=== PATIENT | female | born 1940 | race Caucasian/White ===

== ENCOUNTER → 2017-02-28 | Outpatient (CLI) | payer MEDICARE ==
[2017-02-28 10:04] LABS: ANION GAP 12 (5-19); BLOOD UREA NITROGEN 20 mg/dL (7-20); CALCIUM 10.4 mg/dL (8.4-10.2); CARBON DIOXIDE 25 mmol/L (22-30); CHLORIDE 109 mmol/L (98-107); CREATININE RESULT 1.24 mg/dL (0.52-1.25); GLUCOSE 70 mg/dL (75-110); POTASSIUM 5.2 mmol/L (3.6-5.0); SODIUM 146.3 mmol/L (137-145)
[2017-03-01 11:38] LABS: CREATININE URINE 81.7 mg/dL (Not Estab.); MICROALBUMIN URINE 15.1 ug/mL (Not Estab.)
[2017-03-01 13:07] LABS: VITAMIN D 25-HYDROXY 35.4 ng/mL (30.0-100.0)
== END ==
LOC: OD 08:34
PROVIDERS: ATTEND Internal Medicine Nephrology
DX: N18.3 Chronic kidney disease, stage 3 (moderate) (principal)
CPT/HCPCS: 36415; 80048; 82043; 82306; 82570; 83970; 84100

== ENCOUNTER → 2018-03-31 | Outpatient (CLI) | payer MEDICARE ==
[2018-03-31 11:40] LABS: APPEARANCE,URINE SLIGHTLY-CLOUDY; BILIRUBIN,URINE NEGATIVE (NEGATIVE); COLOR,URINE YELLOW; GLUCOSE, URINE NEGATIVE (NEGATIVE); KETONES,URINE NEGATIVE (NEGATIVE); LEUKOCYTE ESTERASE,URINE NEGATIVE (NEGATIVE); NITRITE,URINE NEGATIVE (NEGATIVE); PROTEIN,URINE NEGATIVE (NEGATIVE); URINE SPECIFIC GRAVITY 1.013; UROBILINOGEN,URINE NEGATIVE mg/dL (<2.0)
[2018-03-31 11:54] LABS: ALBUMIN 4.5 g/dL (3.5-5.0); ANION GAP 14 (5-19); BLOOD UREA NITROGEN 21 mg/dL (7-20); CALCIUM 11.1 mg/dL (8.4-10.2); CARBON DIOXIDE 29 mmol/L (22-30); CHLORIDE 104 mmol/L (98-107); GLUCOSE 86 mg/dL (75-110); PHOSPHORUS 4.1 mg/dL (2.5-4.5); POTASSIUM 4.8 mmol/L (3.6-5.0); SODIUM 147.2 mmol/L (137-145)
[2018-04-01 12:38] LABS: CREATININE URINE 95.2 mg/dL (Not Estab.); MICROALBUMIN URINE 20.8 ug/mL (Not Estab.)
== END ==
LOC: OD 10:41
PROVIDERS: ATTEND Internal Medicine Nephrology
DX: I12.9 Hypertensive chronic kidney disease with stage 1 through stage 4 chronic kidney disease, or unspecified chronic kidney disease (principal); N18.3 Chronic kidney disease, stage 3 (moderate); D64.9 Anemia, unspecified
CPT/HCPCS: 36415; 80048; 81001; 82040; 82043; 82306; 82570; 83970; 84100

== ENCOUNTER → 2018-04-02 | Outpatient (CLI) | payer MEDICARE ==
--- NOTE | 2018-04-02 16:16 | RADIOLOGY REPORT (SQ) ---
EXAM DESCRIPTION: U/S RETROPERITON (RENAL/AORTA) COMPLETED DATE/TIME: 04/02/2018 4:06 pm REASON FOR STUDY: N18.3 CHRONIC KIDNEY DISEASE, STAGE 3 (MODERATE) N18.3 CHRONIC KIDNEY DISEASE, ST AGE 4 (MODERATE) COMPARISON: None. TECHNIQUE: Dynamic and static grayscale images acquired of the kidneys and bladder and recorded on P ACS. Additional selected color Doppler and spectral images recorded. LIMITATIONS: None. FINDINGS: RIGHT KIDNEY: 9.3 cm. Increased cortical echogenicity. 1 cm cyst upper pole. No hyd ronephrosis. No calcifications. LEFT KIDNEY: 8.4 cm. Increased cortical echogenicity. No solid or suspicious masses. No hydron ephrosis. No calcifications. BLADDER: No masses. OTHER: No other significant finding. IMPRESSION: CHRONIC MEDICAL RENAL DISEASE. NO HYDRONEPHROSIS. TECHNICAL DOCUMENTATION: JOB ID: [id number] [email or web address]- All Rights Reserved Reading location - IP/workstation name: [email or web address]
== END ==
LOC: MERGE 15:30 → RAD 15:50
PROVIDERS: ATTEND Internal Medicine Nephrology
DX: N18.3 Chronic kidney disease, stage 3 (moderate) (principal)
CPT/HCPCS: 76770

== ENCOUNTER → 2018-06-29 | Outpatient (CLI) | payer MEDICARE ==
[2018-06-29 11:20] LABS: ANION GAP 12 (5-19); BLOOD UREA NITROGEN 23 mg/dL (7-20); CALCIUM 9.9 mg/dL (8.4-10.2); CARBON DIOXIDE 25 mmol/L (22-30); CHLORIDE 110 mmol/L (98-107); GLUCOSE 80 mg/dL (75-110); POTASSIUM 5.1 mmol/L (3.6-5.0); SODIUM 147.1 mmol/L (137-145)
[2018-06-30 15:37] LABS: A/G RATIO 1.4 (0.7-1.7); ALBUMIN 2 3.7 g/dL (2.9-4.4); ALPHA-2-GLOBULIN 2 0.9 g/dL (0.4-1.0); GAMMA GLOBULIN 0.6 g/dL (0.4-1.8); GLOBULIN TOTAL 2.7 g/dL (2.2-3.9); MONOCLONAL SPIKE Not Observed g/dL (Not Observ); PROTEIN TOTAL SERUM 6.4 g/dL (6.0-8.5)
== END ==
LOC: OD 09:59
PROVIDERS: ATTEND Internal Medicine Nephrology
DX: N18.3 Chronic kidney disease, stage 3 (moderate) (principal); E83.52 Hypercalcemia
CPT/HCPCS: 36415; 80048; 84165

== ENCOUNTER → 2018-10-28 | Outpatient (CLI) | payer MEDICARE ==
[2018-10-28 10:22] LABS: APPEARANCE,URINE SLIGHTLY-CLOUDY; BILIRUBIN,URINE NEGATIVE (NEGATIVE); COLOR,URINE YELLOW; GLUCOSE, URINE NEGATIVE (NEGATIVE); KETONES,URINE NEGATIVE (NEGATIVE); LEUKOCYTE ESTERASE,URINE NEGATIVE (NEGATIVE); NITRITE,URINE NEGATIVE (NEGATIVE); PROTEIN,URINE 30 mg/dL (NEGATIVE); URINE SPECIFIC GRAVITY 1.015; UROBILINOGEN,URINE NEGATIVE mg/dL (<2.0)
[2018-10-28 10:38] LABS: ANION GAP 13 (5-19); BLOOD UREA NITROGEN 14 mg/dL (7-20); CALCIUM 9.6 mg/dL (8.4-10.2); CARBON DIOXIDE 22 mmol/L (22-30); CHLORIDE 109 mmol/L (98-107); GLUCOSE 97 mg/dL (75-110); POTASSIUM 4.3 mmol/L (3.6-5.0); SODIUM 144.1 mmol/L (137-145)
[2018-10-28 10:44] LABS: ABSOLUTE BASOPHILS # (AUTO) 0.1 10^3/uL (0.0-0.2); ABSOLUTE EOSINOPHILS # (AUTO) 0.5 10^3/uL (0.0-0.6); ABSOLUTE LYMPHOCYTES (AUTO) 1.8 10^3/uL (0.5-4.7); ABSOLUTE MONOCYTES (AUTO) 0.7 10^3/uL (0.1-1.4); ABSOLUTE NEUT (AUTO) 5.5 10^3/uL (1.7-8.2); BASOPHILS % (AUTO) 1.4 % (0-2); EOSINOPHILS % (AUTO) 5.3 % (0-6); HEMATOCRIT 32.5 % (36.0-47.0); HEMOGLOBIN 10.9 g/dL (12.0-15.5); LYMPHOCYTES % (AUTO) 21.3 % (13-45); MEAN CORPUSCULAR HEMOGLOBIN 31.2 pg (27.0-33.4); MEAN CORPUSCULAR HGB CONC 33.5 g/dL (32.0-36.0); MEAN CORPUSCULAR VOLUME 93 fl (80-97); MONOCYTES % (AUTO) 8.2 % (3-13); PLATELET COUNT 318 10^3/uL (150-450); SEGMENTED NEUTROPHILS % (AUTO) 63.8 % (42-78); TOTAL CELLS COUNTED % (AUTO) 100 %; WHITE BLOOD COUNT 8.6 10^3/uL (4.0-10.5)
== END ==
LOC: OD 09:22
PROVIDERS: ATTEND Internal Medicine Nephrology
DX: N18.3 Chronic kidney disease, stage 3 (moderate) (principal); D64.9 Anemia, unspecified
CPT/HCPCS: 36415; 80048; 81001; 85025

== ENCOUNTER 2018-12-17 23:52 | Inpatient (IN) | payer MEDICARE ==
--- NOTE | 2018-12-18 00:54 | RADIOLOGY REPORT (SQ) ---
EXAM DESCRIPTION: XR CHEST 1 VIEW COMPLETED DATE/TME: 12/18/2018 00:07 CLINICAL HISTORY: 78 years, Female, fall, pain COMPARISON: 06/20/2016 chest NUMBER OF VIEWS: 1 TECHNIQUE: Portable chest LIMITATIONS: None. FINDINGS: Heart size is normal. Osteopenia. Underlying hyperinflation. Lungs are clear. No pneumothorax IMPRESSION: Underlying hyperinflation. Lungs are clear copyright 2010 [employer]- All Rights Reserved
--- NOTE | 2018-12-18 01:08 | RADIOLOGY REPORT (SQ) ---
EXAM DESCRIPTION: XR HIP 1 VIEW BILATERAL COMPLETED DATE/TME: 12/18/2018 00:07 CLINICAL HISTORY: 78 years, Female, fall, pain COMPARISON: None. NUMBER OF VIEWS: 5 TECHNIQUE: AP pelvis and two-view each hip LIMITATIONS: None. FINDINGS: Osteopenia. Degenerative changes of the hips bilaterally. Slightly impacted, nondisplaced intertrochanteric fracture deformity of the left hip. No dislocation. No other acute fractures. IMPRESSION: Slightly impacted, nondisplaced left intertrochanteric hip fracture. Osteopenia copyright 2010 [employer]- All Rights Reserved
[2018-12-18] MEDS ORDERED: LIDOCAINE 5% (700 MG) TRANSDERMAL ADH..PATCH TP ONE (01:32)
[2018-12-18] MEDS ORDERED: ACETAMINOPHEN 325 MG TABLET PO ONE (01:32)
[2018-12-18 01:42] LABS: ABSOLUTE BASOPHILS # (AUTO) 0.2 10^3/uL (0.0-0.2); ABSOLUTE EOSINOPHILS # (AUTO) 0.1 10^3/uL (0.0-0.6); ABSOLUTE LYMPHOCYTES (AUTO) 0.9 10^3/uL (0.5-4.7); ABSOLUTE MONOCYTES (AUTO) 1.1 10^3/uL (0.1-1.4); ABSOLUTE NEUT (AUTO) 12.9 10^3/uL (1.7-8.2); BASOPHILS % (AUTO) 1.1 % (0-2); EOSINOPHILS % (AUTO) 0.8 % (0-6); HEMATOCRIT 30.2 % (36.0-47.0); LYMPHOCYTES % (AUTO) 5.7 % (13-45); MEAN CORPUSCULAR HEMOGLOBIN 31.2 pg (27.0-33.4); MEAN CORPUSCULAR HGB CONC 33.1 g/dL (32.0-36.0); MEAN CORPUSCULAR VOLUME 94 fl (80-97); MONOCYTES % (AUTO) 6.9 % (3-13); PLATELET COUNT 298 10^3/uL (150-450); RED CELL DISTRIBUTION WIDTH 15.1 % (11.5-14.0); SEGMENTED NEUTROPHILS % (AUTO) 85.5 % (42-78); TOTAL CELLS COUNTED % (AUTO) 100 %; WHITE BLOOD COUNT 15.1 10^3/uL (4.0-10.5)
[2018-12-18] MEDS ORDERED: DIPH/PERTUSS(ACELL)/TETANUS VAC/PF 0.5 ML SYR (>=10YO) IM ONE (01:48)
--- NOTE | 2018-12-18 01:48 | ER Document Report ---
ED General - General Chief Complaint: Fall Stated Complaint: FALL Time Seen by Provider: 12/18/18 00:06 Primary Care Provider: SUMI GILLESPIE MD [ACTIVE STAFF] - Follow up as needed Cannot obtain history due to: Dementia Notes: Patient is a 78-year-old female with past medical history of Alzheimer's dementia, hypertension, chronic kidney disease, presents after a fall of unclear mechanism. The patient is profoundly demented, unable to provide any history. Apparently she told EMS that she crawled across the floor to contact 911. Family and patient are unsure how long she was down the ground. The patient focuses on severe, constant, throbbing pain to her left hip. States any attempt at movement dramatically worsens this pain. Nothing improves the pain. No history of similar injury in the past. Is uncertain of whether or not she hit her head or neck tonight. Does not take any form of anticoagulation. TRAVEL OUTSIDE OF THE [place] IN LAST 30 DAYS: No - Related Data Allergies/Adverse Reactions: Penicillins Allergy (Verified 06/20/16 10:52) Past Medical History - General Information source: Patient, Relative Cannot obtain history due to: Dementia - Social History Smoking Status: Never Smoker Chew tobacco use (# tins/day): No Frequency of alcohol use: None Drug Abuse: None Lives with: Alone Family History: Reviewed & Not Pertinent Patient has suicidal ideation: No Patient has homicidal ideation: No - Past Medical History Cardiac Medical History: Reports: Hx Hypertension Pulmonary Medical History: Reports: Hx Asthma, Hx COPD Renal/ Medical History: Denies: Hx Peritoneal Dialysis Psychiatric Medical History: Reports: Hx Dementia Past Surgical History: Reports: Hx Appendectomy, Hx Cholecystectomy, Hx Hysterectomy - Immunizations Hx Diphtheria, Pertussis, Tetanus Vaccination: Yes Review of Systems - Review of Systems Notes: Constitutional: Negative for fever. Eyes: Negative for visual changes. ENT: Negative for facial injury Cardiovascular: Negative for chest injury. Respiratory: Negative for shortness of breath. Gastrointestinal: Negative for abdominal injury. Genitourinary: Negative for genital injury Musculoskeletal: Positive for left hip injury Skin: Positive for laceration/abrasions. Neurological: Negative for head injury. Physical Exam - Vital signs Interpretation: Normal Notes: PHYSICAL EXAMINATION: GENERAL: Frail, elderly female in no acute distress HEAD: Atraumatic, normocephalic. EYES: Pupils equal round and reactive to light, extraocular movements intact, sclera anicteric, conjunctiva are normal. ENT: nares patent, no oral pharyngeal trauma. No hemotympanum, no Prater's sign, no raccoon eyes. NECK: No midline cervical spine tenderness. Patient able to move their head to 45 bilaterally without any discomfort. LUNGS: Breath sounds clear to auscultation bilaterally and equal. No wheezes rales or rhonchi. HEART: Regular rate and rhythm without murmurs. CHEST WALL: No ecchymosis over the chest wall. ABDOMEN: Soft, nontender, normoactive bowel sounds. No guarding, no rebound. No abdominal bruising EXTREMITIES: Visible shortening and external rotation of the left lower extremity relative to the right BACK: No midline spinal tenderness, step-offs, or deformities. NEUROLOGICAL: Moves all extremities spontaneously on command PSYCH: Moderately anxious, alert, oriented to person SKIN: Warm, Dry, normal turgor, superficial laceration overlying the dorsum of the left wrist Course - Re-evaluation Re-evalutation: 12/18/18 01:44 Presentation of a frail elderly female after a fall. Patient denies a syncopal episode as the cause for today's fall although she is quite demented and not a reliable historian. No focal neurologic deficits on exam, no evidence of basilar skull fracture on exam without evidence of hemotympanum, raccoon eyes, or periauricular hematoma. No papilledema. Patient is not on anticoagulation. GCS is 15. No loss of consciousness. No episodes of vomiting. However, based on patient's age a CT of the head has been obtained which is negative for any acute intracranial bleed. Likewise, patient was unable to be clinically cleared due to age by [place] cervical spine criteria. A CT of the cervical spine was also obtained and likewise is negative for any acute fracture. No indication for further imaging of the cervical spine. Patient has severe pain in her left hip and obvious shortening of the left hip by approximately 1 cm. A hip x-ray does reveal a slightly displaced, impacted intertrochanteric fracture on the left. Patient was also complaining of some right-sided chest discomfort where she believes she hit her chest. An x-ray of the chest does not demonstrate any acute rib fractures. The patient has several areas of bruising over her right hand and skin avulsion over the left wrist. X-rays of these areas noted to be unremarkable. Blood work and urinalysis are pending. Pain control being provided. I have discussed with Dr. Deleon who will consult for surgical management in the morning. The patient will be admitted to the hospitalist. - Laboratory Result Diagrams: 12/18/18 00:07 12/18/18 00:07 Laboratory results interpreted by me: 12/18/18 12/18/18 12/18/18 00:07 00:07 02:50 WBC 15.1 H RBC 3.20 L Hgb 10.0 L Hct 30.2 L RDW 15.1 H Seg Neutrophils % 85.5 H Lymphocytes % 5.7 L Absolute Neutrophils 12.9 H Chloride 108 H Creatinine 1.47 H Est GFR ( Amer) 42 L Est GFR (Non-Af Amer) 34 L Glucose 131 H Urine Ascorbic Acid 40 H - Diagnostic Test Radiology reviewed: Image reviewed, Reports reviewed Radiology results interpreted by me: 12/18/18 04:30 Left hip x-ray: Intertrochanteric fracture Discharge - Discharge Clinical Impression: Hip fracture Qualifiers: Encounter type: initial encounter Fracture type: closed Laterality: left Qualified Code(s): S72.002A - Fracture of unspecified part of neck of left femur, initial encounter for closed fracture Dementia Qualifiers: Dementia type: unspecified type Dementia behavioral disturbance: without behavioral disturbance Qualified Code(s): F03.90 - Unspecified dementia without behavioral disturbance Fall Qualifiers: Encounter type: initial encounter Qualified Code(s): W19.XXXA - Unspecified fall, initial encounter Condition: Fair Disposition: ADMITTED INPATIENT Admitting Provider: Hospitalist Unit Admitted: Medical Floor Referrals: SUMI GILLESPIE MD [ACTIVE STAFF] - Follow up as needed
[2018-12-18 01:51] LABS: ANION GAP 7 (5-19); BLOOD UREA NITROGEN 18 mg/dL (7-20); CALCIUM 9.4 mg/dL (8.4-10.2); CARBON DIOXIDE 25 mmol/L (22-30); CHLORIDE 108 mmol/L (98-107); GLUCOSE 131 mg/dL (75-110); POTASSIUM 4.3 mmol/L (3.6-5.0); SODIUM 140.4 mmol/L (137-145)
[2018-12-18] MEDS: MORPHINE SULFATE 10 MG/ML INJ IV PRN ×5 (01:54→20:37)
[2018-12-18] MEDS ORDERED: EMTRICITABINE/TENOFOVIR 200-300 MG TAB (3 TAB/ER DISP) PO PRN (02:48)
[2018-12-18] MEDS ORDERED: RALTEGRAVIR 400 MG TAB (6 TAB/ER DISP) PO PRN (02:49)
[2018-12-18 03:02] LABS: APPEARANCE,URINE CLEAR; BILIRUBIN,URINE NEGATIVE (NEGATIVE); COLOR,URINE YELLOW; GLUCOSE, URINE NEGATIVE (NEGATIVE); KETONES,URINE NEGATIVE (NEGATIVE); LEUKOCYTE ESTERASE,URINE NEGATIVE (NEGATIVE); NITRITE,URINE NEGATIVE (NEGATIVE); PROTEIN,URINE NEGATIVE (NEGATIVE); URINE SPECIFIC GRAVITY 1.008; UROBILINOGEN,URINE NEGATIVE mg/dL (<2.0)
--- NOTE | 2018-12-18 03:42 | RADIOLOGY REPORT (SQ) ---
EXAM DESCRIPTION: CT HEAD WITHOUT IV CONTRAST COMPLETED DATE/TME: 12/18/2018 01:44 CLINICAL HISTORY: 78 years, Female, fall COMPARISON: None Available. Technique: Contiguous axial images of the brain were obtained without the administration of intravenous contrast. Coronal and sagittal reformats obtained and reviewed. This exam was performed according to our departmental dose-optimization program which includes use of Automated Exposure Control, adjustment of the mA and/or kV according to patient size and/or use of iterative reconstruction technique. Findings: Brain: Mild cerebral atrophy. Periventricular and deep white matter hypodensities, most commonly due to nonspecific white matter chronic microvascular ischemia.No hemorrhage. No territorial infarct. No mass effect. No herniation. Ventricles: Within normal limits for patient's age. Bones: No acute osseous abnormality. Paranasal sinuses: Unremarkable. Mastoid air cells: Unremarkable. Soft tissues: No acute abnormality. IMPRESSION: No acute intracranial abnormalities.
--- NOTE | 2018-12-18 03:53 | RADIOLOGY REPORT (SQ) ---
EXAM DESCRIPTION: XR WRIST 3 OR MORE VIEWS COMPLETED DATE/TME: 12/18/2018 01:48 CLINICAL HISTORY: 78 years, Female, trauma, fall COMPARISON: None. NUMBER OF VIEWS: Three TECHNIQUE: AP, oblique and lateral views of the left wrist LIMITATIONS: None. FINDINGS: Mild osteopenia. Mild degenerative changes in the first carpometacarpal joint. No acute fractures. Soft tissues are unremarkable. IMPRESSION: No acute osseous abnormalities. copyright 2010 [employer]- All Rights Reserved
--- NOTE | 2018-12-18 03:55 | RADIOLOGY REPORT (SQ) ---
EXAM DESCRIPTION: XR HAND 3 OR MORE VIEWS COMPLETED DATE/TME: 12/18/2018 01:48 CLINICAL HISTORY: 78 years, Female, trauma, fall COMPARISON: None. NUMBER OF VIEWS: Three TECHNIQUE: AP, oblique and lateral views of the right hand LIMITATIONS: None. FINDINGS: Mild degenerative changes in the first carpometacarpal joint. No acute fractures. No dislocation. The tip of the index finger is obscured by pulse oximeter. IMPRESSION: No acute osseous abnormalities. copyright 2010 [employer]- All Rights Reserved
--- NOTE | 2018-12-18 03:58 | RADIOLOGY REPORT (SQ) ---
EXAM DESCRIPTION: CT CERVICAL SPINE WITHOUT IV CONTRAST COMPLETED DATE/TME: 12/18/2018 01:44 CLINICAL HISTORY: 78 years, Female, fall COMPARISON: None. TECHNIQUE: 177 Images stored on PACS. All CT scanners at this facility use dose modulation, iterative reconstruction, and/or weight based dosing when appropriate to reduce radiation dose to as low as reasonably achievable (ALARA). [facility]: Dose Right [facility]: CareDose [facility]: Dose Right [facility]: Teradose 4D [facility]: ForeSee LIMITATIONS: None. FINDINGS: Evaluation of spinal canal contents limited due to CT technique. However, vertebral body height and alignment is preserved. The atlantoaxial space is preserved. The lateral masses are not displaced. Minor multilevel facet arthropathy throughout the cervical spine. Limited evaluation of extraspinal anatomic structures shows emphysematous changes in the lung apices. Left sphenoid sinusitis.. IMPRESSION: Negative for acute C-spine abnormality. Multilevel degenerative change. Left sphenoid sinusitis. Emphysematous changes.. TECHNICAL DOCUMENTATION: Quality ID # 436: Final reports with documentation of one or more dose reduction techniques (e.g., Automated exposure control, adjustment of the mA and/or kV according to patient size, use of iterative reconstruction technique) copyright 2010 [employer]- All Rights Reserved
[2018-12-18] MEDS ORDERED: DEXTROSE 40% GEL 15 GM TUBE PO PRN ×2 (07:57)
[2018-12-18] MEDS ORDERED: GLUCAGON,HUMAN RECOMB 1 MG INJ SUBCUT PRN (07:57)
[2018-12-18] MEDS ORDERED: ONDANSETRON HCL INJ/PF 4 MG/2 ML SDV IV PRN (07:57)
[2018-12-18] MEDS ORDERED: DEXTROSE 50%-WATER 25 GM/50 ML DISP.SYRIN IV PRN ×2 (07:57)
[2018-12-18] MEDS ORDERED: ACETAMINOPHEN 325 MG TABLET PO PRN (08:06)
[2018-12-18] MEDS ORDERED: NICOTINE 21 MG/24 HR PATCH.TD24 TD PRN (08:06)
[2018-12-18] MEDS ORDERED: ACETAMINOPHEN 650 MG SUPP.RECT PR PRN (08:06)
[2018-12-18] MEDS ORDERED: MORPHINE SULFATE 10 MG/ML INJ IV PRN (08:06)
--- NOTE | 2018-12-18 08:29 | PDOC H&P ---
History of Present Illness Admission Date/PCP: 12/18/18 04:41 MIGUEL LOWRY MD Patient complains of: Left hip pain History of Present Illness: ARPIT ARITA is a 78 year old female who was presented to the emergency room via EMS with a history that she had fallen at some time at home and had developed sudden pain of her left hip and inability to stand on the hip after the fall. She apparently crawled to the phone in order to get help by contacting 911. Patient unfortunately has rather profound dementia and is unable to contribute any more useful information to her medical care. She is unsure of how long she may have been down and is not sure of the circumstances of the fall she is however certain that her left hip is severely painful whenever it is moved or pressure is applied to the area. In the emergency room she was found to have an intertrochanteric fracture of the left hip and subsequently will be admitted to our service for medical care and Dr. Deleon will be consulted for orthopedic evaluation and treatment. Past Medical History Past Medical History: History for past medical, social, family histories is obtained primarily from available charts, as the patient has severe dementia Cardiac Medical History: Reports: Hypertension Denies: Atrial Fibrillation, Coronary Artery Disease, DVT, Hyperlipidema, Pulmonary Embolism Pulmonary Medical History: Reports: Asthma, Chronic Obstructive Pulmonary Disease (COPD) EENT Medical History: Reports: None Neurological Medical History: Denies: Hemorrhagic CVA, Ischemic CVA, Seizures Endocrine Medical History: Denies: Diabetes Mellitus Type 1, Diabetes Mellitus Type 2, Hyperthyroidism, Hypothyroidism Renal/ Medical History: Denies: Chronic Kidney Disease, Nephrolithiasis Malignancy Medical History: Reports: None GI Medical History: Denies: Cirrhosis, Hepatitis Musculoskeltal Medical History: Reports: Arthritis, Other - Osteopenia Denies: Fibromyalgia Skin Medical History: Denies: Eczema, Psoriasis Psychiatric Medical History: Reports: Dementia Denies: Alcohol Dependency, Substance Abuse, Tobacco Dependency Traumatic Medical History: Reports: None Hematology: Reports: Anemia Denies: Bleeding Tendencies Infectious Medical History: Reports: None Past Surgical History Past Surgical History: Reports: Appendectomy, Cholecystectomy, Hysterectomy Social History Information Source: Patient Lives with: Alone Smoking Status: Never Smoker Frequency of Alcohol Use: None Hx Recreational Drug Use: No Drugs: None Hx Prescription Drug Abuse: No - Advance Directive Resuscitation Status: Full Code Surrogate healthcare decision maker:: Son Family History Family History: Hypertension Parental Family History Reviewed: Yes Children Family History Reviewed: Yes Sibling(s) Family History Reviewed.: Yes Medication/Allergy Home Medications: Albuterol Sulfate [Proair Hfa Inhalation Aerosol 8.5 gm Mdi] 1 puff IH Q4 PRN 01/05/16 Albuterol Sulfate [Ventolin Hfa] 1 - 2 puff IH Q4 PRN 01/05/16 Alendronate Sodium [Binosto] 70 mg PO Q7D 01/05/16 Losartan Potassium [Cozaar 50 mg Tablet] 50 mg PO DAILY 01/05/16 Albuterol Sulfate [Proair HFA] 1 - 2 puff IH Q4 PRN 06/20/16 Alendronate Sodium [Fosamax 70 mg Tablet] 1 tab PO Q1 06/20/16 Budesonide/Formoterol Fumarate [Symbicort HFA 160-4.5 mcg Inhaler 6 gm] 2 puff IH BID 06/20/16 Donepezil HCl [Aricept] 10 mg PO DAILY 06/20/16 Losartan Potassium 25 mg PO DAILY 06/20/16 Aspirin [Ecotrin 81 mg EC Tablet] 81 mg PO DAILY #30 tabec 06/22/16 Loperamide HCl [Imodium 2 mg Capsule] 2 mg PO Q6HP PRN #30 capsule 06/22/16 Allergies/Adverse Reactions: Penicillins Allergy (Verified 06/20/16 10:52) Review of Systems ROS unobtainable: Due to mental status - Dementia Physical Exam Vital Signs: Intake & Output 12/16/18 12/17/18 12/18/18 23:59 23:59 23:59 Weight 45.9 kg General appearance: PRESENT: cooperative, mild distress - Secondary left hip pain, thin Head exam: PRESENT: atraumatic, normocephalic Eye exam: PRESENT: conjunctiva pink, EOMI. ABSENT: scleral icterus Ear exam: PRESENT: normal external ear exam. ABSENT: bleeding, drainage Mouth exam: PRESENT: dry mucosa, neck supple Neck exam: PRESENT: full ROM. ABSENT: JVD, thyromegaly, tracheal deviation Respiratory exam: PRESENT: clear to auscultation raeann, symmetrical, unlabored Cardiovascular exam: PRESENT: RRR, systolic murmur - 2/6 systolic murmur at the aortic root with radiation to the neck. ABSENT: clicks, gallop, rubs Pulses: PRESENT: normal radial pulses, normal dorsalis pedis pul Vascular exam: PRESENT: normal capillary refill. ABSENT: pallor GI/Abdominal exam: PRESENT: normal bowel sounds, soft Rectal exam: PRESENT: deferred Extremities exam: PRESENT: tenderness - Left hip pain on palpation and movement. ABSENT: joint swelling, pedal edema Musculoskeletal exam: PRESENT: deformity - Left lower extremity is shortened and externally rotated, tenderness - Left hip with decreased range of motion secondary to pain. ABSENT: dislocation Neurological exam: PRESENT: alert, awake, oriented to person, CN II-XII grossly intact. ABSENT: oriented to place, oriented to time, oriented to situation, mo tor sensory deficit Psychiatric exam: PRESENT: appropriate affect, normal mood Skin exam: PRESENT: dry, intact, warm. ABSENT: jaundice, rash, urticaria Results Laboratory Results: 12/18/18 00:07 12/18/18 00:07 12/18/18 12/18/18 12/18/18 00:07 00:07 02:50 WBC 15.1 H RBC 3.20 L Hgb 10.0 L Hct 30.2 L MCV 94 MCH 31.2 MCHC 33.1 RDW 15.1 H Plt Count 298 Seg Neutrophils % 85.5 H Lymphocytes % 5.7 L Monocytes % 6.9 Eosinophils % 0.8 Basophils % 1.1 Absolute Neutrophils 12.9 H Absolute Lymphocytes 0.9 Absolute Monocytes 1.1 Absolute Eosinophils 0.1 Absolute Basophils 0.2 Sodium 140.4 Potassium 4.3 Chloride 108 H Carbon Dioxide 25 Anion Gap 7 BUN 18 Creatinine 1.47 H Est GFR ( Amer) 42 L Est GFR (Non-Af Amer) 34 L Glucose 131 H Calcium 9.4 Urine Color YELLOW Urine Appearance CLEAR Urine pH 5.0 Ur Specific [place] 1.008 Urine Protein NEGATIVE Urine Glucose (UA) NEGATIVE Urine Ketones NEGATIVE Urine Blood NEGATIVE Urine Nitrite NEGATIVE Ur Leukocyte Esterase NEGATIVE Urine WBC (Auto) 1 Urine RBC (Auto) 0 12/18/18 00:07 Troponin I < 0.012 Impressions: Chest X-Ray 12/18/18 00:07 IMPRESSION: Underlying hyperinflation. Lungs are clear copyright 2010 [employer]- All Rights Reserved Hip X-Ray 12/18/18 00:07 IMPRESSION: Slightly impacted, nondisplaced left intertrochanteric hip fracture. Osteopenia copyright 2010 [employer]- All Rights Reserved Cervical Spine CT 12/18/18 01:44 IMPRESSION: Negative for acute C-spine abnormality. Multilevel degenerative change. Left sphenoid sinusitis. Emphysematous changes.. TECHNICAL DOCUMENTATION: Quality ID # 436: Final reports with documentation of one or more dose reduction techniques (e.g., Automated exposure control, adjustment of the mA and/or kV according to patient size, use of iterative reconstruction technique) copyright 2010 [email or web address]- All Rights Reserved Head CT 12/18/18 01:44 IMPRESSION: No acute intracranial abnormalities. Hand X-Ray 12/18/18 01:48 IMPRESSION: No acute osseous abnormalities. copyright 2010 [employer]- All Rights Reserved Wrist X-Ray 12/18/18 01:48 IMPRESSION: No acute osseous abnormalities. copyright 2010 [employer]- All Rights Reserved Assessment & Plan - Diagnosis (1) Closed intertrochanteric fracture of left femur Qualifiers: Encounter type: initial encounter Fracture alignment: displaced Qualified Code(s): S72.142A - Displaced intertrochanteric fracture of left femur, initial encounter for closed fracture Is this a current diagnosis for this admission?: Yes Plan: Dr. Rm Deleon will be consulted for surgical evaluation and treatment. Patient's pain will be controlled with morphine sulfate 2-4 mg IV every 2 hours as needed for pain per sliding scale. Additionally she will receive IV fluid resuscitation and maintenance as well as a John catheter will be positioned. (2) Dementia Qualifiers: Dementia type: Alzheimer's disease Dementia behavioral disturbance: without behavioral disturbance Qualified Code(s): F03.90 - Unspecified dementia witho ut behavioral disturbance Is this a current diagnosis for this admission?: Yes Plan: Patient will be treated with behavioral measures during her hospital course. (3) Hypertension Qualifiers: Hypertension type: essential hypertension Qualified Code(s): I10 - Essential (primary) hypertension Is this a current diagnosis for this admission?: Yes Plan: Patient will be continued on her usual antihypertensive therapy when she is again able to take oral medications. (4) Chronic obstructive pulmonary disease Qualifiers: COPD type: unspecified COPD Qualified Code(s): J44.9 - Chronic obstructive pulmonary disease, unspecified Is this a current diagnosis for this admission?: Yes Plan: Patient will be treated with an aggressive nebulizer therapy regimen to promote better pulmonary function and thereby improve her postoperative recovery. - Time Time Spent: 30 to 50 Minutes Critical Time spent with patient: Less than 15 minutes Medications reviewed and adjusted accordingly: Yes Anticipated discharge: SNF - Inpatient Certification Based on my medical assessment, after consideration of the patient's comorbidities, presenting symptoms, or acuity I expect that the services needed warrant INPATIENT care.: Yes I certify that my determination is in accordance with my understanding of Medicare's requirements for reasonable and necessary INPATIENT services [42 CFR 412.3e].: Yes Medical Necessity: Need Close Monitoring Due to Risk of Patient Decompensation, Need for Pain Control, Need for Surgery, Risk of Complication if Not Cared For in Hospital
--- NOTE | 2018-12-18 08:59 | PDOC H&P ---
History of Present Illness Admission Date/PCP: 12/18/18 04:41 MIGUEL LOWRY MD History of Present Illness: ARPIT ARITA is a 78 year old female Patient is a 78-year-old white female with dementia and unknown ambulatory capacity who presents the emergency room status post a fall and unable to bear weight on the left lower extremity. Evaluation emergency room with x-rays demonstrated displaced basicervical left femoral neck fracture Past Medical History Cardiac Medical History: Reports: Hypertension Denies: Atrial Fibrillation, Coronary Artery Disease, DVT, Hyperlipidema, Pulmonary Embolism Pulmonary Medical History: Reports: Asthma, Chronic Obstructive Pulmonary Disease (COPD) EENT Medical History: Reports: None Neurological Medical History: Denies: Hemorrhagic CVA, Ischemic CVA, Seizures Endocrine Medical History: Denies: Diabetes Mellitus Type 1, Diabetes Mellitus Type 2, Hyperthyroidism, Hypothyroidism Renal/ Medical History: Denies: Chronic Kidney Disease, Nephrolithiasis Malignancy Medical History: Reports: None GI Medical History: Denies: Cirrhosis, Hepatitis Musculoskeltal Medical History: Reports: Arthritis, Other - Osteopenia Denies: Fibromyalgia Skin Medical History: Denies: Eczema, Psoriasis Psychiatric Medical History: Reports: Dementia Denies: Alcohol Dependency, Substance Abuse, Tobacco Dependency Traumatic Medical History: Reports: None Hematology: Reports: Anemia Denies: Bleeding Tendencies Infectious Medical History: Reports: None Past Surgical History Past Surgical History: Reports: Appendectomy, Cholecystectomy, Hysterectomy Social History Information Source: [facility] Records Lives with: Alone Smoking Status: Never Smoker Frequency of Alcohol Use: None Hx Recreational Drug Use: No Drugs: None Hx Prescription Drug Abuse: No - Advance Directive Resuscitation Status: Full Code Family History Family History: Hypertension Parental Family History Reviewed: No Children Family History Reviewed: No Sibling(s) Family History Reviewed.: No Medication/Allergy Home Medications: Albuterol Sulfate [Proair Hfa Inhalation Aerosol 8.5 gm Mdi] 1 puff IH Q4 PRN 01/05/16 Albuterol Sulfate [Ventolin Hfa] 1 - 2 puff IH Q4 PRN 01/05/16 Alendronate Sodium [Binosto] 70 mg PO Q7D 01/05/16 Losartan Potassium [Cozaar 50 mg Tablet] 50 mg PO DAILY 01/05/16 Albuterol Sulfate [Proair HFA] 1 - 2 puff IH Q4 PRN 07/28/16 Alendronate Sodium [Fosamax 70 mg Tablet] 1 tab PO Q1 06/20/16 Budesonide/Formoterol Fumarate [Symbicort HFA 160-4.5 mcg Inhaler 6 gm] 2 puff IH BID 06/20/16 Donepezil HCl [Aricept] 10 mg PO DAILY 06/20/16 Losartan Potassium 25 mg PO DAILY 06/20/16 Aspirin [Ecotrin 81 mg EC Tablet] 81 mg PO DAILY #30 tabec 06/22/16 Loperamide HCl [Imodium 2 mg Capsule] 2 mg PO Q6HP PRN #30 capsule 06/22/16 Allergies/Adverse Reactions: Penicillins Allergy (Verified 06/20/16 10:52) Review of Systems ROS unobtainable: Due to mental status Physical Exam Vital Signs: Intake & Output 12/17/18 12/18/18 12/19/18 06:59 06:59 06:59 Weight 45.9 kg Physical Exam: Patient is a frail-appearing relatively small elderly white female lying on an emergency room gurney. Patient is able to complain of pain but is not able to provide any meaningful communication and history. General appearance: PRESENT: mild distress, severe distress Head exam: PRESENT: normocephalic Respiratory exam: PRESENT: unlabored Cardiovascular exam: PRESENT: RRR Pulses: PRESENT: +1 pedal pulses bilateral Vascular exam: PRESENT: normal capillary refill GI/Abdominal exam: PRESENT: soft Rectal exam: PRESENT: deferred Extremities exam: PRESENT: other - Left lower extremity rotated and shortened. There is brisk capillary refill. There is retraction to painful stimuli. Skin exam: PRESENT: dry, intact, warm. ABSENT: cyanosis, rash Results Laboratory Results: 12/18/18 00:07 12/18/18 00:07 12/18/18 12/18/18 12/18/18 00:07 00:07 02:50 WBC 15.1 H RBC 3.20 L Hgb 10.0 L Hct 30.2 L MCV 94 MCH 31.2 MCHC 33.1 RDW 15.1 H Plt Count 298 Seg Neutrophils % 85.5 H Lymphocytes % 5.7 L Monocytes % 6.9 Eosinophils % 0.8 Basophils % 1.1 Absolute Neutrophils 12.9 H Absolute Lymphocytes 0.9 Absolute Monocytes 1.1 Absolute Eosinophils 0.1 Absolute Basophils 0.2 Sodium 140.4 Potassium 4.3 Chloride 108 H Carbon Dioxide 25 Anion Gap 7 BUN 18 Creatinine 1.47 H Est GFR ( Amer) 42 L Est GFR (Non-Af Amer) 34 L Glucose 131 H Calcium 9.4 Urine Color YELLOW Urine Appearance CLEAR Urine pH 5.0 Ur Specific [place] 1.008 Urine Protein NEGATIVE Urine Glucose (UA) NEGATIVE Urine Ketones NEGATIVE Urine Blood NEGATIVE Urine Nitrite NEGATIVE Ur Leukocyte Esterase NEGATIVE Urine WBC (Auto) 1 Urine RBC (Auto) 0 12/18/18 00:07 Troponin I < 0.012 Impressions: Chest X-Ray 12/18/18 00:07 IMPRESSION: Underlying hyperinflation. Lungs are clear copyright 2010 [employer] Hip X-Ray 12/18/18 00:07 IMPRESSION: Slightly impacted, nondisplaced left intertrochanteric hip fracture. Osteopenia copyright 2010 [employer] Reserved Cervical Spine CT 12/18/18 01:44 IMPRESSION: Negative for acute C-spine abnormality. Multilevel degenerative change. Left sphenoid sinusitis. Emphysematous changes.. TECHNICAL DOCUMENTATION: Quality ID # 436: Final reports with documentation of one or more dose reduction techniques (e.g., Automated exposure control, adjustment of the mA and/or kV according to patient size, use of iterative reconstruction technique) copyright [address] [employer] Reserved Head [address] 12/18/18 01:44 IMPRESSION: No acute intracranial abnormalities. Hand X-Ray 12/18/18 01:48 IMPRESSION: No acute osseous abnormalities. copyright 2010 [employer] Reserved Wrist X-Ray 12/18/18 01:48 IMPRESSION: No acute osseous abnormalities. copyright 2011 [employer] All Rights Reserved Status: Imported from PACS Assessment & Plan - Diagnosis (1) Closed intertrochanteric fracture of left femur Qualifiers: Encounter type: initial encounter Fracture alignment: displaced Qualified Code(s): S72.142A - Displaced intertrochanteric fracture of left femur, initial encounter for closed fracture Is this a current diagnosis for this admission?: Yes Plan: 78-year-old white female with a left proximal femur fracture that would be best treated with an open reduction internal fixation. Dr. Adela ventura is aware the patient and will assume her care - Time Time Spent: 50 to 70 Minutes Anticipated discharge: Other Within: Other
--- NOTE | 2018-12-18 09:06 | EKG REPORT ---
SEVERITY:- OTHERWISE NORMAL ECG - SINUS RHYTHM BORDERLINE RIGHT AXIS DEVIATION LOW VOLTAGE IN FRONTAL LEADS : Confirmed by: Julianna Saucedo MD 18-Dec-2018 09:05:35
[2018-12-18] MEDS: ASPIRIN 81 MG TABLET, ENT COATED PO SCH (10:00)
[2018-12-18] MEDS: LOSARTAN POTASSIUM 50 MG TABLET PO SCH (10:00)
[2018-12-18] MEDS: FAMOTIDINE INJ/PF 20 MG/2 ML SDV IV SCH ×2 (10:01→22:11)
[2018-12-18] MEDS: RINGERS SOLUTION,LACTATED 1,000 ML IV PRN (13:52)
[2018-12-18] MEDS: IPRATROPIUM BROMIDE 0.02% NEB 0.5 MG/2.5 ML AMPUL NEB SCH ×2 (15:58→23:28)
[2018-12-18] MEDS: LEVALBUTEROL HCL NEB 1.25 MG/3 ML AMPUL NEB SCH ×2 (15:58→23:28)
[2018-12-18] MEDS: HEPARIN SOD (PORCINE) 5,000 UNIT/ML 1 ML SYRINGE SUBCUT SCH ×2 (16:16→22:10)
--- NOTE | 2018-12-18 19:16 | Progress Note ---
Provider Note Provider Note: Patient is a 78-year-old female with past medical history of Alzheimer's dementia, hypertension, chronic kidney disease, presents after a fall of unclear mechanism. The patient was admitted for a L hip fracture. No other notable injuries. Ortho has been consulted, they plan to operate tomorrow. Upon assessment, the patient is resting in bed. There is no family at the bedside to assist with providing history. The patient states she does not remember how she fell, just states she remembers 'going down.' (+) external rotation and shortening on the LLE. Additionally, the patient complains of R sided chest pain, non-radiating, reproducible with palpation. 1. HIP FRACTURE: XRAY shows impacted, non-displaced intertrocanteric fracture. Ortho consulted. Surgical repair tomorrow. Pain control with morphine and tylenol. 2. CHEST PAIN: EKG shows NSR. cardiac enzymes normal. pain reproducable with palpation. likely musculoskeletal 3. DEMENTIA: home dose namenda and aricept 4. HTN: Home dose losartan
[2018-12-18] MEDS: BUDESONIDE NEB 0.5 MG/2 ML AMPUL NEB SCH (20:24)
[2018-12-18] MEDS ORDERED: CEFAZOLIN 2 GM/D5W RTU 2 GM/50 ML RTUPB IV PRN (21:39)
--- NOTE | 2018-12-18 22:57 | EKG REPORT ---
SEVERITY:- BORDERLINE ECG - SINUS RHYTHM BORDERLINE T ABNORMALITIES, DIFFUSE LEADS : Confirmed by: Julianna Saucedo MD 18-Dec-2018 22:56:01
[2018-12-19] MEDS: RINGERS SOLUTION,LACTATED 1,000 ML IV PRN ×2 (03:23→21:58)
[2018-12-19] MEDS: HEPARIN SOD (PORCINE) 5,000 UNIT/ML 1 ML SYRINGE SUBCUT SCH (05:13)
[2018-12-19 07:35] LABS: BLOOD UREA NITROGEN 24 mg/dL (7-20); CALCIUM 8.2 mg/dL (8.4-10.2); GLUCOSE 114 mg/dL (75-110)
[2018-12-19 07:40] LABS: HEMATOCRIT 22.7 % (36.0-47.0); MEAN CORPUSCULAR HEMOGLOBIN 31.3 pg (27.0-33.4); MEAN CORPUSCULAR HGB CONC 33.6 g/dL (32.0-36.0); MEAN CORPUSCULAR VOLUME 93 fl (80-97); PLATELET COUNT 213 10^3/uL (150-450); RED BLOOD COUNT 2.45 10^6/uL (3.72-5.28); RED CELL DISTRIBUTION WIDTH 15.5 % (11.5-14.0); WHITE BLOOD COUNT 8.2 10^3/uL (4.0-10.5)
[2018-12-19 07:41] LABS: CARBON DIOXIDE 27 mmol/L (22-30); CHLORIDE 111 mmol/L (98-107); SODIUM 140.8 mmol/L (137-145)
[2018-12-19 07:45] LABS: ANION GAP 3 (5-19)
[2018-12-19 07:46] LABS: HEMOGLOBIN 7.6 g/dL (12.0-15.5)
[2018-12-19] MEDS ORDERED: FENTANYL CITRATE INJ/PF 100 MCG/2 ML AMPUL ONE (07:49)
[2018-12-19] MEDS ORDERED: LIDOCAINE 2% INJ-PF (20 MG/ML) 10 ML AMPUL ONE (07:49)
[2018-12-19] MEDS ORDERED: MIDAZOLAM 2 MG/2 ML INJ ONE (07:49)
[2018-12-19] MEDS ORDERED: BUPIVACAINE HCL/DEX-WATER/PF 15 MG/2 ML AMPULE ONE ×2 (07:50→10:23)
[2018-12-19] MEDS ORDERED: PROPOFOL INJ 200 MG/20 ML VIAL IV ONE (07:50)
[2018-12-19 07:52] LABS: FREE T3 3.84 pg/mL (2.77-5.27); FREE T4 (FREE THYROXINE) 1.6 ng/dL (0.78-2.19)
[2018-12-19 08:06] LABS: THYROID STIMULATING HORMONE 5.4 uIU/mL (0.47-4.68)
[2018-12-19] MEDS ORDERED: CEFAZOLIN INJ 1 GM VIAL ONE (08:38)
[2018-12-19] MEDS ORDERED: EPHEDRINE SULFATE INJ 50 MG/1 ML AMPULE ONE (08:40)
[2018-12-19] MEDS: IPRATROPIUM BROMIDE 0.02% NEB 0.5 MG/2.5 ML AMPUL NEB SCH ×2 (09:13→15:42)
[2018-12-19] MEDS: LEVALBUTEROL HCL NEB 1.25 MG/3 ML AMPUL NEB SCH ×2 (09:13→15:42)
[2018-12-19] MEDS: BUDESONIDE NEB 0.5 MG/2 ML AMPUL NEB SCH ×2 (09:13→19:08)
[2018-12-19] MEDS ORDERED: PROMETHAZINE HCL INJ 25 MG/1 ML VIAL IV PRN ×2 (09:44)
[2018-12-19] MEDS ORDERED: OXYCODONE-ACETAMINOPHEN 5-325 MG TABLET PO PRN ×2 (09:44)
[2018-12-19] MEDS ORDERED: DIPHENHYDRAMINE HCL 50 MG/ML VIAL IV PRN (09:44)
[2018-12-19] MEDS ORDERED: FENTANYL CITRATE INJ/PF 100 MCG/2 ML AMPUL IV PRN ×3 (09:44)
[2018-12-19] MEDS ORDERED: ONDANSETRON HCL INJ/PF 4 MG/2 ML SDV IV PRN (09:44)
[2018-12-19] MEDS ORDERED: (PENDING PHARMACY ID) (Folic Acid [Folic Acid] 0.8 MG) PO SCH (10:00)
[2018-12-19] MEDS ORDERED: (PENDING PHARMACY ID) (Donepezil Hcl [Aricept] 10 MG) PO SCH (10:00)
[2018-12-19] MEDS ORDERED: (PENDING PHARMACY ID) (Memantine Hcl [Namenda Xr] 28 MG) PO SCH (10:00)
[2018-12-19] MEDS ORDERED: (PENDING PHARMACY ID) (Calcium Carbonate/Vitamin D3 [Calcium 600 + Vit D Tablet] 1 TAB) PO SCH (10:00)
--- NOTE | 2018-12-19 10:21 | Operative Report ---
Operative Report DATE OF SURGERY: 12/19/18 PREOPERATIVE DIAGNOSIS: Displaced left intertrochanteric hip fracture POSTOPERATIVE DIAGNOSIS: Same OPERATION: Cephalo-medullary nailing of left intertrochanteric hip fracture SURGEON: CINDY MCMAHON ANESTHESIA: GA TISSUE REMOVED OR ALTERED: None COMPLICATIONS: None ESTIMATED BLOOD LOSS: 50 mL INTRAOPERATIVE FINDINGS: As above PROCEDURE: Patient was seen and evaluated in the preoperative holding area. The left lower extremity was initialized and marked. Patient received 2 g Ancef IV for bacterial prophylaxis. Patient was taken back to the operative room where transferred operative table. Patient was placed under spinal anesthesia. Once adequate anesthetized he was carefully placed onto the hip positioner the nonoperative lower extremity and bilateral upper extremities were carefully padded and the peroneal nerve was padded and on the nonoperative extremity. The operative extremity was placed in a traction along with adduction and internal rotation. A surgical team debriefing was performed ensuring all instrumentation was available, the surgical procedure was discussed with possible concerns reviewed. A timeout was done identifying correct patient, procedure and extremity everyone in attendance agree with this and verbalized no concerns. Reduction maneuver with the use of the hip traction table were done and C-arm fluoroscopy was used to confirm optimal reduction of the intertrochanteric fracture. Once this was confirmed the lower extremity was prepped with chlor prep and draped in a sterile fashion. At this point a small skin incision was made proximal to the greater trochanter. The guidewire was placed onto the tip of the trochanter advanced down to the level of the lesser trochanter. AP and lateral fluoroscopy was used to confirm appropriate placement of the guidewire. The skin incision was then extended and the underlying fascia opened up carefully to the tip of the greater trochanter. The entry reamer was then used and advanced to the level of the lesser trochanter. At this point Barnes short gamma nail was opened up and placed onto the aiming arm and advanced down the shaft of the femur. AP and lateral fluoroscopy was then used to confirm appropriate placement of the nail. Then turned my attention to the compression screw fixation in the femoral head. The trochars were advanced to the skin, a skin incision was made, careful dissection down to the fascia to the lateral femoral cortex was then partaken. The guidewire was then used and placed in the center center position with the tip apex distance less than 25 mm. Once this position was obtained the size of the compression screw was measured. AP and lateral fluoroscopy used to confirm appropriate placement of our guide wire. The step reamer was used to drill up through the femoral neck and head. I then carefully advanced the compression screw into position. AP and lateral fluoroscopy was done to confirm appropriate placement of the compression screw this was then locked into position proximally. The compression screw was then disengaged from its mounting device and the guidewire was removed. Lastly proceeded with locking of the nail distally. Using the aiming arm the trochars were advanced to the skin, a skin incision was made. Careful dissection done with a hemostat to the lateral cortex of the femur. I then drilled the near and far cortices. Measured the appropriate sized distal locking screw and secured it into position. At this point AP/lateral and oblique views of the proximal and distal aspect of the nail were taken confirming appropriate placement of the compression screw, distal locking screw and intramedullary nail. Once this was confirmed I proceeded with copious irrigation of the proximal and distal wounds. The deep tissues were closed with 0 Vicryl suture, subcutaneous tissues were closed with 2-0 Vicryl suture. The skin was closed with brennan. A dressing was placed. Sponge counts, instrument counts and needle counts were correct. Patient was then transferred from the operating room table to the operating room stretcher. The was no intraoperative complications patient tolerated procedure well was stable to PACU. Implants used: Barnes 11 x 180 mm 125 Short Gamma Nail with a 85 mm compression screw Postoperative plan: Patient will begin physical therapy on postop day #1 with Xarelto daily.
[2018-12-19] MEDS ORDERED: MAG HYDROX/AL HYDROX/SIMETH SUSP 30 ML UDCUP PO PRN (10:28)
[2018-12-19] MEDS: DONEPEZIL HCL 5 MG TABLET PO SCH (11:37)
[2018-12-19] MEDS: FAMOTIDINE INJ/PF 20 MG/2 ML SDV IV SCH ×2 (11:38→21:53)
[2018-12-19] MEDS: FERROUS SULFATE 325 MG TABLET PO SCH (11:38)
[2018-12-19] MEDS: CALCIUM CARBONATE 250 MG/VITAMIN D3 125 UNIT TABLET PO SCH (11:38)
[2018-12-19] MEDS: LOSARTAN POTASSIUM 50 MG TABLET PO SCH (11:38)
[2018-12-19] MEDS: FOLIC ACID 1 MG TABLET PO SCH (11:38)
[2018-12-19] MEDS: ASPIRIN 81 MG TABLET, ENT COATED PO SCH (11:38)
[2018-12-19] MEDS: FLUOXETINE HCL 20 MG CAPSULE PO SCH (11:39)
[2018-12-19] MEDS: MULTIVITAMIN TABLET PO SCH (11:39)
[2018-12-19] MEDS: CYANOCOBALAMIN (VITAMIN B-12) 1,000 MCG TABLET PO SCH (11:39)
[2018-12-19] MEDS: ENOXAPARIN SODIUM INJ 30 MG/0.3 ML DISP.SYRIN SUBCUT SCH (12:03)
[2018-12-19] MEDS ORDERED: CEFAZOLIN 2 GM/D5W RTU 2 GM/50 ML RTUPB IV SCH (13:00)
[2018-12-19] MEDS: CEFAZOLIN SODIUM 2 GM in DEXTROSE 5%-WATER 100 ML IV SCH ×2 (13:08→18:27)
[2018-12-19] MEDS ORDERED: FUROSEMIDE INJ/PF 20 MG/2 ML SDV IV ONE (13:11)
[2018-12-19] MEDS: MORPHINE SULFATE 10 MG/ML INJ IV PRN ×2 (13:44→21:57)
[2018-12-19] MEDS: SALMETEROL XINAFOATE DISKUS 50 MCG/1 DOSE 28 DOSE IH SCH (16:21)
[2018-12-19] MEDS: TIOTROPIUM BROMIDE DPI 5 CAP/KIT (18 MCG/CAP) IH SCH (16:21)
--- NOTE | 2018-12-19 17:42 | RADIOLOGY REPORT (SQ) ---
EXAM DESCRIPTION: NO CHG FLUORO; HIP IN OPERATING RM COMPLETED DATE/TIME: 12/19/2018 3:28 pm; 12/19/2018 3:29 pm REASON FOR STUDY: LEFT HIP FRACTURE / GAMMA NAIL COMPARISON: None. FLUOROSCOPY TIME: 0.6 minutes 4 images saved to PACS. TECHNIQUE: Intra-operative images acquired during surgical procedure to evaluate progress. NUMBER OF IMAGES: 4 LIMITATIONS: None. FINDINGS: IM wendi and traversing PiN with reduction of the intertrochanteric fracture. IMPRESSION: IMAGE(S) OBTAINED DURING PROCEDURE. COMMENT: Quality ID 145: Final reports for procedures using fluoroscopy that document radiation exp osure indices, or exposure time and number of fluorographic images (if radiation exposure indices are not available) Please consult full operative report of the attending physician for description of the procedure. TECHNICAL DOCUMENTATION: JOB ID: [id number] [employer]- All Rights Reserved Reading location - IP/workstation name: [email or web address]
--- NOTE | 2018-12-19 17:42 | RADIOLOGY REPORT (SQ) ---
EXAM DESCRIPTION: NO CHG FLUORO; HIP IN OPERATING RM COMPLETED DATE/TIME: 12/19/2018 3:28 pm; 12/19/2018 3:29 pm REASON FOR STUDY: LEFT HIP FRACTURE / GAMMA NAIL COMPARISON: None. FLUOROSCOPY TIME: 0.6 minutes 4 images saved to PACS. TECHNIQUE: Intra-operative images acquired during surgical procedure to evaluate progress. NUMBER OF IMAGES: 4 LIMITATIONS: None. FINDINGS: IM wendi and traversing PiN with reduction of the intertrochanteric fracture. IMPRESSION: IMAGE(S) OBTAINED DURING PROCEDURE. COMMENT: Quality ID 145: Final reports for procedures using fluoroscopy that document radiation exp osure indices, or exposure time and number of fluorographic images (if radiation exposure indices are not available) Please consult full operative report of the attending physician for description of the procedure. TECHNICAL DOCUMENTATION: JOB ID: [id number] [employer]- All Rights Reserved Reading location - IP/workstation name: [email or web address]
[2018-12-19] MEDS: SENNOSIDES/DOCUSATE 8.6-50 MG 1 EACH TABLET PO SCH (18:27)
--- NOTE | 2018-12-19 18:32 | RADIOLOGY REPORT (SQ) ---
EXAM DESCRIPTION: CHEST SINGLE VIEW COMPLETED DATE/TIME: 12/19/2018 6:21 pm REASON FOR STUDY: hypoxia. eval for PNA COMPARISON: 12/18/2018 EXAM PARAMETERS: NUMBER OF VIEWS: One view. TECHNIQUE: Single frontal radiographic view of the chest acquired. RADIATION DOSE: NA LIMITATIONS: None. FINDINGS: LUNGS AND PLEURA: Interval development of dense opacity at the left base with small effusi on. Likely left lower lobe atelectasis. Right lung is clear. MEDIASTINUM AND HILAR STRUCTURES: No masses. Contour normal. HEART AND VASCULAR STRUCTURES: Heart normal in size. Normal vasculature. BONES: No acute findings. HARDWARE: None in the chest. OTHER: No other significant finding. IMPRESSION: Interval development of dense opacity at the left base with small left effusion and elev ated left hemidiaphragm. Likely left lower lobe atelectasis from possible mucous plug. TECHNICAL DOCUMENTATION: JOB ID: [id number] [employer]- All Rights Reserved Reading location - IP/workstation name: [email or web address]
[2018-12-19] MEDS: ALBUTEROL SULFATE 0.083% NEB 2.5 MG/3 ML AMPUL NEB PRN (19:08)
--- NOTE | 2018-12-19 19:19 | PDOC PROGRESS REPORT ---
Subjective Progress Note for:: 12/19/18 Subjective:: Patient is a 78-year-old female with past medical history of Alzheimer's dementia, hypertension, chronic kidney disease, presents after a fall of unclear mechanism. The patient was admitted for a L hip fracture. No other notable injuries. POD#0 Cephalo-medullary nailing of left intertrochanteric hip fracture. The patient's Hgb dropped to 7.6 this morning (preoperatively), no obvious source of bleeding. Patient has a history of iron deficiency anemia. She received 2 U PRBC intraoperatively. Post-transfusion CBC pending. During the post-op assessment, the patient is resting in bed with family at the bedside. The patient is requiring 4-6LNC to maintain SPO2>88%. Today, she has been coughing up thick, yellow mucous. CXR pending. Her lung sounds are clear but she is having trouble clearing upper airway secretions. Plan to initiate empiric antibiotics given her history of COPD. The patient complains of intermittent R sided chest pain. She has experienced this pain multiple times since her hospitalization. The pain is reproducible with palpation. Repeat EKG obtained and shows NSR. Reason For Visit: STATUS POST NAILING OF LEFT HIP FRACTURE Physical Exam Vital Signs: Temp Pulse Resp BP Pulse Ox 98.1 F 81 16 122/41 L 97 12/19/18 16:45 12/19/18 18:00 12/19/18 18:00 12/19/18 18:00 12/19/18 18:00 Intake & Output 12/18/18 12/19/18 12/20/18 06:59 06:59 06:59 Intake Total 1000 2250 Output Total 150 780 Balance 850 1470 Weight 45.9 kg 45.9 kg General appearance: PRESENT: no acute distress, thin Head exam: PRESENT: atraumatic Eye exam: PRESENT: conjunctiva pink, PERRLA Mouth exam: PRESENT: dry mucosa Teeth exam: PRESENT: poor dentation Respiratory exam: PRESENT: clear to auscultation raeann, symmetrical, unlabored, other - upper airway secretions Cardiovascular exam: PRESENT: +S1, +S2 Pulses: PRESENT: normal radial pulses, normal dorsalis pedis pul Vascular exam: PRESENT: normal capillary refill GI/Abdominal exam: PRESENT: soft. ABSENT: distended, tenderness Rectal exam: PRESENT: deferred Extremities exam: ABSENT: full ROM - partial RO of LLE, pedal edema Musculoskeletal exam: ABSENT: ambulatory, full ROM Neurological exam: PRESENT: alert, awake, oriented to person Skin exam: PRESENT: dry, intact Results Laboratory Results: 12/19/18 06:59 12/19/18 06:59 12/18/18 12/19/18 12/19/18 00:07 06:59 06:59 WBC 8.2 RBC 2.45 L Hgb 7.6 L D Hct 22.7 L MCV 93 MCH 31.3 MCHC 33.6 RDW 15.5 H Plt Count 213 Sodium 140.8 Potassium 5.0 Chloride 111 H Carbon Dioxide 27 Anion Gap 3 L BUN 24 H Creatinine 1.58 H Est GFR ( Amer) 38 L Est GFR (Non-Af Amer) 32 L Glucose 114 H Calcium 8.2 L Magnesium 2.1 TSH Free T4 Free T3 pg/mL Blood Type B POSITIVE Antibody Screen NEGATIVE 12/19/18 06:59 WBC RBC Hgb Hct MCV MCH MCHC RDW Plt Count Sodium Potassium Chloride Carbon Dioxide Anion Gap BUN Creatinine Est GFR ( Amer) Est GFR (Non-Af Amer) Glucose Calcium Magnesium TSH 5.40 H Free T4 1.60 Free T3 pg/mL 3.84 Blood Type Antibody Screen 12/18/18 00:07 Troponin I < 0.012 Impressions: Cervical Spine CT 12/18/18 01:44 IMPRESSION: Negative for acute C-spine abnormality. Multilevel degenerative change. Left sphenoid sinusitis. Emphysematous changes.. TECHNICAL DOCUMENTATION: Quality ID # 436: Final reports with documentation of one or more dose reduction techniques (e.g., Automated exposure control, adjustment of the mA and/or kV according to patient size, use of iterative reconstruction technique) copyright 2011 [employer]- All Rights Reserved Head CT 12/18/18 01:44 IMPRESSION: No acute intracranial abnormalities. Hand X-Ray 12/18/18 01:48 IMPRESSION: No acute osseous abnormalities. copyright 2010 [employer] All Rights Reserved Wrist X-Ray 12/18/18 01:48 IMPRESSION: No acute osseous abnormalities. copyright 2010 [employer] All Rights Reserved Fluoroscopy 12/19/18 00:00 IMPRESSION: IMAGE(S) OBTAINED DURING PROCEDURE. Hip X-Ray 12/19/18 00:00 IMPRESSION: IMAGE(S) OBTAINED DURING PROCEDURE. Chest X-Ray 12/19/18 17:06 IMPRESSION: Interval development of dense opacity at the left base with small left effusion and elevated left hemidiaphragm. Likely left lower lobe atelectasis from possible mucous plug. Status: Imported from PACS Assessment & Plan - Diagnosis (1) Closed intertrochanteric fracture of left femur Qualifiers: Encounter type: initial encounter Fracture alignment: displaced Qualified Code(s): S72.142A - Displaced intertrochanteric fracture of left femur, initial encounter for closed fracture Is this a current diagnosis for this admission?: Yes Plan: Management per Ortho OR today for Cephalo-medullary nailing of left intertrochanteric hip fracture Plan for acute rehab following [facility] (2) Chronic obstructive pulmonary disease Qualifiers: COPD type: unspecified COPD Qualified Code(s): J44.9 - Chronic obstructive pulmonary disease, unspecified Is this a current diagnosis for this admission?: Yes Plan: CXR shows chronic emphasematous changes Patient coughing up yellow mucous this morning and increasing O2 requirements Initiate empiric antibiotic coverage for COPD patient in light of her new symptoms Supplemental O2 to maintain SPO2>88% PRN Nebulizers Scheduled Pulicort, Spiriva, serevent (3) Dementia Qualifiers: Dementia type: Alzheimer's disease Dementia behavioral disturbance: without behavioral disturbance Is this a current diagnosis for this admission?: Yes Plan: Home dose aricept and Namenda Currently, the patient lives at home alone. Family expressed concern about her ability to take care of herself. State that she frequently forgets to take her medications. Will consult discharge planning - Patient is going to Acute Rehab or SNF following discharge from [facility]. Discuss need for intermediate school teacher care. (4) Hypertension Qualifiers: Hypertension type: essential hypertension Qualified Code(s): I10 - Essential (primary) hypertension Is this a current diagnosis for this admission?: Yes Plan: Home dose losartan (5) Chest pain Qualifiers: Chest pain type: unspecified Qualified Code(s): R07.9 - Chest pain, unspecified Is this a current diagnosis for this admission?: Yes Plan: Patient persistently complains of R sided chest pain EKG shows NSR. Cardiac enzymes normal. Pain reproducible with palpation - likely musculoskeletal Continue cardiac telemetry PRN tylenol, morphine, percocet for pain control (6) Anemia Qualifiers: Anemia type: iron deficiency Is this a current diagnosis for this admission?: Yes Plan: Hgb 7.6 this morning No clear source of bleeding Patient has a history of iron deficiency anemia Plan for 2U PRBC today - follow up CBC - Time Time Spent with patient: 15-24 minutes Medications reviewed and adjusted accordingly: Yes Anticipated discharge: SNF, Acute Rehab - Inpatient Certification Based on my medical assessment, after consideration of the patient's comorbidities, presenting symptoms, or acuity I expect that the services needed warrant INPATIENT care.: Yes I certify that my determination is in accordance with my understanding of Medicare's requirements for reasonable and necessary INPATIENT services [42 CFR 412.3e].: Yes Medical Necessity: Risk of Complication if Not Cared For in Hospital - Plan Summary Plan Summary: TRANSFUSE 2 U PRBC. EMPIRIC ABX.
[2018-12-19 20:25] LABS: ABSOLUTE LYMPHOCYTES (AUTO) 0.7 10^3/uL (0.5-4.7); ABSOLUTE MONOCYTES (AUTO) 1.1 10^3/uL (0.1-1.4); BASOPHILS % (AUTO) 0.4 % (0-2); EOSINOPHILS % (AUTO) 0.4 % (0-6); HEMATOCRIT 33.3 % (36.0-47.0); LYMPHOCYTES % (AUTO) 6.7 % (13-45); MEAN CORPUSCULAR HGB CONC 35.1 g/dL (32.0-36.0); MONOCYTES % (AUTO) 11.1 % (3-13); PLATELET COUNT 200 10^3/uL (150-450); RED BLOOD COUNT 3.77 10^6/uL (3.72-5.28); RED CELL DISTRIBUTION WIDTH 16.3 % (11.5-14.0); SEGMENTED NEUTROPHILS % (AUTO) 81.4 % (42-78); TOTAL CELLS COUNTED % (AUTO) 100 %; WHITE BLOOD COUNT 9.8 10^3/uL (4.0-10.5)
[2018-12-19 20:27] LABS: HEMOGLOBIN 11.7 g/dL (12.0-15.5)
[2018-12-19 20:28] LABS: MEAN CORPUSCULAR VOLUME 88 fl (80-97)
--- NOTE | 2018-12-19 21:38 | EKG REPORT ---
SEVERITY:- ABNORMAL ECG - SINUS RHYTHM PROBABLE ANTEROSEPTAL INFARCT, AGE INDETERM BORDERLINE T ABNORMALITIES, INFERIOR LEADS : Confirmed by: Julianna Saucedo MD 19-Dec-2018 21:37:41
[2018-12-20] MEDS: LEVALBUTEROL HCL NEB 1.25 MG/3 ML AMPUL NEB SCH ×4 (00:51→23:05)
[2018-12-20] MEDS: IPRATROPIUM BROMIDE 0.02% NEB 0.5 MG/2.5 ML AMPUL NEB SCH ×4 (00:51→23:05)
[2018-12-20] MEDS: CEFAZOLIN SODIUM 2 GM in DEXTROSE 5%-WATER 100 ML IV SCH ×4 (03:00→17:20)
[2018-12-20 04:49] LABS: HEMATOCRIT 30.2 % (36.0-47.0); HEMOGLOBIN 10.7 g/dL (12.0-15.5); MEAN CORPUSCULAR HGB CONC 35.3 g/dL (32.0-36.0); MEAN CORPUSCULAR VOLUME 88 fl (80-97); PLATELET COUNT 180 10^3/uL (150-450); RED BLOOD COUNT 3.44 10^6/uL (3.72-5.28); RED CELL DISTRIBUTION WIDTH 16.7 % (11.5-14.0); WHITE BLOOD COUNT 8.8 10^3/uL (4.0-10.5)
[2018-12-20 05:18] LABS: BLOOD UREA NITROGEN 25 mg/dL (7-20); CARBON DIOXIDE 26 mmol/L (22-30); CHLORIDE 108 mmol/L (98-107); GLUCOSE 137 mg/dL (75-110); POTASSIUM 4.2 mmol/L (3.6-5.0); SODIUM 138.4 mmol/L (137-145)
[2018-12-20 05:28] LABS: CREATINE KINASE MB 2.59 ng/mL (<4.55)
[2018-12-20 05:29] LABS: TROPONIN I < 0.012 ng/mL
[2018-12-20 05:44] LABS: ANION GAP 4 (5-19)
[2018-12-20] MEDS: MORPHINE SULFATE 10 MG/ML INJ IV PRN ×3 (06:30→16:52)
[2018-12-20] MEDS: RINGERS SOLUTION,LACTATED 1,000 ML IV PRN ×2 (06:46→19:55)
[2018-12-20] MEDS: BUDESONIDE NEB 0.5 MG/2 ML AMPUL NEB SCH ×2 (07:34→19:03)
[2018-12-20] MEDS ORDERED: POTASSIUM CHLORIDE 10 MEQ CAPSULE.ER PO ONE (08:05)
[2018-12-20] MEDS ORDERED: POTASSI CL 20 MEQ/50 ML RIDER 20 MEQ/50 ML RTUPB IV SCH (08:15)
[2018-12-20] MEDS ORDERED: ENOXAPARIN SODIUM INJ 40 MG/0.4 ML DISP.SYRIN SUBCUT SCH (10:00)
[2018-12-20] MEDS: FAMOTIDINE INJ/PF 20 MG/2 ML SDV IV SCH ×2 (10:16→22:28)
[2018-12-20] MEDS: DONEPEZIL HCL 5 MG TABLET PO SCH (10:16)
[2018-12-20] MEDS: FOLIC ACID 1 MG TABLET PO SCH (10:17)
[2018-12-20] MEDS: CYANOCOBALAMIN (VITAMIN B-12) 1,000 MCG TABLET PO SCH (10:17)
[2018-12-20] MEDS: SENNOSIDES/DOCUSATE 8.6-50 MG 1 EACH TABLET PO SCH ×2 (10:17→17:20)
[2018-12-20] MEDS: ASPIRIN 81 MG TABLET, ENT COATED PO SCH (10:17)
[2018-12-20] MEDS: LOSARTAN POTASSIUM 50 MG TABLET PO SCH (10:17)
[2018-12-20] MEDS: MULTIVITAMIN TABLET PO SCH (10:17)
[2018-12-20] MEDS: FERROUS SULFATE 325 MG TABLET PO SCH (10:17)
[2018-12-20] MEDS: CALCIUM CARBONATE 250 MG/VITAMIN D3 125 UNIT TABLET PO SCH (10:17)
[2018-12-20] MEDS: FLUOXETINE HCL 20 MG CAPSULE PO SCH (10:17)
[2018-12-20] MEDS: PRENATAL VITAMIN W DHA CAPSULE PO SCH (10:17)
[2018-12-20] MEDS: SALMETEROL XINAFOATE DISKUS 50 MCG/1 DOSE 28 DOSE IH SCH ×2 (10:18→22:28)
[2018-12-20] MEDS: ENOXAPARIN SODIUM INJ 30 MG/0.3 ML DISP.SYRIN SUBCUT SCH (10:18)
[2018-12-20] MEDS: TIOTROPIUM BROMIDE DPI 5 CAP/KIT (18 MCG/CAP) IH SCH (10:18)
[2018-12-20 10:41] LABS: ABSOLUTE RETICS # 0.074 10^6/uL (0.028-0.122); RETICULOCYTE COUNT (AUTO) 2.02 % (0.66-2.85)
[2018-12-20 12:22] LABS: FOLATE > 20.00 ng/mL (>2.76); IRON(TIBC) < 10.1 ug/dL (37-170)
[2018-12-20 15:07] LABS: HEMATOCRIT 31.5 % (36.0-47.0); MEAN CORPUSCULAR HEMOGLOBIN 30.7 pg (27.0-33.4); MEAN CORPUSCULAR VOLUME 88 fl (80-97); PLATELET COUNT 192 10^3/uL (150-450); RED BLOOD COUNT 3.59 10^6/uL (3.72-5.28); RED CELL DISTRIBUTION WIDTH 16.4 % (11.5-14.0); WHITE BLOOD COUNT 9.2 10^3/uL (4.0-10.5)
--- NOTE | 2018-12-20 15:18 | PDOC PROGRESS REPORT ---
Subjective Progress Note for:: 12/20/18 Subjective:: Patient resting comfortably in bed. No issues overnight. Therapy will start to get out of bed today. Reason For Visit: STATUS POST NAILING OF LEFT HIP FRACTURE Physical Exam Vital Signs: Temp Pulse Resp BP Pulse Ox 36.9 C 82 17 120/43 L 89 L 12/20/18 12:32 12/20/18 12:32 12/20/18 12:32 12/20/18 12:32 12/20/18 12:32 Intake & Output 12/19/18 12/20/18 12/21/18 06:59 06:59 06:59 Intake Total 1000 3680 200 Output Total 150 1280 100 Balance 850 2400 100 Weight 45.9 kg 45.9 kg Adult Front & Back Image: 1 - Dressing is dry clean and intact. Soft calves and negative Homans sign with neurovascular status status intact distally Results Laboratory Results: 12/20/18 14:58 12/20/18 04:36 12/18/18 12/19/18 12/20/18 00:07 20:00 04:36 WBC 9.8 8.8 RBC 3.77 3.44 L Hgb 11.7 L D 10.7 L Hct 33.3 L 30.2 L MCV 88 D 88 MCH 31.0 31.0 MCHC 35.1 35.3 RDW 16.3 H 16.7 H Plt Count 200 180 Seg Neutrophils % 81.4 H Lymphocytes % 6.7 L Monocytes % 11.1 Eosinophils % 0.4 Basophils % 0.4 Absolute Neutrophils 8.0 Absolute Lymphocytes 0.7 Absolute Monocytes 1.1 Absolute Eosinophils 0.0 Absolute Basophils 0.0 Retic Count (auto) Absolute Retic Sodium Potassium Chloride Carbon Dioxide Anion Gap BUN Creatinine Est GFR ( Amer) Est GFR (Non-Af Amer) Glucose Calcium Magnesium Iron TIBC % Saturation Ferritin Vitamin B12 Folate Blood Type B POSITIVE Antibody Screen NEGATIVE 12/20/18 12/20/18 12/20/18 04:36 09:58 09:58 WBC RBC Hgb Hct MCV MCH MCHC RDW Plt Count Seg Neutrophils % Lymphocytes % Monocytes % Eosinophils % Basophils % Absolute Neutrophils Absolute Lymphocytes Absolute Monocytes Absolute Eosinophils Absolute Basophils Retic Count (auto) 2.02 Absolute Retic 0.074 Sodium 138.4 Potassium 4.2 Chloride 108 H Carbon Dioxide 26 Anion Gap 4 L BUN 25 H Creatinine 1.39 H Est GFR ( Amer) 44 L Est GFR (Non-Af Amer) 37 L Glucose 137 H Calcium 8.0 L Magnesium 1.9 Iron < 10.1 L TIBC 249 L % Saturation UNABLE TO CALCULATE Ferritin 99.10 Vitamin B12 > 1000.0 H Folate > 20.00 Blood Type Antibody Screen 12/20/18 14:58 WBC 9.2 RBC 3.59 L Hgb 11.0 L Hct 31.5 L MCV 88 MCH 30.7 MCHC 35.0 RDW 16.4 H Plt Count 192 Seg Neutrophils % Lymphocytes % Monocytes % Eosinophils % Basophils % Absolute Neutrophils Absolute Lymphocytes Absolute Monocytes Absolute Eosinophils Absolute Basophils Retic Count (auto) Absolute Retic Sodium Potassium Chloride Carbon Dioxide Anion Gap BUN Creatinine Est GFR ( Amer) Est GFR (Non-Af Amer) Glucose Calcium Magnesium Iron TIBC % Saturation Ferritin Vitamin B12 Folate Blood Type Antibody Screen 12/18/18 12/20/18 00:07 04:36 CK-MB (CK-2) 2.59 Troponin I < 0.012 < 0.012 Impressions: Cervical Spine CT 12/18/18 01:44 IMPRESSION: Negative for acute C-spine abnormality. Multilevel degenerative change. Left sphenoid sinusitis. Emphysematous changes.. TECHNICAL DOCUMENTATION: Quality ID # 436: Final reports with documentation of one or more dose reduction techniques (e.g., Automated exposure control, adjustment of the mA and/or kV according to patient size, use of iterative reconstruction technique) copyright 2011 [employer]- All Rights Reserved Head CT 12/18/18 01:44 IMPRESSION: No acute intracranial abnormalities. Hand X-Ray 12/18/18 01:48 IMPRESSION: No acute osseous abnormalities. copyright 2011 [employer]- All Rights Reserved Wrist X-Ray 12/18/18 01:48 IMPRESSION: No acute osseous abnormalities. copyright 2011 [employer]- All Rights Reserved Fluoroscopy 12/19/18 00:00 IMPRESSION: IMAGE(S) OBTAINED DURING PROCEDURE. Hip X-Ray 12/19/18 00:00 IMPRESSION: IMAGE(S) OBTAINED DURING PROCEDURE. Chest X-Ray 12/19/18 17:06 IMPRESSION: Interval development of dense opacity at the left base with small left effusion and elevated left hemidiaphragm. Likely left lower lobe atelectasis from possible mucous plug. Assessment & Plan - Plan Summary Plan Summary: Patient is 78 POD #1 from nailing of left intertrochanteric hip fracture Continue physical therapy Continue pain control Continue DVT prophylaxis Awaiting shelter facility placement
--- NOTE | 2018-12-20 16:26 | PDOC PROGRESS REPORT ---
Subjective Progress Note for:: 12/20/18 Subjective:: Patient is a 78-year-old female with past medical history of Alzheimer's dementia, hypertension, chronic kidney disease, presents after a fall of unclear mechanism. The patient was admitted for a L hip fracture. No other notable injuries. POD#1 Cephalo-medullary nailing of left intertrochanteric hip fracture. The patient is resting in bed. She is requiring 4-6LNC to maintain SPO2>88%. The patient appears to be managing her upper airway secretions. Her lung sounds are clear. CXR yesterday only shows chronic emphysematous changes. Following her transfusion yesterday, the patient's hemoglobin has stabilized 10- 11. Plan for PT/OT. Patient will require acute rehab placement. Reason For Visit: STATUS POST NAILING OF LEFT HIP FRACTURE Physical Exam Vital Signs: Temp Pulse Resp BP Pulse Ox 98.4 F 83 19 120/43 L 95 12/20/18 12:32 12/20/18 15:30 12/20/18 15:30 12/20/18 12:32 12/20/18 15:30 Intake & Output 12/19/18 12/20/18 12/21/18 06:59 06:59 06:59 Intake Total 1000 3680 200 Output Total 150 1280 100 Balance 850 2400 100 Weight 45.9 kg 45.9 kg General appearance: PRESENT: thin Head exam: PRESENT: atraumatic Eye exam: PRESENT: conjunctiva pink, PERRLA Mouth exam: PRESENT: moist, tongue midline Teeth exam: PRESENT: poor dentation Neck exam: PRESENT: full ROM Respiratory exam: PRESENT: clear to auscultation raeann, symmetrical, unlabored Cardiovascular exam: PRESENT: +S1, +S2 Pulses: PRESENT: normal radial pulses, normal dorsalis pedis pul GI/Abdominal exam: PRESENT: normal bowel sounds, soft. ABSENT: tenderness Rectal exam: PRESENT: deferred Extremities exam: ABSENT: full ROM - LIMITED ROM OF LLE, pedal edema Musculoskeletal exam: PRESENT: full ROM. ABSENT: ambulatory Neurological exam: PRESENT: awake, oriented to person, oriented to situation. ABSENT: oriented to place, oriented to time Skin exam: PRESENT: dry, intact, pallor Results Laboratory Results: 12/20/18 14:58 12/20/18 04:36 12/18/18 12/19/18 12/20/18 00:07 20:00 04:36 WBC 9.8 8.8 RBC 3.77 3.44 L Hgb 11.7 L D 10.7 L Hct 33.3 L 30.2 L MCV 88 D 88 MCH 31.0 31.0 MCHC 35.1 35.3 RDW 16.3 H 16.7 H Plt Count 200 180 Seg Neutrophils % 81.4 H Lymphocytes % 6.7 L Monocytes % 11.1 Eosinophils % 0.4 Basophils % 0.4 Absolute Neutrophils 8.0 Absolute Lymphocytes 0.7 Absolute Monocytes 1.1 Absolute Eosinophils 0.0 Absolute Basophils 0.0 Retic Count (auto) Absolute Retic Sodium Potassium Chloride Carbon Dioxide Anion Gap BUN Creatinine Est GFR ( Amer) Est GFR (Non-Af Amer) Glucose Calcium Magnesium Iron TIBC % Saturation Ferritin Vitamin B12 Folate Blood Type B POSITIVE Antibody Screen NEGATIVE 12/20/18 12/20/18 12/20/18 04:36 09:58 09:58 WBC RBC Hgb Hct MCV MCH MCHC RDW Plt Count Seg Neutrophils % Lymphocytes % Monocytes % Eosinophils % Basophils % Absolute Neutrophils Absolute Lymphocytes Absolute Monocytes Absolute Eosinophils Absolute Basophils Retic Count (auto) 2.02 Absolute Retic 0.074 Sodium 138.4 Potassium 4.2 Chloride 108 H Carbon Dioxide 26 Anion Gap 4 L BUN 25 H Creatinine 1.39 H Est GFR ( Amer) 44 L Est GFR (Non-Af Amer) 37 L Glucose 137 H Calcium 8.0 L Magnesium 1.9 Iron < 10.1 L TIBC 249 L % Saturation UNABLE TO CALCULATE Ferritin 99.10 Vitamin B12 > 1000.0 H Folate > 20.00 Blood Type Antibody Screen 12/20/18 14:58 WBC 9.2 RBC 3.59 L Hgb 11.0 L Hct 31.5 L MCV 88 MCH 30.7 MCHC 35.0 RDW 16.4 H Plt Count 192 Seg Neutrophils % Lymphocytes % Monocytes % Eosinophils % Basophils % Absolute Neutrophils Absolute Lymphocytes Absolute Monocytes Absolute Eosinophils Absolute Basophils Retic Count (auto) Absolute Retic Sodium Potassium Chloride Carbon Dioxide Anion Gap BUN Creatinine Est GFR ( Amer) Est GFR (Non-Af Amer) Glucose Calcium Magnesium Iron TIBC % Saturation Ferritin Vitamin B12 Folate Blood Type Antibody Screen 12/18/18 12/20/18 00:07 04:36 CK-MB (CK-2) 2.59 Troponin I < 0.012 < 0.012 Impressions: Cervical Spine CT 12/18/18 01:44 IMPRESSION: Negative for acute C-spine abnormality. Multilevel degenerative change. Left sphenoid sinusitis. Emphysematous changes.. TECHNICAL DOCUMENTATION: Quality ID # 436: Final reports with documentation of one or more dose reduction techniques (e.g., Automated exposure control, adjustment of the mA and/or kV according to patient size, use of iterative reconstruction technique) copyright 2010 [employer]- All Rights Reserved Head CT 12/18/18 01:44 IMPRESSION: No acute intracranial abnormalities. Hand X-Ray 12/18/18 01:48 IMPRESSION: No acute osseous abnormalities. copyright 2010 [employer]- All Rights Reserved Wrist X-Ray 12/18/18 01:48 IMPRESSION: No acute osseous abnormalities. copyright 2010 [employer]- All Rights Reserved Fluoroscopy 12/19/18 00:00 IMPRESSION: IMAGE(S) OBTAINED DURING PROCEDURE. Hip X-Ray 12/19/18 00:00 IMPRESSION: IMAGE(S) OBTAINED DURING PROCEDURE. Chest X-Ray 12/19/18 17:06 IMPRESSION: Interval development of dense opacity at the left base with small left effusion and elevated left hemidiaphragm. Likely left lower lobe atelectasis from possible mucous plug. Status: Imported from PACS Assessment & Plan - Diagnosis (1) Closed intertrochanteric fracture of left femur Qualifiers: Encounter type: initial encounter Fracture alignment: displaced Qualified Code(s): S72.142A - Displaced intertrochanteric fracture of left femur, initial encounter for closed fracture Is this a current diagnosis for this admission?: Yes Plan: Management per Ortho POD#1 Cephalo-medullary nailing of left intertrochanteric hip fracture Plan for acute rehab following H PT/OT (2) Chronic obstructive pulmonary disease Qualifiers: COPD type: unspecified COPD Qualified Code(s): J44.9 - Chronic obstructive pulmonary disease, unspecified Is this a current diagnosis for this admission?: Yes Plan: CXR shows chronic emphasematous changes Patient was coughing up yellow mucous, this has since resolved [employer] antibiotic coverage for COPD patient in light of her new symptoms Supplemental O2 to maintain SPO2>88% PRN Nebulizers Scheduled Pulicort, Spiriva, serevent (3) Dementia Qualifiers: Dementia type: Alzheimer's disease Dementia behavioral disturbance: without behavioral disturbance Is this a current diagnosis for this admission?: Yes Plan: Home dose aricept and Namenda Currently, the patient lives at home alone. Family expressed concern about her ability to take care of herself. State that she frequently forgets to take her medications. Will consult discharge planning - Patient is going to Acute Rehab or SNF following discharge from [facility]. Discuss need for terminal gauger care. Case management aware. (4) Hypertension Qualifiers: Hypertension type: essential hypertension Qualified Code(s): I10 - Essential (primary) hypertension Is this a current diagnosis for this admission?: Yes Plan: Home dose losartan (5) Chest pain Qualifiers: Chest pain type: unspecified Qualified Code(s): R07.9 - Chest pain, unspecified Is this a current diagnosis for this admission?: Yes Plan: Patient persistently complains of R sided chest pain EKG shows NSR. Cardiac enzymes normal. Pain reproducible with palpation - likely musculoskeletal Continue cardiac telemetry PRN tylenol, morphine, percocet for pain control (6) Anemia Qualifiers: Anemia type: iron deficiency Is this a current diagnosis for this admission?: Yes Plan: Stabilized Hgb 11 today Hgb 7.6 yesterday. No clear source of bleeding. Transfuse 2 units PRBCs. Patient has a history of iron deficiency anemia Transfuse for Hgb < 8.0 Daily CBC - Time Time Spent with patient: 15-24 minutes Medications reviewed and adjusted accordingly: Yes Anticipated discharge: Acute Rehab - Inpatient Certification Based on my medical assessment, after consideration of the patient's comorbidities, presenting symptoms, or acuity I expect that the services needed warrant INPATIENT care.: Yes I certify that my determination is in accordance with my understanding of Medicare's requirements for reasonable and necessary INPATIENT services [42 CFR 412.3e].: Yes Medical Necessity: Risk of Complication if Not Cared For in Hospital
[2018-12-20] MEDS: ALBUTEROL SULFATE 0.083% NEB 2.5 MG/3 ML AMPUL NEB PRN (19:03)
[2018-12-21] MEDS: MORPHINE SULFATE 10 MG/ML INJ IV PRN ×3 (00:20→23:12)
[2018-12-21] MEDS: CEFAZOLIN SODIUM 2 GM in DEXTROSE 5%-WATER 100 ML IV SCH ×5 (00:20→23:35)
[2018-12-21] MEDS: OXYCODONE-ACETAMINOPHEN 5-325 MG TABLET PO PRN ×2 (01:16→11:10)
[2018-12-21 04:50] LABS: HEMATOCRIT 29.6 % (36.0-47.0); HEMOGLOBIN 10.2 g/dL (12.0-15.5); MEAN CORPUSCULAR HEMOGLOBIN 30.8 pg (27.0-33.4); MEAN CORPUSCULAR HGB CONC 34.4 g/dL (32.0-36.0); MEAN CORPUSCULAR VOLUME 89 fl (80-97); PLATELET COUNT 186 10^3/uL (150-450); RED BLOOD COUNT 3.31 10^6/uL (3.72-5.28); RED CELL DISTRIBUTION WIDTH 16.7 % (11.5-14.0); WHITE BLOOD COUNT 8.8 10^3/uL (4.0-10.5)
[2018-12-21 05:19] LABS: ANION GAP 7 (5-19); BLOOD UREA NITROGEN 25 mg/dL (7-20); CARBON DIOXIDE 26 mmol/L (22-30); CHLORIDE 108 mmol/L (98-107); GLUCOSE 113 mg/dL (75-110)
[2018-12-21] MEDS: IPRATROPIUM BROMIDE 0.02% NEB 0.5 MG/2.5 ML AMPUL NEB SCH ×2 (08:56→17:10)
[2018-12-21] MEDS: BUDESONIDE NEB 0.5 MG/2 ML AMPUL NEB SCH ×2 (08:56→19:54)
[2018-12-21] MEDS: LEVALBUTEROL HCL NEB 1.25 MG/3 ML AMPUL NEB SCH ×2 (08:56→17:10)
[2018-12-21] MEDS: RINGERS SOLUTION,LACTATED 1,000 ML IV PRN ×2 (10:48→23:12)
[2018-12-21] MEDS: FAMOTIDINE INJ/PF 20 MG/2 ML SDV IV SCH ×2 (10:48→21:31)
[2018-12-21] MEDS: ENOXAPARIN SODIUM INJ 30 MG/0.3 ML DISP.SYRIN SUBCUT SCH (10:49)
[2018-12-21] MEDS: TIOTROPIUM BROMIDE DPI 5 CAP/KIT (18 MCG/CAP) IH SCH (10:49)
[2018-12-21] MEDS: SALMETEROL XINAFOATE DISKUS 50 MCG/1 DOSE 28 DOSE IH SCH ×2 (10:49→21:32)
[2018-12-21] MEDS: ASPIRIN 81 MG TABLET, ENT COATED PO SCH (10:58)
[2018-12-21] MEDS: FOLIC ACID 1 MG TABLET PO SCH (10:58)
[2018-12-21] MEDS: FERROUS SULFATE 325 MG TABLET PO SCH (10:58)
[2018-12-21] MEDS: CYANOCOBALAMIN (VITAMIN B-12) 1,000 MCG TABLET PO SCH (10:58)
[2018-12-21] MEDS: DONEPEZIL HCL 5 MG TABLET PO SCH (10:58)
[2018-12-21] MEDS: LOSARTAN POTASSIUM 50 MG TABLET PO SCH (10:59)
[2018-12-21] MEDS: FLUOXETINE HCL 20 MG CAPSULE PO SCH (11:02)
[2018-12-21] MEDS: CALCIUM CARBONATE 250 MG/VITAMIN D3 125 UNIT TABLET PO SCH (11:02)
[2018-12-21] MEDS: SENNOSIDES/DOCUSATE 8.6-50 MG 1 EACH TABLET PO SCH ×2 (11:03→18:45)
[2018-12-21] MEDS: PRENATAL VITAMIN W DHA CAPSULE PO SCH (11:03)
[2018-12-21] MEDS: MULTIVITAMIN TABLET PO SCH (11:03)
--- NOTE | 2018-12-21 17:19 | PDOC PROGRESS REPORT ---
Subjective Progress Note for:: 12/21/18 Subjective:: Patient is a 78-year-old female with past medical history of Alzheimer's dementia, hypertension, chronic kidney disease, presents after a fall of unclear mechanism. The patient was admitted for a L hip fracture. No other notable injuries. POD#2 Cephalo-medullary nailing of left intertrochanteric hip fracture. The patient is resting comfortably in bed. She is requiring 4LNC to maintain SPO2>88%. Her lung sounds are clear. Anemia studies reveal significantly depleted Iron levels. Plan for Iron infusion today. Continue for PT/OT. Patient will require acute rehab placement. Reason For Visit: STATUS POST NAILING OF LEFT HIP FRACTURE Physical Exam Vital Signs: Temp Pulse Resp BP Pulse Ox 98.3 F 91 20 135/45 H 91 L 12/21/18 11:47 12/21/18 11:47 12/21/18 11:47 12/21/18 11:47 12/21/18 13:07 Intake & Output 12/20/18 12/21/18 12/22/18 06:59 06:59 06:59 Intake Total 3680 2340 737 Output Total 1280 350 0 Balance 2400 1990 737 Weight 45.9 kg 32.6 kg General appearance: PRESENT: thin Head exam: PRESENT: atraumatic Eye exam: PRESENT: conjunctiva pink, PERRLA Mouth exam: PRESENT: moist Teeth exam: PRESENT: poor dentation Neck exam: PRESENT: full ROM Respiratory exam: PRESENT: clear to auscultation raeann, symmetrical, unlabored Cardiovascular exam: PRESENT: +S1, +S2 Pulses: PRESENT: normal radial pulses, normal dorsalis pedis pul Vascular exam: PRESENT: pallor GI/Abdominal exam: PRESENT: normal bowel sounds, soft, tenderness - patient is diffusely tender Rectal exam: PRESENT: deferred Gentrourinary exam: PRESENT: other - URINARY RETENTION Extremities exam: ABSENT: full ROM - Limited R OM of the LLE Musculoskeletal exam: ABSENT: ambulatory, full ROM Neurological exam: PRESENT: alert, awake, oriented to person. ABSENT: oriented to place, oriented to time, oriented to situation Psychiatric exam: PRESENT: appropriate affect, other - DEMENTIA Skin exam: PRESENT: dry, intact, pallor, warm Results Laboratory Results: 12/21/18 03:55 12/21/18 03:55 12/18/18 12/21/18 12/21/18 00:07 03:55 03:55 WBC 8.8 RBC 3.31 L Hgb 10.2 L Hct 29.6 L MCV 89 MCH 30.8 MCHC 34.4 RDW 16.7 H Plt Count 186 Sodium 141.0 Potassium 4.0 Chloride 108 H Carbon Dioxide 26 Anion Gap 7 BUN 25 H Creatinine 1.20 Est GFR ( Amer) 53 L Est GFR (Non-Af Amer) 44 L Glucose 113 H Calcium 8.0 L Magnesium 2.1 Blood Type B POSITIVE Antibody Screen NEGATIVE 12/18/18 12/20/18 00:07 04:36 CK-MB (CK-2) 2.59 Troponin I < 0.012 < 0.012 Impressions: Cervical Spine CT 12/18/18 01:44 IMPRESSION: Negative for acute C-spine abnormality. Multilevel degenerative change. Left sphenoid sinusitis. Emphysematous changes.. TECHNICAL DOCUMENTATION: Quality ID # 436: Final reports with documentation of one or more dose reduction techniques (e.g., Automated exposure control, adjustment of the mA and/or kV according to patient size, use of iterative reconstruction technique) copyright 2011 [employer]- All Rights Reserved Head CT 12/18/18 01:44 IMPRESSION: No acute intracranial abnormalities. Hand X-Ray 12/18/18 01:48 IMPRESSION: No acute osseous abnormalities. copyright 2010 [employer]- All Rights Reserved Wrist X-Ray 12/18/18 01:48 IMPRESSION: No acute osseous abnormalities. copyright 2011 [employer]- All Rights Reserved Fluoroscopy 12/19/18 00:00 IMPRESSION: IMAGE(S) OBTAINED DURING PROCEDURE. Hip X-Ray 12/19/18 00:00 IMPRESSION: IMAGE(S) OBTAINED DURING PROCEDURE. Chest X-Ray 12/19/18 17:06 IMPRESSION: Interval development of dense opacity at the left base with small left effusion and elevated left hemidiaphragm. Likely left lower lobe atelectasis from possible mucous plug. Status: Imported from PACS Assessment & Plan - Diagnosis (1) Closed intertrochanteric fracture of left femur Qualifiers: Encounter type: initial encounter Fracture alignment: displaced Qualified Code(s): S72.142A - Displaced intertrochanteric fracture of left femur, initial encounter for closed fracture Is this a current diagnosis for this admission?: Yes (2) Chronic obstructive pulmonary disease Qualifiers: COPD type: unspecified COPD Qualified Code(s): J44.9 - Chronic obstructive pulmonary disease, unspecified Is this a current diagnosis for this admission?: Yes Plan: CXR shows chronic emphasematous changes Postoperatively, the patient was coughing up yellow mucous and O2 requirements i ncreased [employer] antibiotic coverage for COPD patient in light of her new symptoms Supplemental O2 to maintain SPO2>88% PRN Nebulizers Scheduled Pulicort, Spiriva, serevent (3) Dementia Qualifiers: Dementia type: Alzheimer's disease Dementia behavioral disturbance: without behavioral disturbance Is this a current diagnosis for this admission?: Yes Plan: Home dose aricept and Namenda Currently, the patient lives at home alone. Family expressed concern about her ability to take care of herself. State that she frequently forgets to take her medications. Will consult discharge planning - Patient is going to Acute Rehab or SNF following discharge from [facility]. Discuss need for fdc care. Case management aware. (4) Hypertension Qualifiers: Hypertension type: essential hypertension Qualified Code(s): I10 - Essential (primary) hypertension Is this a current diagnosis for this admission?: Yes Plan: Home dose losartan (5) Chest pain Qualifiers: Chest pain type: unspecified Qualified Code(s): R07.9 - Chest pain, unspecified Is this a current diagnosis for this admission?: Yes Plan: Patient persistently complains of R sided chest pain EKG shows NSR. Cardiac enzymes normal. Pain reproducible with palpation - likely musculoskeletal Continue cardiac telemetry PRN tylenol, morphine, percocet for pain control (6) Anemia Qualifiers: Anemia type: iron deficiency Is this a current diagnosis for this admission?: Yes Plan: Stabilized Hgb 7.6->11->10.2. No obvious bleeding, could be secondary to significant iron deficiency anemia Patient has a history of iron deficiency anemia Transfuse for Hgb < 8.0 Daily CBC Severely depleted iron stores. Plan for iron infusion today (7) Urinary retention Is this a current diagnosis for this admission?: Yes Plan: John catheter discontinued yesterday Patient has not voided since Bladder scan reveals >300ml retained urine Instructed nursing staff to reinsert John catheter - Time Time Spent with patient: 15-24 minutes Medications reviewed and adjusted accordingly: Yes Anticipated discharge: SNF - Inpatient Certification Based on my medical assessment, after consideration of the patient's comorbidities, presenting symptoms, or acuity I expect that the services needed warrant INPATIENT care.: Yes I certify that my determination is in accordance with my understanding of Medicare's requirements for reasonable and necessary INPATIENT services [42 CFR 412.3e].: Yes Medical Necessity: Significant Comorbidiites Make Outpatient Treatment Too Risky, Risk of Complication if Not Cared For in Hospital - Plan Summary Plan Summary: IRON INFUSION. CONSIDER HEMATOLOGY C/S IF ANEMIA DOES NOT IMPROVE. CONTINUE PT/OT. EMPIRIC ABX. PAIN CONTROL.
--- NOTE | 2018-12-21 18:22 | PDOC PROGRESS REPORT ---
Subjective Progress Note for:: 12/21/18 Subjective:: Patient on nasal cannula. Resting comfortably in bed with no acute issues Reason For Visit: STATUS POST NAILING OF LEFT HIP FRACTURE Physical Exam Vital Signs: Temp Pulse Resp BP Pulse Ox 36.8 C 72 16 135/45 H 94 12/21/18 11:47 12/21/18 17:14 12/21/18 17:14 12/21/18 11:47 12/21/18 17:14 Intake & Output 12/20/18 12/21/18 12/22/18 06:59 06:59 06:59 Intake Total 3680 2340 737 Output Total 1280 350 0 Balance 2400 1990 737 Weight 45.9 kg 32.6 kg Adult Front & Back Image: 1 - Dressing is dry clean and intact with mild drainage. Neurovascular intact distally. Soft calf with no Homans sign Results Laboratory Results: 12/21/18 03:55 12/21/18 03:55 12/18/18 12/21/18 12/21/18 00:07 03:55 03:55 WBC 8.8 RBC 3.31 L Hgb 10.2 L Hct 29.6 L MCV 89 MCH 30.8 MCHC 34.4 RDW 16.7 H Plt Count 186 Sodium 141.0 Potassium 4.0 Chloride 108 H Carbon Dioxide 26 Anion Gap 7 BUN 25 H Creatinine 1.20 Est GFR ( Amer) 53 L Est GFR (Non-Af Amer) 44 L Glucose 113 H Calcium 8.0 L Magnesium 2.1 Blood Type B POSITIVE Antibody Screen NEGATIVE 12/18/18 12/20/18 00:07 04:36 CK-MB (CK-2) 2.59 Troponin I < 0.012 < 0.012 Impressions: Cervical Spine CT 12/18/18 01:44 IMPRESSION: Negative for acute C-spine abnormality. Multilevel degenerative change. Left sphenoid sinusitis. Emphysematous changes.. TECHNICAL DOCUMENTATION: Quality ID # 436: Final reports with documentation of one or more dose reduction techniques (e.g., Automated exposure control, adjustment of the mA and/or kV according to patient size, use of iterative reconstruction technique) copyright 2010 [email or web address]- All Rights Reserved Head CT 12/18/18 01:44 IMPRESSION: No acute intracranial abnormalities. Hand X-Ray 12/18/18 01:48 IMPRESSION: No acute osseous abnormalities. copyright 2010 [email or web address]- All Rights Reserved Wrist X-Ray 12/18/18 01:48 IMPRESSION: No acute osseous abnormalities. copyright 2010 [email or web address]- All Rights Reserved Fluoroscopy 12/19/18 00:00 IMPRESSION: IMAGE(S) OBTAINED DURING PROCEDURE. Hip X-Ray 12/19/18 00:00 IMPRESSION: IMAGE(S) OBTAINED DURING PROCEDURE. Chest X-Ray 12/19/18 17:06 IMPRESSION: Interval development of dense opacity at the left base with small left effusion and elevated left hemidiaphragm. Likely left lower lobe atelect asis from possible mucous plug. Assessment & Plan - Plan Summary Plan Summary: Patient is 78 POD #2 from left intramedullary nailing of hip fracture Care per primary team. Continue physical therapy Continue pain control Continue DVT prophylaxis
[2018-12-21] MEDS ORDERED: FERUMOXYTOL 510 MG in NORMAL SALINE 100 ML IV ONE (18:30)
[2018-12-22] MEDS: IPRATROPIUM BROMIDE 0.02% NEB 0.5 MG/2.5 ML AMPUL NEB SCH ×3 (01:18→17:56)
[2018-12-22] MEDS: LEVALBUTEROL HCL NEB 1.25 MG/3 ML AMPUL NEB SCH ×3 (01:18→17:56)
[2018-12-22 05:30] LABS: HEMATOCRIT 28.3 % (36.0-47.0); HEMOGLOBIN 9.6 g/dL (12.0-15.5); MEAN CORPUSCULAR HEMOGLOBIN 30.4 pg (27.0-33.4); MEAN CORPUSCULAR VOLUME 90 fl (80-97); PLATELET COUNT 227 10^3/uL (150-450); RED BLOOD COUNT 3.16 10^6/uL (3.72-5.28); RED CELL DISTRIBUTION WIDTH 15.9 % (11.5-14.0); WHITE BLOOD COUNT 7.6 10^3/uL (4.0-10.5)
[2018-12-22] MEDS: CEFAZOLIN SODIUM 2 GM in DEXTROSE 5%-WATER 100 ML IV SCH ×4 (05:35→23:53)
[2018-12-22] MEDS: MORPHINE SULFATE 10 MG/ML INJ IV PRN (05:41)
[2018-12-22] MEDS: OXYCODONE-ACETAMINOPHEN 5-325 MG TABLET PO PRN ×2 (07:30→21:51)
[2018-12-22] MEDS: RINGERS SOLUTION,LACTATED 1,000 ML IV PRN (09:03)
[2018-12-22] MEDS: BUDESONIDE NEB 0.5 MG/2 ML AMPUL NEB SCH ×2 (09:29→19:52)
--- NOTE | 2018-12-22 10:43 | PDOC PROGRESS REPORT ---
Subjective Progress Note for:: 12/22/18 Subjective:: Patient continues to complain of pain according to nursing staff but once receiving pain medication this does improve. No other issues overnight. Reason For Visit: STATUS POST NAILING OF LEFT HIP FRACTURE Physical Exam Vital Signs: Temp Pulse Resp BP Pulse Ox 97.9 F 79 20 150/53 H 90 L 12/22/18 07:35 12/22/18 07:35 12/22/18 07:35 12/22/18 07:35 12/22/18 07:35 Intake & Output 12/21/18 12/22/18 12/23/18 06:59 06:59 06:59 Intake Total 2340 2337 985 Output Total 350 600 Balance 1990 1737 985 Weight 32.6 kg 32.6 kg Musculoskeletal exam: PRESENT: other - Left hip: Dressing clean/dry/intact no erythema or drainage. Moderate thigh swelling without change, intact plantarflexion/dorsiflexion. No sensory deficits. No calf tenderness. Results Laboratory Results: 12/22/18 05:17 12/21/18 03:55 12/18/18 12/22/18 00:07 05:17 WBC 7.6 RBC 3.16 L Hgb 9.6 L Hct 28.3 L MCV 90 MCH 30.4 MCHC 34.0 RDW 15.9 H Plt Count 227 Blood Type B POSITIVE Antibody Screen NEGATIVE 12/18/18 12/20/18 00:07 04:36 CK-MB (CK-2) 2.59 Troponin I < 0.012 < 0.012 Impressions: Cervical Spine CT 12/18/18 01:44 IMPRESSION: Negative for acute C-spine abnormality. Multilevel degenerative change. Left sphenoid sinusitis. Emphysematous changes.. TECHNICAL DOCUMENTATION: Quality ID # 436: Final reports with documentation of one or more dose reduction techniques (e.g., Automated exposure control, adjustment of the mA and/or kV according to patient size, use of iterative reconstruction technique) copyright 2011 [employer]- All Rights Reserved Head CT 12/18/18 01:44 IMPRESSION: No acute intracranial abnormalities. Hand X-Ray 12/18/18 01:48 IMPRESSION: No acute osseous abnormalities. copyright 2010 [employer]- All Rights Reserved Wrist X-Ray 12/18/18 01:48 IMPRESSION: No acute osseous abnormalities. copyright 2010 [employer]- All Rights Reserved Fluoroscopy 12/19/18 00:00 IMPRESSION: IMAGE(S) OBTAINED DURING PROCEDURE. Hip X-Ray 12/19/18 00:00 IMPRESSION: IMAGE(S) OBTAINED DURING PROCEDURE. Chest X-Ray 12/19/18 17:06 IMPRESSION: Interval development of dense opacity at the left base with small left effusion and elevated left hemidiaphragm. Likely left lower lobe atelectasis from possible mucous plug. Assessment & Plan - Diagnosis (1) Closed intertrochanteric fracture of left femur Qualifiers: Encounter type: initial encounter Fracture alignment: displaced Qualified Code(s): S72.142A - Displaced intertrochanteric fracture of left femur, initial encounter for closed fracture Is this a current diagnosis for this admission?: Yes Plan: Status post left cephalo-medullary nail intertrochanteric fracture 1. Physical therapy weightbearing as tolerated 2. Lovenox for DVT prophylaxis 3. Pain control 4. Patient will require alf facility for discharge. Orthopedically stable once bed available
[2018-12-22] MEDS: DONEPEZIL HCL 5 MG TABLET PO SCH (11:51)
[2018-12-22] MEDS: FLUOXETINE HCL 20 MG CAPSULE PO SCH (11:51)
[2018-12-22] MEDS: ASPIRIN 81 MG TABLET, ENT COATED PO SCH (11:51)
[2018-12-22] MEDS: FERROUS SULFATE 325 MG TABLET PO SCH (11:51)
[2018-12-22] MEDS: LOSARTAN POTASSIUM 50 MG TABLET PO SCH (11:52)
[2018-12-22] MEDS: FAMOTIDINE INJ/PF 20 MG/2 ML SDV IV SCH ×2 (11:52→21:52)
[2018-12-22] MEDS: MULTIVITAMIN TABLET PO SCH (11:52)
[2018-12-22] MEDS: CALCIUM CARBONATE 250 MG/VITAMIN D3 125 UNIT TABLET PO SCH (11:52)
[2018-12-22] MEDS: SENNOSIDES/DOCUSATE 8.6-50 MG 1 EACH TABLET PO SCH ×2 (11:52→17:26)
[2018-12-22] MEDS: CYANOCOBALAMIN (VITAMIN B-12) 1,000 MCG TABLET PO SCH (11:52)
[2018-12-22] MEDS: FOLIC ACID 1 MG TABLET PO SCH (11:52)
[2018-12-22] MEDS: ENOXAPARIN SODIUM INJ 30 MG/0.3 ML DISP.SYRIN SUBCUT SCH (11:53)
[2018-12-22] MEDS: PRENATAL VITAMIN W DHA CAPSULE PO SCH (11:53)
[2018-12-22] MEDS: SALMETEROL XINAFOATE DISKUS 50 MCG/1 DOSE 28 DOSE IH SCH ×2 (11:53→21:52)
[2018-12-22] MEDS: TIOTROPIUM BROMIDE DPI 5 CAP/KIT (18 MCG/CAP) IH SCH (11:53)
--- NOTE | 2018-12-22 17:47 | PDOC PROGRESS REPORT ---
Subjective Progress Note for:: 12/22/18 Subjective:: Patient is a 78-year-old female with past medical history of Alzheimer's dementia, hypertension, chronic kidney disease, presents after a fall of unclear mechanism. The patient was admitted for a L hip fracture. No other notable injuries. Now POD#3 Cephalo-medullary nailing of left intertrochanteric hip fracture. The patient was seen on morning rounds. She is found resting in bed comfortably on supplemental oxygen 4 L/min. This was decreased to 3 L/min while I was in the room; no increase in tachypnea or report of dyspnea. Nursing was asked to continue attempts at weaning oxygen as the patient is not home O2 dependent. The patient was sleeping but woke easily when I said her name. She states that she is feeling well today and has no new questions or concerns. She denies fever, chills, chest pain, palpitations, dyspnea, abdominal pain, nausea and vomiting. She has no questions or concerns at this time. No concerns per nursing. Reason For Visit: STATUS POST NAILING OF LEFT HIP FRACTURE Physical Exam Vital Signs: Temp Pulse Resp BP Pulse Ox 97.9 F 68 20 150/53 H 94 12/22/18 07:35 12/22/18 09:29 12/22/18 09:29 12/22/18 07:35 12/22/18 09:29 Intake & Output 12/21/18 12/22/18 12/23/18 06:59 06:59 06:59 Intake Total 2340 2337 1322 Output Total 350 600 300 Balance 1989 1737 1022 Weight 32.6 kg 32.6 kg General appearance: PRESENT: no acute distress, thin, well-developed Head exam: PRESENT: atraumatic, normocephalic Eye exam: PRESENT: conjunctiva pink, EOMI, PERRLA. ABSENT: scleral icterus Mouth exam: PRESENT: moist, tongue midline Teeth exam: PRESENT: poor dentation Neck exam: ABSENT: carotid bruit, JVD, lymphadenopathy, thyromegaly Respiratory exam: PRESENT: clear to auscultation raeann, symmetrical, unlabored. ABSENT: rales, rhonchi, wheezes Cardiovascular exam: PRESENT: RRR, +S1, +S2. ABSENT: diastolic murmur, rubs, systolic murmur Pulses: PRESENT: normal dorsalis pedis pul Vascular exam: PRESENT: normal capillary refill GI/Abdominal exam: PRESENT: normal bowel sounds, soft. ABSENT: distended, guarding, mass, organolmegaly, rebound, tenderness Rectal exam: PRESENT: deferred Gentrourinary exam: PRESENT: indwelling catheter Extremities exam: PRESENT: full ROM. ABSENT: calf tenderness, clubbing, pedal edema Musculoskeletal exam: PRESENT: tenderness - LLE Neurological exam: PRESENT: alert, awake, oriented to person, CN II-XII grossly intact, other - Pleasantly confused. ABSENT: oriented to place, oriented to time, oriented to situation, motor sensory deficit Psychiatric exam: PRESENT: appropriate affect, normal mood. ABSENT: homicidal ideation, suicidal ideation Skin exam: PRESENT: dry, intact, pallor, warm. ABSENT: cyanosis, rash Results Laboratory Results: 12/22/18 05:17 12/21/18 03:55 12/22/18 05:17 WBC 7.6 RBC 3.16 L Hgb 9.6 L Hct 28.3 L MCV 90 MCH 30.4 MCHC 34.0 RDW 15.9 H Plt Count 227 12/18/18 12/20/18 00:07 04:36 CK-MB (CK-2) 2.59 Troponin I < 0.012 < 0.012 Impressions: Cervical Spine CT 12/18/18 01:44 IMPRESSION: Negative for acute C-spine abnormality. Multilevel degenerative change. Left sphenoid sinusitis. Emphysematous changes.. TECHNICAL DOCUMENTATION: Quality ID # 436: Final reports with documentation of one or more dose reduction techniques (e.g., Automated exposure control, adjustment of the mA and/or kV according to patient size, use of iterative reconstruction technique) copyright 2011 [employer]- All Rights Reserved Head CT 12/18/18 01:44 IMPRESSION: No acute intracranial abnormalities. Hand X-Ray 12/18/18 01:48 IMPRESSION: No acute osseous abnormalities. copyright 2011 [employer]- All Rights Reserved Wrist X-Ray 12/18/18 01:48 IMPRESSION: No acute osseous abnormalities. copyright 2011 [employer]- All Rights Reserved Fluoroscopy 12/19/18 00:00 IMPRESSION: IMAGE(S) OBTAINED DURING PROCEDURE. Hip X-Ray 12/19/18 00:00 IMPRESSION: IMAGE(S) OBTAINED DURING PROCEDURE. Chest X-Ray 12/19/18 17:06 IMPRESSION: Interval development of dense opacity at the left base with small left effusion and elevated left hemidiaphragm. Likely left lower lobe atelectasis from possible mucous plug. Assessment & Plan - Diagnosis (1) Closed intertrochanteric fracture of left femur Qualifiers: Encounter type: initial encounter Fracture alignment: displaced Qualified Code(s): S72.142A - Displaced intertrochanteric fracture of left femur, initial encounter for closed fracture Is this a current diagnosis for this admission?: Yes Plan: Now POD # 3 left cephalo-medullary nail intertrochanteric fracture Management per orthopedics recommendations. Physical therapy per their recommendations. DVT prophylaxis per orthopedics; currently on Lovenox. Oxycodone every 4 hours as needed; have reduced breakthrough IV morphine dose today. Discharge planning is consulted; anticipate SNF at discharge. (2) Anemia Qualifiers: Anemia type: iron deficiency Is this a current diagnosis for this admission?: Yes Plan: Improved; Hgb 7.6->11->10.2--> 9.6 No obvious bleeding, could be secondary to significant iron deficiency anemia Anemia panel revealed severely depleted iron stores. The patient is now status post 2 units PRBC and iron infusion. Have discontinued maintenance IV fluids. We will repeat CBC tomorrow; if hemoglobin has stabilized, may proceed with discharged to SNF. (3) Chronic obstructive pulmonary disease Qualifiers: COPD type: unspecified COPD Qualified Code(s): J44.9 - Chronic obstructive pulmonary disease, unspecified Is this a current diagnosis for this admission?: Yes Plan: Stable; does not appear to be in acute exacerbation at this time. However, she is now requiring supplemental oxygen to maintain oxygen saturations. Postoperatively, the patient was coughing up yellow mucous and O2 requirements increased [employer] antibiotic coverage for COPD patient in light of her new symptoms Supplemental O2 to maintain SPO2>88% PRN Nebulizers Scheduled Pulicort, Spiriva, serevent Consider p.o. steroids. (4) Dementia Qualifiers: Dementia type: Alzheimer's disease Dementia behavioral disturbance: without behavioral disturbance Is this a current diagnosis for this admission?: Yes Plan: Home dose aricept and Namenda Currently, the patient lives at home alone. Family expressed concern about her ability to take care of herself. State that she frequently forgets to take her medications. Will consult discharge planning - Patient is going to Acute Rehab or SNF [facility] 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 Case management aware. (5) Hypertension Qualifiers: Hypertension type: essential hypertension Qualified Code(s): I10 - Essential (primary) hypertension Is this a current diagnosis for this admission?: Yes Plan: Blood pressures are acceptable for age. Continue home dose losartan. (6) Urinary retention Is this a current diagnosis for this admission?: Yes Plan: Postoperative urinary retention. Mcdonnell catheter has been placed. Started on Flomax. Recommend mcdonnell removal and void trial in 24-48 hours. (7) Chest pain Qualifiers: Chest pain type: unspecified Qualified Code(s): R07.9 - Chest pain, unspecified Is this a current diagnosis for this admission?: Yes Plan: Patient persistently complains of R sided chest pain EKG shows NSR. Cardiac enzymes normal. Pain reproducible with palpation - likely musculoskeletal Continue cardiac telemetry PRN tylenol, morphine, percocet for pain control
[2018-12-22] MEDS: TAMSULOSIN HCL 0.4 MG CAP.SR.24H PO SCH (18:42)
[2018-12-23] MEDS: LEVALBUTEROL HCL NEB 1.25 MG/3 ML AMPUL NEB SCH ×3 (00:51→16:36)
[2018-12-23] MEDS: IPRATROPIUM BROMIDE 0.02% NEB 0.5 MG/2.5 ML AMPUL NEB SCH ×3 (00:52→16:36)
[2018-12-23] MEDS: OXYCODONE-ACETAMINOPHEN 5-325 MG TABLET PO PRN ×4 (05:29→23:43)
[2018-12-23] MEDS: CEFAZOLIN SODIUM 2 GM in DEXTROSE 5%-WATER 100 ML IV SCH ×2 (05:30→11:43)
[2018-12-23 05:38] LABS: HEMATOCRIT 27.5 % (36.0-47.0); HEMOGLOBIN 9.4 g/dL (12.0-15.5); MEAN CORPUSCULAR HEMOGLOBIN 30.8 pg (27.0-33.4); MEAN CORPUSCULAR HGB CONC 34.1 g/dL (32.0-36.0); MEAN CORPUSCULAR VOLUME 90 fl (80-97); PLATELET COUNT 248 10^3/uL (150-450); RED BLOOD COUNT 3.05 10^6/uL (3.72-5.28); RED CELL DISTRIBUTION WIDTH 16.3 % (11.5-14.0); WHITE BLOOD COUNT 8.5 10^3/uL (4.0-10.5)
[2018-12-23] MEDS: BUDESONIDE NEB 0.5 MG/2 ML AMPUL NEB SCH ×2 (07:45→20:31)
[2018-12-23] MEDS: CALCIUM CARBONATE 250 MG/VITAMIN D3 125 UNIT TABLET PO SCH (09:21)
[2018-12-23] MEDS: ASPIRIN 81 MG TABLET, ENT COATED PO SCH (09:22)
[2018-12-23] MEDS: FLUOXETINE HCL 20 MG CAPSULE PO SCH (09:22)
[2018-12-23] MEDS: DONEPEZIL HCL 5 MG TABLET PO SCH (09:22)
[2018-12-23] MEDS: FERROUS SULFATE 325 MG TABLET PO SCH (09:22)
[2018-12-23] MEDS: LOSARTAN POTASSIUM 50 MG TABLET PO SCH (09:22)
[2018-12-23] MEDS: SENNOSIDES/DOCUSATE 8.6-50 MG 1 EACH TABLET PO SCH ×2 (09:22→17:18)
[2018-12-23] MEDS: MULTIVITAMIN TABLET PO SCH (09:22)
[2018-12-23] MEDS: FAMOTIDINE INJ/PF 20 MG/2 ML SDV IV SCH ×2 (09:22→23:42)
[2018-12-23] MEDS: CYANOCOBALAMIN (VITAMIN B-12) 1,000 MCG TABLET PO SCH (09:22)
[2018-12-23] MEDS: FOLIC ACID 1 MG TABLET PO SCH (09:22)
[2018-12-23] MEDS: ENOXAPARIN SODIUM INJ 30 MG/0.3 ML DISP.SYRIN SUBCUT SCH (09:23)
[2018-12-23] MEDS: SALMETEROL XINAFOATE DISKUS 50 MCG/1 DOSE 28 DOSE IH SCH ×2 (09:44→23:43)
[2018-12-23] MEDS: TIOTROPIUM BROMIDE DPI 5 CAP/KIT (18 MCG/CAP) IH SCH (09:44)
[2018-12-23] MEDS: PRENATAL VITAMIN W DHA CAPSULE PO SCH (10:30)
--- NOTE | 2018-12-23 12:44 | PDOC PROGRESS REPORT ---
Subjective Progress Note for:: 12/23/18 Subjective:: Patient resting comfortably in bed. No issues overnight. Reason For Visit: STATUS POST NAILING OF LEFT HIP FRACTURE Physical Exam Vital Signs: Temp Pulse Resp BP Pulse Ox 36.3 C 69 22 H 131/46 H 92 12/23/18 08:13 12/23/18 08:13 12/23/18 08:13 12/23/18 08:13 12/23/18 08:13 Intake & Output 12/22/18 12/23/18 12/24/18 06:59 06:59 06:59 Intake Total 2337 2672 200 Output Total 600 800 Balance 1737 1872 200 Weight 32.6 kg 32.6 kg General appearance: PRESENT: no acute distress Adult Front & Back Image: 1 - Dressings are dry clean and intact. Neurovascular intact distally. Results Laboratory Results: 12/23/18 04:36 12/21/18 03:55 12/23/18 04:36 WBC 8.5 RBC 3.05 L Hgb 9.4 L Hct 27.5 L MCV 90 MCH 30.8 MCHC 34.1 RDW 16.3 H Plt Count 248 12/18/18 12/20/18 00:07 04:36 CK-MB (CK-2) 2.59 Troponin I < 0.012 < 0.012 Impressions: Cervical Spine CT 12/18/18 01:44 IMPRESSION: Negative for acute C-spine abnormality. Multilevel degenerative change. Left sphenoid sinusitis. Emphysematous changes.. TECHNICAL DOCUMENTATION: Quality ID # 436: Final reports with documentation of one or more dose reduction techniques (e.g., Automated exposure control, adjustment of the mA and/or kV according to patient size, use of iterative reconstruction technique) copyright 2011 [employer]- All Rights Reserved Head CT 12/18/18 01:44 IMPRESSION: No acute intracranial abnormalities. Hand X-Ray 12/18/18 01:48 IMPRESSION: No acute osseous abnormalities. copyright 2011 [employer]- All Rights Reserved Wrist X-Ray 12/18/18 01:48 IMPRESSION: No acute osseous abnormalities. copyright 2010 [employer]- All Rights Reserved Fluoroscopy 12/19/18 00:00 IMPRESSION: IMAGE(S) OBTAINED DURING PROCEDURE. Hip X-Ray 12/19/18 00:00 IMPRESSION: IMAGE(S) OBTAINED DURING PROCEDURE. Chest X-Ray 12/19/18 17:06 IMPRESSION: Interval development of dense opacity at the left base with small left effusion and elevated left hemidiaphragm. Likely left lower lobe atelectasis from possible mucous plug. Assessment & Plan - Plan Summary Plan Summary: 78-year-old female postop day 3 from cephalo-medullary nailing of the left hip fracture. H&H has stabilized. Continue pain control DVT prophylaxis Continue therapy until discharge at [facility] facility
--- NOTE | 2018-12-23 16:53 | PDOC PROGRESS REPORT ---
Subjective Progress Note for:: 12/23/18 Subjective:: Patient is a 78-year-old female with past medical history of Alzheimer's dementia, hypertension, chronic kidney disease, presents after a fall of unclear mechanism. The patient was admitted for a L hip fracture. No other notable injuries. Now POD#3 Cephalo-medullary nailing of left intertrochanteric hip fracture. The patient was seen on afternoon rounds. She is found resting in bed comfortably on supplemental oxygen 2 L/min. The patient was sleeping but woke easily when I said her name. She states that she is feeling well today and has no new questions or concerns. She denies fever, chills, chest pain, palpitations, dyspnea, abdominal pain, nausea and vomiting. She has no questions or concerns at this time. John catheter was removed in anticipation of d/c to SNF; received call that patient had not spontaneously voided. Will monitor with bladder scans over night, straight cath as needed. 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 Reason For Visit: STATUS POST NAILING OF LEFT HIP FRACTURE Physical Exam Vital Signs: Temp Pulse Resp BP Pulse Ox 97.4 F 79 22 H 145/51 H 100 12/23/18 15:40 12/23/18 15:40 12/23/18 15:40 12/23/18 15:40 12/23/18 15:40 Intake & Output 12/22/18 12/23/18 12/24/18 06:59 06:59 06:59 Intake Total 2337 2672 200 Output Total 600 800 Balance 1737 1872 200 Weight 32.6 kg 32.6 kg General appearance: PRESENT: no acute distress, cooperative, thin, well- developed Head exam: PRESENT: atraumatic, normocephalic Eye exam: PRESENT: conjunctiva pink, EOMI, PERRLA. ABSENT: scleral icterus Mouth exam: PRESENT: moist, tongue midline Teeth exam: PRESENT: poor dentation Neck exam: ABSENT: carotid bruit, JVD, lymphadenopathy, thyromegaly Respiratory exam: PRESENT: clear to auscultation raeann, symmetrical, unlabored. ABSENT: rales, rhonchi, wheezes Cardiovascular exam: PRESENT: RRR, +S1, +S2, systolic murmur. ABSENT: diastolic murmur, rubs Pulses: PRESENT: normal dorsalis pedis pul Vascular exam: PRESENT: normal capillary refill GI/Abdominal exam: PRESENT: normal bowel sounds, soft. ABSENT: distended, guarding, mass, organolmegaly, rebound, tenderness Rectal exam: PRESENT: deferred Extremities exam: PRESENT: full ROM, tenderness - LLE. ABSENT: calf tenderness, clubbing, pedal edema Neurological exam: PRESENT: alert, awake, oriented to person, CN II-XII grossly intact, other - Pleasantly confused. ABSENT: motor sensory deficit Psychiatric exam: PRESENT: appropriate affect, normal mood. ABSENT: homicidal ideation, suicidal ideation Skin exam: PRESENT: dry, intact, warm. ABSENT: cyanosis, rash Results Laboratory Results: 12/23/18 04:36 12/21/18 03:55 12/23/18 04:36 WBC 8.5 RBC 3.05 L Hgb 9.4 L Hct 27.5 L MCV 90 MCH 30.8 MCHC 34.1 RDW 16.3 H Plt Count 248 12/18/18 12/20/18 00:07 04:36 CK-MB (CK-2) 2.59 Troponin I < 0.012 < 0.012 Impressions: Cervical Spine CT 12/18/18 01:44 IMPRESSION: Negative for acute C-spine abnormality. Multilevel degenerative change. Left sphenoid sinusitis. Emphysematous changes.. TECHNICAL DOCUMENTATION: Quality ID # 436: Final reports with documentation of one or more dose reduction techniques (e.g., Automated exposure control, adjustment of the mA and/or kV according to patient size, use of iterative reconstruction technique) copyright 2011 [employer]- All Rights Reserved Head CT 12/18/18 01:44 IMPRESSION: No acute intracranial abnormalities. Hand X-Ray 12/18/18 01:48 IMPRESSION: No acute osseous abnormalities. copyright 2010 [employer]- All Rights Reserved Wrist X-Ray 12/18/18 01:48 IMPRESSION: No acute osseous abnormalities. copyright 2010 [employer]- All Rights Reserved Fluoroscopy 12/19/18 00:00 IMPRESSION: IMAGE(S) OBTAINED DURING PROCEDURE. Hip X-Ray 12/19/18 00:00 IMPRESSION: IMAGE(S) OBTAINED DURING PROCEDURE. Chest X-Ray 12/19/18 17:06 IMPRESSION: Interval development of dense opacity at the left base with small left effusion and elevated left hemidiaphragm. Likely left lower lobe atelectasis from possible mucous plug. Assessment & Plan - Diagnosis (1) Closed intertrochanteric fracture of left femur Qualifiers: Encounter type: initial encounter Fracture alignment: displaced Qualified Code(s): S72.142A - Displaced intertrochanteric fracture of left femur, initial encounter for closed fracture Is this a current diagnosis for this admission?: Yes Plan: Now POD # 4 left cephalo-medullary nail intertrochanteric fracture Management per orthopedics recommendations. Physical therapy per their recommendations. DVT prophylaxis per orthopedics; currently on Lovenox. Oxycodone every 4 hours as needed; breakthrough IV morphine Discharge planning is consulted; anticipate SNF at discharge. (2) Anemia Qualifiers: Anemia type: iron deficiency Is this a current diagnosis for this admission?: Yes Plan: Stable; Hgb 7.6->11->10.2--> 9.6--> 9.4 No obvious bleeding, could be secondary to significant iron deficiency anemia Anemia panel revealed severely depleted iron stores. The patient is now status post 2 units PRBC and iron infusion. Have discontinued maintenance IV fluids. Continue oral multivitamin and iron supplements Recommend f/u CBC in 5-7 days. (3) Chronic obstructive pulmonary disease Qualifiers: COPD type: unspecified COPD Qualified Code(s): J44.9 - Chronic obstructive pulmonary disease, unspecified Is this a current diagnosis for this admission?: Yes Plan: Stable; does not appear to be in acute exacerbation at this time. Have weaned supplemental oxygen to 2lpm [employer] antibiotic coverage for COPD patient in light of her new symptoms Supplemental O2 to maintain SPO2>88% PRN Nebulizers Scheduled Pulicort, Spiriva, serevent Consider p.o. steroids; will hold as lung sounds are clear and cough is decreased (4) Dementia Qualifiers: Dementia type: Alzheimer's disease Dementia behavioral disturbance: without behavioral disturbance Is this a current diagnosis for this admission?: Yes Plan: Home dose aricept and Namenda Currently, the patient lives at home alone. Family expressed concern about her ability to take care of herself. State that she frequently forgets to take her medications. Will consult discharge planning - Patient is going to Acute Rehab or SNF following discharge from [facility]. Discuss need for retirement care. Case management aware. (5) Hypertension Qualifiers: Hypertension type: essential hypertension Qualified Code(s): I10 - Essential (primary) hypertension Is this a current diagnosis for this admission?: Yes Plan: Blood pressures are acceptable for age. Continue home dose losartan. (6) Urinary retention Is this a current diagnosis for this admission?: Yes Plan: Postoperative urinary retention. Started on Flomax. Bladder scan every 8 hours and straight cath for greater than 300 mL's. (7) Chest pain Qualifiers: Chest pain type: unspecified Qualified Code(s): R07.9 - Chest pain, unspecified Is this a current diagnosis for this admission?: Yes Plan: Resolved. Patient persistently complains of R sided chest pain EKG shows NSR. Cardiac enzymes normal. Pain reproducible with palpation - likely musculoskeletal PRN tylenol, morphine, percocet for pain control - Time Time Spent with patient: Less than 15 minutes Anticipated discharge: SNF Within: within 24 hours
[2018-12-23] MEDS: TAMSULOSIN HCL 0.4 MG CAP.SR.24H PO SCH (17:18)
[2018-12-24] MEDS: LEVALBUTEROL HCL NEB 1.25 MG/3 ML AMPUL NEB SCH ×4 (00:04→23:42)
[2018-12-24] MEDS: IPRATROPIUM BROMIDE 0.02% NEB 0.5 MG/2.5 ML AMPUL NEB SCH ×4 (00:04→23:42)
[2018-12-24] MEDS: MORPHINE SULFATE 10 MG/ML INJ IV PRN ×3 (03:39→16:18)
[2018-12-24] MEDS: BUDESONIDE NEB 0.5 MG/2 ML AMPUL NEB SCH ×2 (07:28→19:37)
[2018-12-24] MEDS: MULTIVITAMIN TABLET PO SCH (09:06)
[2018-12-24] MEDS: CALCIUM CARBONATE 250 MG/VITAMIN D3 125 UNIT TABLET PO SCH (09:06)
[2018-12-24] MEDS: DONEPEZIL HCL 5 MG TABLET PO SCH (09:06)
[2018-12-24] MEDS: FOLIC ACID 1 MG TABLET PO SCH (09:06)
[2018-12-24] MEDS: ASPIRIN 81 MG TABLET, ENT COATED PO SCH (09:06)
[2018-12-24] MEDS: SENNOSIDES/DOCUSATE 8.6-50 MG 1 EACH TABLET PO SCH ×2 (09:06→18:05)
[2018-12-24] MEDS: ENOXAPARIN SODIUM INJ 30 MG/0.3 ML DISP.SYRIN SUBCUT SCH (09:06)
[2018-12-24] MEDS: FERROUS SULFATE 325 MG TABLET PO SCH (09:06)
[2018-12-24] MEDS: FLUOXETINE HCL 20 MG CAPSULE PO SCH (09:07)
[2018-12-24] MEDS: LOSARTAN POTASSIUM 50 MG TABLET PO SCH (09:07)
[2018-12-24] MEDS: PRENATAL VITAMIN W DHA CAPSULE PO SCH (09:07)
[2018-12-24] MEDS: FAMOTIDINE INJ/PF 20 MG/2 ML SDV IV SCH ×2 (09:07→21:41)
[2018-12-24] MEDS: SALMETEROL XINAFOATE DISKUS 50 MCG/1 DOSE 28 DOSE IH SCH ×2 (09:08→21:42)
[2018-12-24] MEDS: CYANOCOBALAMIN (VITAMIN B-12) 1,000 MCG TABLET PO SCH (09:08)
[2018-12-24] MEDS: TIOTROPIUM BROMIDE DPI 5 CAP/KIT (18 MCG/CAP) IH SCH (09:08)
--- NOTE | 2018-12-24 12:25 | RADIOLOGY REPORT (SQ) ---
EXAM DESCRIPTION: CHEST SINGLE VIEW COMPLETED DATE/TIME: 12/24/2018 12:06 pm REASON FOR STUDY: right sided chest pain, decrease oxygenation COMPARISON: 12/19/2018 EXAM PARAMETERS: NUMBER OF VIEWS: One view. TECHNIQUE: Single frontal radiographic view of the chest acquired. RADIATION DOSE: NA LIMITATIONS: None. FINDINGS: LUNGS AND PLEURA: There is considerable retrocardiac opacification on the left. The left hemidiaphragm is not seen. A small left pleural effusion cannot be excluded. Chronic interstitial c hanges are present. MEDIASTINUM AND HILAR STRUCTURES: No masses. Contour normal. HEART AND VASCULAR STRUCTURES: Heart normal in size. Normal vasculature. BONES: No acute findings. HARDWARE: None in the chest. OTHER: No other significant finding. IMPRESSION: Chronic lung changes. Airspace disease in the left lower lobe. Pneumonia versus atelec tasis. Small left pleural effusion. TECHNICAL DOCUMENTATION: JOB ID: [id number] [employer]- All Rights Reserved Reading location - IP/workstation name: [email or web address]
[2018-12-24 13:41] LABS: ARTERIAL BLOOD BASE EXCESS 3.3 mmol/L; ARTERIAL BLOOD H2CO3 0.98 mmol/L (1.05-1.35); ARTERIAL BLOOD HCO3 25.8 mmol/L (20-24); ARTERIAL BLOOD O2 SATURATION 89.5 % (94-98); ARTERIAL BLOOD PCO2 32.5 mmHg (35-45); ARTERIAL BLOOD PH 7.52 (7.35-7.45); ARTERIAL BLOOD PO2 50.2 mmHg (80-100); ARTERIAL BLOOD TOTAL CO2 26.8 mmol/L (21-25)
[2018-12-24 13:46] LABS: ARTERIAL BLOOD FIO2 4L
[2018-12-24] MEDS: TAMSULOSIN HCL 0.4 MG CAP.SR.24H PO SCH (18:05)
--- NOTE | 2018-12-24 18:06 | RADIOLOGY REPORT (SQ) ---
EXAM DESCRIPTION: CTA CHEST COMPLETED DATE/TIME: 12/24/2018 5:48 pm REASON FOR STUDY: hypoxia, recent orthopedic surgery, ?PE COMPARISON: None. TECHNIQUE: CT scan of the chest performed using helical scanning technique with dynamic intravenous contrast injection. Images reviewed with lung, soft tissue and bone windows. Reconstructed coronal and sagittal MPR images reviewed. Additional 3 dimensional post-processing performed to develop Maximal Intensity Projection images (TN P). All images stored on PACS. All CT scanners at this facility use dose modulation, iterative reconstruction, and/or weight based d osing when appropriate to reduce radiation dose to as low as reasonably achievable (ALARA). [facility]: Dose Right [facility]: CareDose [facility]: Dose Right [facility]: Teradose 4D [facility]: Candi Controls CONTRAST TYPE AND DOSE: contrast/concentration: Isovue 350.00 mg/ml; Total Contrast Delivered: 73.0 ml; Total Saline Delivered: 75.0 ml Contrast bolus optimized for the pulmonary arteries. Not diagnostic for the aorta. RENAL FUNCTION: GFR > 60. RADIATION DOSE: CT Rad equipment meets quality standard of care and radiation dose reduction techniq ues were employed. CTDIvol: 18.8 - 20.3 mGy. DLP: 840 mGy-cm. . LIMITATIONS: None. FINDINGS: LUNGS AND PLEURA: Severe emphysema and hyperinflation. Moderate bilateral pleural effusio ns with associated atelectasis. There is a fat attenuation benign nodule of the right lower lobe (se trung 3, image 55). AORTA AND GREAT VESSELS: No aneurysm. Contrast bolus not optimized for the aorta. HEART: No pericardial effusion. Coronary artery calcifications. PULMONARY ARTERIES: No emboli visualized in the main pulmonary arteries or the segmental branches. HILAR AND MEDIASTINAL STRUCTURES: No identified masses or abnormal nodes. HARDWARE: None in the chest. UPPER ABDOMEN: No significant findings. Limited exam. THYROID AND OTHER SOFT TISSUES: No masses. No adenopathy. BONES: No acute or significant finding. 3D MIPS: Confirm above findings. OTHER: No other significant finding. IMPRESSION: 1. Negative examination pulmonary embolism. 2. Moderate bilateral pleural effusions. 3. Severe emphysema. 4. Coronary artery disease. COMMENT: Quality ID # 436: Final reports with documentation of one or more dose reduction techniques (e.g., Automated exposure control, adjustment of the mA and/or kV according to patient size, use of iterative reconstruction technique) TECHNICAL DOCUMENTATION: JOB ID: [id number] [employer]- All Rights Reserved Reading location - IP/workstation name: [email or web address]
--- NOTE | 2018-12-24 18:24 | PDOC PROGRESS REPORT ---
Subjective Progress Note for:: 12/24/18 Subjective:: Patient has been taken to CT for imaging. Requiring continuous oxygen for low sats. Reason For Visit: STATUS POST NAILING OF LEFT HIP FRACTURE Physical Exam Vital Signs: Temp Pulse Resp BP Pulse Ox 37.3 C 86 19 145/56 H 95 12/24/18 08:00 12/24/18 16:22 12/24/18 16:20 12/24/18 08:00 12/24/18 16:22 Intake & Output 12/23/18 12/24/18 12/25/18 06:59 06:59 06:59 Intake Total 2672 637 200 Output Total 800 420 Balance 1872 217 200 Weight 32.6 kg 32.6 kg Adult Front & Back Image: 1 - Some serous drainage from the incisions. Minimal ecchymosis. Swelling appropriate. Neurovascular intact distally to stimuli. Results Laboratory Results: 12/23/18 04:36 12/21/18 03:55 12/24/18 13:27 Carbonic Acid 0.98 L HCO3/H2CO3 Ratio 26:1 ABG pH 7.52 H ABG pCO2 32.5 L ABG pO2 50.2 L ABG HCO3 25.8 H ABG O2 Saturation 89.5 L ABG Base Excess 3.3 FiO2 4L 12/18/18 12/20/18 00:07 04:36 CK-MB (CK-2) 2.59 Troponin I < 0.012 < 0.012 Impressions: Cervical Spine CT 12/18/18 01:44 IMPRESSION: Negative for acute C-spine abnormality. Multilevel degenerative change. Left sphenoid sinusitis. Emphysematous changes.. TECHNICAL DOCUMENTATION: Quality ID # 436: Final reports with documentation of one or more dose reduction techniques (e.g., Automated exposure control, adjustment of the mA and/or kV according to patient size, use of iterative reconstruction technique) copyright 2011 [employer]- All Rights Reserved Head CT 12/18/18 01:44 IMPRESSION: No acute intracranial abnormalities. Hand X-Ray 12/18/18 01:48 IMPRESSION: No acute osseous abnormalities. copyright 2010 [employer]- All Rights Reserved Wrist X-Ray 12/18/18 01:48 IMPRESSION: No acute osseous abnormalities. copyright 2010 [employer]- All Rights Reserved Fluoroscopy 12/19/18 00:00 IMPRESSION: IMAGE(S) OBTAINED DURING PROCEDURE. Hip X-Ray 12/19/18 00:00 IMPRESSION: IMAGE(S) OBTAINED DURING PROCEDURE. Chest X-Ray 12/24/18 00:00 IMPRESSION: Chronic lung changes. Airspace disease in the left lower lobe. Pneumonia versus atelectasis. Small left pleural effusion. Chest/Abdomen CTA 12/24/18 00:00 IMPRESSION: 1. Negative examination pulmonary embolism. 2. Moderate bilateral pleural effusions. 3. Severe emphysema. 4. Coronary artery disease. Assessment & Plan - Plan Summary Plan Summary: 78-year-old female who is being addressed by the primary care service for the low oxygenation. Orthopedic standpoint dressings can be changed. Patient will continue weight- bear as tolerated and physical therapy once she is cleared from a medical standpoint.
--- NOTE | 2018-12-24 18:29 | PDOC PROGRESS REPORT ---
Subjective Progress Note for:: 12/24/18 Subjective:: Patient is a 78-year-old female with past medical history of Alzheimer's dementia, hypertension, chronic kidney disease, presents after a fall of unclear mechanism. The patient was admitted for a L hip fracture. No other notable injuries. Now POD#5 Cephalo-medullary nailing of left intertrochanteric hip fracture. The patient was seen on afternoon rounds. She is found resting in bed on supplemental via simple mask. Patient's nurse reported that she was found to have an oxygen saturation in the low 80s initially required 10 L/min via simple mask to improve. They have begun weaning down on oxygen; patient is noted to be tachypneic with shallow breathing. The patient is awake, A&O to self; states "I don't feel well," and "hurts everywhere" but is unable to specify further what is bothering her. SHe answers most questions "yes," even when inconsistent. Reason For Visit: STATUS POST NAILING OF LEFT HIP FRACTURE Physical Exam Vital Signs: Temp Pulse Resp BP Pulse Ox 99.1 F 86 19 145/56 H 95 12/24/18 08:00 12/24/18 16:22 12/24/18 16:20 12/24/18 08:00 12/24/18 16:22 Intake & Output 12/23/18 12/24/18 12/25/18 06:59 06:59 06:59 Intake Total 2672 637 200 Output Total 800 420 Balance 1872 217 200 Weight 32.6 kg 32.6 kg General appearance: PRESENT: mild distress, well-developed, other - Cachectic Head exam: PRESENT: atraumatic, normocephalic Eye exam: PRESENT: conjunctiva pink, EOMI, PERRLA. ABSENT: scleral icterus Ear exam: PRESENT: normal external ear exam Mouth exam: PRESENT: moist, tongue midline Teeth exam: PRESENT: poor dentation Neck exam: ABSENT: carotid bruit, JVD, lymphadenopathy, thyromegaly Respiratory exam: PRESENT: clear to auscultation raeann, symmetrical, tachypnea, other - Shallow, mouth breathing, poor inspiratory effort. ABSENT: rales, rhonchi, wheezes Cardiovascular exam: PRESENT: RRR, +S1, +S2, systolic murmur. ABSENT: diastolic murmur, rubs Pulses: PRESENT: normal dorsalis pedis pul Vascular exam: PRESENT: normal capillary refill GI/Abdominal exam: PRESENT: normal bowel sounds, soft. ABSENT: distended, guarding, mass, organolmegaly, rebound, tenderness Rectal exam: PRESENT: deferred Extremities exam: PRESENT: tenderness - Early. ABSENT: calf tenderness, clubbing, pedal edema Neurological exam: PRESENT: alert, awake, oriented to person, CN II-XII grossly intact, other - Pleasantly confused, at baseline. ABSENT: motor sensory deficit Psychiatric exam: PRESENT: appropriate affect, normal mood. ABSENT: homicidal ideation, suicidal ideation Skin exam: PRESENT: dry, intact, warm. ABSENT: cyanosis, rash Results Laboratory Results: 12/23/18 04:36 12/21/18 03:55 12/24/18 13:27 Carbonic Acid 0.98 L HCO3/H2CO3 Ratio 26:1 ABG pH 7.52 H ABG pCO2 32.5 L ABG pO2 50.2 L ABG HCO3 25.8 H ABG O2 Saturation 89.5 L ABG Base Excess 3.3 FiO2 4L 12/18/18 12/20/18 00:07 04:36 CK-MB (CK-2) 2.59 Troponin I < 0.012 < 0.012 Impressions: Cervical Spine CT 12/18/18 01:44 IMPRESSION: Negative for acute C-spine abnormality. Multilevel degenerative change. Left sphenoid sinusitis. Emphysematous changes.. TECHNICAL DOCUMENTATION: Quality ID # 436: Final reports with documentation of one or more dose reduction techniques (e.g., Automated exposure control, adjustment of the mA and/or kV according to patient size, use of iterative reconstruction technique) copyright 2011 [employer]- All Rights Reserved Head CT 12/18/18 01:44 IMPRESSION: No acute intracranial abnormalities. Hand X-Ray 12/18/18 01:48 IMPRESSION: No acute osseous abnormalities. copyright 2011 [employer]- All Rights Reserved Wrist X-Ray 12/18/18 01:48 IMPRESSION: No acute osseous abnormalities. copyright 2011 [employer]- All Rights Reserved Fluoroscopy 12/19/18 00:00 IMPRESSION: IMAGE(S) OBTAINED DURING PROCEDURE. Hip X-Ray 12/19/18 00:00 IMPRESSION: IMAGE(S) OBTAINED DURING PROCEDURE. Chest X-Ray 12/24/18 00:00 IMPRESSION: Chronic lung changes. Airspace disease in the left lower lobe. Pneumonia versus atelectasis. Small left pleural effusion. Chest/Abdomen CTA 12/24/18 00:00 IMPRESSION: 1. Negative examination pulmonary embolism. 2. Moderate bilateral pleural effusions. 3. Severe emphysema. 4. Coronary artery disease. Assessment & Plan - Diagnosis (1) Closed intertrochanteric fracture of left femur Qualifiers: Encounter type: initial encounter Fracture alignment: displaced Qualified Code(s): S72.142A - Displaced intertrochanteric fracture of left femur, initial encounter for closed fracture Is this a current diagnosis for this admission?: Yes Plan: Now POD # 5 left cephalo-medullary nail intertrochanteric fracture Management per orthopedics recommendations. Physical therapy per their recommendations. DVT prophylaxis per orthopedics; currently on Lovenox. Oxycodone every 4 hours as needed; breakthrough IV morphine Discharge planning is consulted; anticipate SNF at discharge, bed offer at [facility]. (2) Anemia Qualifiers: Anemia type: iron deficiency Is this a current diagnosis for this admission?: Yes Plan: Stable; Hgb 7.6->11->10.2--> 9.6--> 9.4 No obvious bleeding, could be secondary to significant iron deficiency anemia Anemia panel revealed severely depleted iron stores. The patient is now status post 2 units PRBC and iron infusion. Have discontinued maintenance IV fluids. Continue oral multivitamin and iron supplements Recommend f/u CBC in 5-7 days. (3) Chronic obstructive pulmonary disease Qualifiers: COPD type: unspecified COPD Qualified Code(s): J44.9 - Chronic obstructive pulmonary disease, unspecified Is this a current diagnosis for this admission?: Yes Plan: Respiratory distress today. Chest x-ray demonstrated left pleural effusion and left lower lobe consolidation. CT of the chest shows severe emphysema, bilateral moderate pleural effusions, mild bilateral atelectasis. Negative for pulmonary embolus. ABG demonstrated respiratory alkalosis with hypoxia; pH 7.52, CO2 32.5, PO2 50.2, HCO3 25.8 Supplemental O2 to maintain SPO2>88%; high flow nasal cannula Scheduled and as needed nebulizers Scheduled Pulicort, Spiriva, serevent Prednisone 60 mg daily. (4) Dementia Qualifiers: Dementia type: Alzheimer's disease Dementia behavioral disturbance: without behavioral disturbance Is this a current diagnosis for this admission?: Yes Plan: Home dose aricept and Namenda Currently, the patient lives at home alone. Family expressed concern about her ability to take care of herself. State that she frequently forgets to take her medications. Will consult discharge planning - Patient is going to Acute Rehab or SNF following discharge from [facility]. Discuss need for assisted care. Recommend palliative care follow-up. Case management aware. (5) Hypertension Qualifiers: Hypertension type: essential hypertension Qualified Code(s): I10 - Essential (primary) hypertension Is this a current diagnosis for this admission?: Yes Plan: Blood pressures are acceptable for age. Continue home dose losartan. (6) Urinary retention Is this a current diagnosis for this admission?: Yes Plan: Resolved' spontaneous voids overnight. Postoperative urinary retention. Started on Flomax. (7) Chest pain Qualifiers: Chest pain type: unspecified Qualified Code(s): R07.9 - Chest pain, unspecified Is this a current diagnosis for this admission?: Yes Plan: Resolved. Patient persistently complains of R sided chest pain EKG shows NSR. Cardiac enzymes normal. Pain reproducible with palpation - likely musculoskeletal PRN tylenol, morphine, percocet for pain control (8) Acute respiratory failure with hypoxia Is this a current diagnosis for this admission?: Yes Plan: Chest x-ray demonstrated left pleural effusion and left lower lobe consolidation. CT of the chest shows severe emphysema, bilateral moderate pleural effusions, mild bilateral atelectasis. Negative for pulmonary embolus. ABG demonstrated respiratory alkalosis with hypoxia; pH 7.52, CO2 32.5, PO2 50. 2, HCO3 25.8 Supplemental O2 to maintain SPO2>88%; high flow nasal cannula Scheduled and as needed nebulizers Scheduled Pulicort, Spiriva, serevent Prednisone 60 mg daily. Diuresed with IV furosemide. Spoke w/ nursing; instructed to discontinue IVF (had been continued KVO today) - Time Time Spent with patient: 35 or more minutes Medications reviewed and adjusted accordingly: Yes Anticipated discharge: SNF - Plan Summary Plan Summary: Patient's acute respiratory failure, evaluation, and plan reviewed with Dr. Trevino.
[2018-12-24] MEDS ORDERED: FUROSEMIDE INJ/PF 20 MG/2 ML SDV IV ONE (19:00)
[2018-12-24] MEDS: OXYCODONE-ACETAMINOPHEN 5-325 MG TABLET PO PRN (19:56)
[2018-12-24] MEDS: PREDNISONE 20 MG TABLET PO SCH (19:57)
[2018-12-25 05:37] LABS: HEMATOCRIT 29.1 % (36.0-47.0); HEMOGLOBIN 9.9 g/dL (12.0-15.5); MEAN CORPUSCULAR VOLUME 91 fl (80-97); PLATELET COUNT 381 10^3/uL (150-450); RED BLOOD COUNT 3.18 10^6/uL (3.72-5.28); RED CELL DISTRIBUTION WIDTH 16.7 % (11.5-14.0); WHITE BLOOD COUNT 9.1 10^3/uL (4.0-10.5)
[2018-12-25 05:55] LABS: ANION GAP 8 (5-19); BLOOD UREA NITROGEN 27 mg/dL (7-20); CALCIUM 8.7 mg/dL (8.4-10.2); CARBON DIOXIDE 24 mmol/L (22-30); CHLORIDE 111 mmol/L (98-107); GLUCOSE 118 mg/dL (75-110); POTASSIUM 4.5 mmol/L (3.6-5.0)
[2018-12-25] MEDS: OXYCODONE-ACETAMINOPHEN 5-325 MG TABLET PO PRN ×3 (05:55→23:00)
[2018-12-25] MEDS: BUDESONIDE NEB 0.5 MG/2 ML AMPUL NEB SCH ×2 (07:33→19:27)
[2018-12-25] MEDS: LEVALBUTEROL HCL NEB 1.25 MG/3 ML AMPUL NEB SCH ×3 (07:33→23:31)
[2018-12-25] MEDS: IPRATROPIUM BROMIDE 0.02% NEB 0.5 MG/2.5 ML AMPUL NEB SCH ×3 (07:33→23:31)
[2018-12-25] MEDS ORDERED: FUROSEMIDE INJ/PF 20 MG/2 ML SDV IV ONE (10:09)
[2018-12-25] MEDS: CALCIUM CARBONATE 250 MG/VITAMIN D3 125 UNIT TABLET PO SCH (10:21)
[2018-12-25] MEDS: DONEPEZIL HCL 5 MG TABLET PO SCH (10:22)
[2018-12-25] MEDS: PREDNISONE 20 MG TABLET PO SCH (10:22)
[2018-12-25] MEDS: PRENATAL VITAMIN W DHA CAPSULE PO SCH (10:22)
[2018-12-25] MEDS: SENNOSIDES/DOCUSATE 8.6-50 MG 1 EACH TABLET PO SCH ×2 (10:23→18:48)
[2018-12-25] MEDS: MULTIVITAMIN TABLET PO SCH (10:23)
[2018-12-25] MEDS: CYANOCOBALAMIN (VITAMIN B-12) 1,000 MCG TABLET PO SCH (10:23)
[2018-12-25] MEDS: FLUOXETINE HCL 20 MG CAPSULE PO SCH (10:23)
[2018-12-25] MEDS: LOSARTAN POTASSIUM 50 MG TABLET PO SCH (10:23)
[2018-12-25] MEDS: ENOXAPARIN SODIUM INJ 30 MG/0.3 ML DISP.SYRIN SUBCUT SCH (10:24)
[2018-12-25] MEDS: FAMOTIDINE INJ/PF 20 MG/2 ML SDV IV SCH ×2 (10:24→22:58)
[2018-12-25] MEDS: FOLIC ACID 1 MG TABLET PO SCH (10:24)
[2018-12-25] MEDS: FERROUS SULFATE 325 MG TABLET PO SCH (10:24)
[2018-12-25] MEDS: ASPIRIN 81 MG TABLET, ENT COATED PO SCH (10:24)
[2018-12-25] MEDS: SALMETEROL XINAFOATE DISKUS 50 MCG/1 DOSE 28 DOSE IH SCH ×2 (10:32→22:58)
[2018-12-25] MEDS: TIOTROPIUM BROMIDE DPI 5 CAP/KIT (18 MCG/CAP) IH SCH (10:33)
[2018-12-25 17:05] LABS: ARTERIAL BLOOD BASE EXCESS 5.5 mmol/L; ARTERIAL BLOOD H2CO3 1.05 mmol/L (1.05-1.35); ARTERIAL BLOOD HCO3 28.2 mmol/L (20-24); ARTERIAL BLOOD O2 SATURATION 95.2 % (94-98); ARTERIAL BLOOD PH 7.52 (7.35-7.45); ARTERIAL BLOOD PO2 67.1 mmHg (80-100); ARTERIAL BLOOD TOTAL CO2 29.3 mmol/L (21-25)
[2018-12-25 17:06] LABS: ARTERIAL BLOOD FIO2 52%
--- NOTE | 2018-12-25 17:34 | PDOC PROGRESS REPORT ---
Subjective Progress Note for:: 12/25/18 Subjective:: Patient is a 78-year-old female with past medical history of Alzheimer's dementia, hypertension, chronic kidney disease, presents after a fall of unclear mechanism. The patient was admitted for a L hip fracture. No other notable injuries. Now POD#6 Cephalo-medullary nailing of left intertrochanteric hip fracture. The patient was seen on morning rounds. She is found resting in bed comfortably on high flow nasal cannula with an FiO2 of 62%. The patient is awake, oriented to self today. She is conversational; asks me to help her find something cold to drink. She denies chest pain, difficulty breathing, cough, abdominal pain, nausea and vomiting. She reports slight hip pain when prompted but otherwise denies pain and states that she is feeling better today. She has no questions or concerns. No concerns per nursing. Reason For Visit: STATUS POST NAILING OF LEFT HIP FRACTURE Physical Exam Vital Signs: Temp Pulse Resp BP Pulse Ox 97.3 F 90 16 136/50 H 95 12/25/18 16:28 12/25/18 16:28 12/25/18 16:28 12/25/18 16:28 12/25/18 16:28 Pulse Oximeter Continuous Start: 12/24/18 16:20 Freq: RTQ4 Status: Active Protocol: Document 12/25/18 15:31 [facility] (Rec: 12/25/18 15:40 [facility] [id number]) Pulse Oximetry Assessment Oxygen Saturation (92-100) 94 Oxygen Flow Rate (L/min) 15 Oxygen Delivery Method Nasal Cannula Fraction of Inspired Oxygen (FIO2) 52 Equipment Usage Equipment in Use Continuous SpO2 Machine # 5 Intake & Output 12/24/18 12/25/18 12/26/18 06:59 06:59 06:59 Intake Total 637 390 250 Output Total 420 Balance 217 390 250 Weight 32.6 kg 35.4 kg General appearance: PRESENT: no acute distress, well-developed, other - Cachectic Head exam: PRESENT: atraumatic, normocephalic Eye exam: PRESENT: conjunctiva pink, EOMI, PERRLA. ABSENT: scleral icterus Ear exam: PRESENT: normal external ear exam Mouth exam: PRESENT: moist, tongue midline Teeth exam: PRESENT: poor dentation Neck exam: ABSENT: carotid bruit, JVD, lymphadenopathy, thyromegaly Respiratory exam: PRESENT: clear to auscultation raeann, symmetrical, unlabored, other - Decreased work of breathing today; high flow nasal cannula. ABSENT: rales, rhonchi, wheezes Cardiovascular exam: PRESENT: RRR, +S1, +S2. ABSENT: diastolic murmur, rubs, systolic murmur Pulses: PRESENT: normal dorsalis pedis pul Vascular exam: PRESENT: normal capillary refill GI/Abdominal exam: PRESENT: normal bowel sounds, soft. ABSENT: distended, guard ing, mass, organolmegaly, rebound, tenderness Rectal exam: PRESENT: deferred Extremities exam: PRESENT: tenderness. ABSENT: calf tenderness, clubbing, pedal edema Neurological exam: PRESENT: alert, awake, oriented to person, CN II-XII grossly intact, other - Pleasantly confused. ABSENT: motor sensory deficit Psychiatric exam: PRESENT: appropriate affect, normal mood. ABSENT: homicidal ideation, suicidal ideation Skin exam: PRESENT: dry, intact, warm. ABSENT: cyanosis, rash Results Laboratory Results: 12/25/18 05:20 12/25/18 05:20 12/25/18 12/25/18 12/25/18 05:20 05:20 16:58 WBC 9.1 RBC 3.18 L Hgb 9.9 L Hct 29.1 L MCV 91 MCH 31.0 MCHC 34.0 RDW 16.7 H Plt Count 381 Carbonic Acid 1.05 HCO3/H2CO3 Ratio 26:1 ABG pH 7.52 H ABG pCO2 35.0 ABG pO2 67.1 L ABG HCO3 28.2 H ABG O2 Saturation 95.2 ABG Base Excess 5.5 FiO2 52% Sodium 143.0 Potassium 4.5 Chloride 111 H Carbon Dioxide 24 Anion Gap 8 BUN 27 H Creatinine 1.09 Est GFR ( Amer) 59 L Est GFR (Non-Af Amer) 49 L Glucose 118 H Calcium 8.7 12/18/18 12/20/18 12/25/18 00:07 04:36 05:20 CK-MB (CK-2) 2.59 Troponin I < 0.012 < 0.012 NT-Pro-B Natriuret Pep 5590 H Impressions: Cervical Spine CT 12/18/18 01:44 IMPRESSION: Negative for acute C-spine abnormality. Multilevel degenerative change. Left sphenoid sinusitis. Emphysematous changes.. TECHNICAL DOCUMENTATION: Quality ID # 436: Final reports with documentation of one or more dose reduction techniques (e.g., Automated exposure control, adjustment of the mA and/or kV according to patient size, use of iterative reconstruction technique) copyright 2010 [employer]- All Rights Reserved Head CT 12/18/18 01:44 IMPRESSION: No acute intracranial abnormalities. Hand X-Ray 12/18/18 01:48 IMPRESSION: No acute osseous abnormalities. copyright 2010 [employer]- All Rights Reserved Wrist X-Ray 12/18/18 01:48 IMPRESSION: No acute osseous abnormalities. copyright 2010 [employer]- All Rights Reserved Fluoroscopy 12/19/18 00:00 IMPRESSION: IMAGE(S) OBTAINED DURING PROCEDURE. Hip X-Ray 12/19/18 00:00 IMPRESSION: IMAGE(S) OBTAINED DURING PROCEDURE. Chest X-Ray 12/24/18 00:00 IMPRESSION: Chronic lung changes. Airspace disease in the left lower lobe. Pneumonia versus atelectasis. Small left pleural effusion. Chest/Abdomen CTA 12/24/18 00:00 IMPRESSION: 1. Negative examination pulmonary embolism. 2. Moderate bilateral pleural effusions. 3. Severe emphysema. 4. Coronary artery disease. Assessment & Plan - Diagnosis (1) Closed intertrochanteric fracture of left femur Qualifiers: Encounter type: initial encounter Fracture alignment: displaced Qualified Code(s): S72.142A - Displaced intertrochanteric fracture of left femur, initial encounter for closed fracture Is this a current diagnosis for this admission?: Yes Plan: Now POD # 6 left cephalo-medullary nail intertrochanteric fracture Management per orthopedics recommendations. Physical therapy per their recommendations. DVT prophylaxis per orthopedics. Lovenox on hold for thoracentesis. Oxycodone every 4 hours as needed Discharge planning is consulted; anticipate SNF at discharge, bed offer at [facility]. (2) Anemia Qualifiers: Anemia type: iron deficiency Is this a current diagnosis for this admission?: Yes Plan: Stable; Hgb 7.6->11->10.2--> 9.6--> 9.4--> 9.9 Anemia panel revealed severely depleted iron stores. The patient is now status post 2 units PRBC and iron infusion. Have discontinued maintenance IV fluids. Continue oral multivitamin and iron supplements Recommend f/u CBC in 5-7 days. (3) Chronic obstructive pulmonary disease Qualifiers: COPD type: unspecified COPD Qualified Code(s): J44.9 - Chronic obstructive pulmonary disease, unspecified Is this a current diagnosis for this admission?: Yes Plan: Respiratory distress today. Chest x-ray demonstrated left pleural effusion and left lower lobe consolidation. CT of the chest shows severe emphysema, bilateral moderate pleural effusions, mild bilateral atelectasis. Negative for pulmonary embolus. ABG demonstrated respiratory alkalosis with hypoxia; pH 7.52, CO2 32.5, PO2 50.2, HCO3 25.8 Supplemental O2 to maintain SPO2>88%; high flow nasal cannula Scheduled and as needed nebulizers Scheduled Pulicort, Spiriva, serevent Prednisone 60 mg daily. (4) Dementia Qualifiers: Dementia type: Alzheimer's disease Dementia behavioral disturbance: without behavioral disturbance Is this a current diagnosis for this admission?: Yes Plan: Home dose aricept and Namenda Currently, the patient lives at home alone. Family expressed concern about her ability to take care of herself. State that she frequently forgets to take her medications. Will consult discharge planning - Patient is going to Acute Rehab or SNF following discharge from [facility]. 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 Recommend palliative care follow-up. Case management aware. (5) Hypertension Qualifiers: Hypertension type: essential hypertension Qualified Code(s): I10 - Essentia l (primary) hypertension Is this a current diagnosis for this admission?: Yes Plan: Blood pressures are acceptable for age. Continue home dose losartan. (6) Urinary retention Is this a current diagnosis for this admission?: Yes Plan: Resolved' spontaneous voids overnight. Postoperative urinary retention. Started on Flomax. (7) Chest pain Qualifiers: Chest pain type: unspecified Qualified Code(s): R07.9 - Chest pain, unspecified Is this a current diagnosis for this admission?: Yes Plan: Resolved. Patient persistently complains of R sided chest pain EKG shows NSR. Cardiac enzymes normal. Pain reproducible with palpation - likely musculoskeletal PRN tylenol, percocet for pain control (8) Acute respiratory failure with hypoxia Is this a current diagnosis for this admission?: Yes Plan: Chest x-ray demonstrated left pleural effusion and left lower lobe consolidation. CT of the chest shows severe emphysema, bilateral moderate pleural effusions, mild bilateral atelectasis. Negative for pulmonary embolus. ABG demonstrates respiratory alkalosis with hypoxia; improved today with high flow nasal cannula Supplemental O2 to maintain SPO2>88%; high flow nasal cannula Scheduled and as needed nebulizers Scheduled Pulicort, Spiriva, serevent Prednisone 60 mg daily. Diuresis with IV furosemide. Spoke with Dr. Shields today; recommended evaluating for thoracentesis. Spoke with radiology; requesting PT/INR and to hold Lovenox x 48 hrs. We will repeat chest x-ray in a.m. - Time Time Spent with patient: 15-24 minutes Medications reviewed and adjusted accordingly: Yes Anticipated discharge: SNF
[2018-12-25] MEDS: TAMSULOSIN HCL 0.4 MG CAP.SR.24H PO SCH (18:48)
[2018-12-25] MEDS: ALBUTEROL SULFATE 0.083% NEB 2.5 MG/3 ML AMPUL NEB PRN (19:27)
[2018-12-26 05:04] LABS: HEMATOCRIT 25.6 % (36.0-47.0); HEMOGLOBIN 8.6 g/dL (12.0-15.5); MEAN CORPUSCULAR HEMOGLOBIN 30.9 pg (27.0-33.4); MEAN CORPUSCULAR HGB CONC 33.7 g/dL (32.0-36.0); MEAN CORPUSCULAR VOLUME 92 fl (80-97); PLATELET COUNT 386 10^3/uL (150-450); RED CELL DISTRIBUTION WIDTH 16.2 % (11.5-14.0); WHITE BLOOD COUNT 11.2 10^3/uL (4.0-10.5)
[2018-12-26 05:25] LABS: ANION GAP 5 (5-19); BLOOD UREA NITROGEN 40 mg/dL (7-20); CALCIUM 8.7 mg/dL (8.4-10.2); CARBON DIOXIDE 27 mmol/L (22-30); CHLORIDE 113 mmol/L (98-107); GLUCOSE 111 mg/dL (75-110); POTASSIUM 3.9 mmol/L (3.6-5.0); SODIUM 144.6 mmol/L (137-145)
--- NOTE | 2018-12-26 07:20 | PDOC PROGRESS REPORT ---
Subjective Progress Note for:: 12/26/18 Reason For Visit: STATUS POST NAILING OF LEFT HIP FRACTURE 78-year-old white female now postop day 8 status post ORIF of a left intratrochanteric femur fracture. Physical Exam Vital Signs: Temp Pulse Resp BP Pulse Ox 36.9 C 77 18 136/51 H 95 12/25/18 22:51 12/25/18 23:31 12/26/18 04:00 12/25/18 22:51 12/26/18 04:00 Pulse Oximeter Continuous Start: 12/24/18 16: 20 Freq: RTQ4 Status: Active Protocol: Document 12/26/18 04:00 [facility] (Rec: 12/26/18 04:47 [facility] [id number]) Pulse Oximetry Assessment Oxygen Saturation (92-100) 95 Oxygen Flow Rate (L/min) 35 Oxygen Delivery Method Nasal Cannula Fraction of Inspired Oxygen (FIO2) 53 Equipment Usage Equipment in Use Continuous SpO2 Machine # 5 Intake & Output 12/25/18 12/26/18 12/27/18 06:59 06:59 06:59 Intake Total 390 600 Balance 390 600 Weight 35.4 kg 32.8 kg Extremities exam: PRESENT: other - Left hip dressings are clean dry and intact. Leg lengths are equal. Results Laboratory Results: 12/26/18 04:14 12/26/18 04:14 12/25/18 12/26/18 12/26/18 16:58 04:14 04:14 WBC 11.2 H RBC 2.80 L Hgb 8.6 L Hct 25.6 L MCV 92 MCH 30.9 MCHC 33.7 RDW 16.2 H Plt Count 386 Carbonic Acid 1.05 HCO3/H2CO3 Ratio 26:1 ABG pH 7.52 H ABG pCO2 35.0 ABG pO2 67.1 L ABG HCO3 28.2 H ABG O2 Saturation 95.2 ABG Base Excess 5.5 FiO2 52% Sodium 144.6 Potassium 3.9 Chloride 113 H Carbon Dioxide 27 Anion Gap 5 BUN 40 H Creatinine 1.17 Est GFR ( Amer) 54 L Est GFR (Non-Af Amer) 45 L Glucose 111 H Calcium 8.7 12/18/18 12/20/18 12/25/18 00:07 04:36 05:20 CK-MB (CK-2) 2.59 Troponin I < 0.012 < 0.012 NT-Pro-B Natriuret Pep 5590 H 12/26/18 04:14 CK-MB (CK-2) Troponin I NT-Pro-B Natriuret Pep 4820 H Impressions: Cervical Spine CT 12/18/18 01:44 IMPRESSION: Negative for acute C-spine abnormality. Multilevel degenerative change. Left sphenoid sinusitis. Emphysematous changes.. TECHNICAL DOCUMENTATION: Quality ID # 436: Final reports with documentation of one or more dose reduction techniques (e.g., Automated exposure control, adjustment of the mA and/or kV according to patient size, use of iterative reconstruction technique) copyright 2010 [employer]- All Rights Reserved Head CT 12/18/18 01:44 IMPRESSION: No acute intracranial abnormalities. Hand X-Ray 12/18/18 01:48 IMPRESSION: No acute osseous abnormalities. copyright 2010 [employer] All Rights Reserved Wrist X-Ray 12/18/18 01:48 IMPRESSION: No acute osseous abnormalities. copyright 2011 [employer]- All Rights Reserved Fluoroscopy 12/19/18 00:00 IMPRESSION: IMAGE(S) OBTAINED DURING PROCEDURE. Hip X-Ray 12/19/18 00:00 IMPRESSION: IMAGE(S) OBTAINED DURING PROCEDURE. Chest X-Ray 12/24/18 00:00 IMPRESSION: Chronic lung changes. Airspace disease in the left lower lobe. P neumonia versus atelectasis. Small left pleural effusion. Chest/Abdomen CTA 12/24/18 00:00 IMPRESSION: 1. Negative examination pulmonary embolism. 2. Moderate bilateral pleural effusions. 3. Severe emphysema. 4. Coronary artery disease. Status: Imported from PACS Assessment & Plan - Diagnosis (1) Closed intertrochanteric fracture of left femur Qualifiers: Encounter type: initial encounter Fracture alignment: displaced Qualified Code(s): S72.142A - Displaced intertrochanteric fracture of left femur, initial encounter for closed fracture Is this a current diagnosis for this admission?: Yes Plan: Mobilization as mental status allows and anticipate retirement facility placement.
[2018-12-26] MEDS: IPRATROPIUM BROMIDE 0.02% NEB 0.5 MG/2.5 ML AMPUL NEB SCH ×2 (09:12→16:40)
[2018-12-26] MEDS: BUDESONIDE NEB 0.5 MG/2 ML AMPUL NEB SCH ×2 (09:12→19:17)
[2018-12-26] MEDS: LEVALBUTEROL HCL NEB 1.25 MG/3 ML AMPUL NEB SCH ×2 (09:12→16:40)
--- NOTE | 2018-12-26 09:36 | RADIOLOGY REPORT (SQ) ---
EXAM DESCRIPTION: CHEST SINGLE VIEW COMPLETED DATE/TIME: 12/26/2018 9:16 am REASON FOR STUDY: dyspnea; eval pleural effusions COMPARISON: 12/24/2018 EXAM PARAMETERS: NUMBER OF VIEWS: One view. TECHNIQUE: Single frontal radiographic view of the chest acquired. RADIATION DOSE: NA LIMITATIONS: None. FINDINGS: LUNGS AND PLEURA: Persistent basilar opacities. Small left effusion. Slightly improved o verall. MEDIASTINUM AND HILAR STRUCTURES: No masses. Contour normal. HEART AND VASCULAR STRUCTURES: Heart normal in size. Normal vasculature. BONES: No acute findings. HARDWARE: None in the chest. OTHER: No other significant finding. IMPRESSION: Persistent basilar opacities in left effusion with slight improved aeration. TECHNICAL DOCUMENTATION: JOB ID: [id number] [employer]- All Rights Reserved Reading location - IP/workstation name: [email or web address]
[2018-12-26] MEDS: LOSARTAN POTASSIUM 50 MG TABLET PO SCH (10:11)
[2018-12-26] MEDS: DONEPEZIL HCL 5 MG TABLET PO SCH (10:11)
[2018-12-26] MEDS: CALCIUM CARBONATE 250 MG/VITAMIN D3 125 UNIT TABLET PO SCH (10:12)
[2018-12-26] MEDS: ASPIRIN 81 MG TABLET, ENT COATED PO SCH (10:12)
[2018-12-26] MEDS: FUROSEMIDE INJ/PF 20 MG/2 ML SDV IV SCH ×2 (10:12→22:16)
[2018-12-26] MEDS: FOLIC ACID 1 MG TABLET PO SCH (10:12)
[2018-12-26] MEDS: FAMOTIDINE INJ/PF 20 MG/2 ML SDV IV SCH ×2 (10:12→22:16)
[2018-12-26] MEDS: FERROUS SULFATE 325 MG TABLET PO SCH (10:12)
[2018-12-26] MEDS: PREDNISONE 20 MG TABLET PO SCH (10:12)
[2018-12-26] MEDS: PRENATAL VITAMIN W DHA CAPSULE PO SCH (10:13)
[2018-12-26] MEDS: SENNOSIDES/DOCUSATE 8.6-50 MG 1 EACH TABLET PO SCH ×2 (10:13→17:45)
[2018-12-26] MEDS: FLUOXETINE HCL 20 MG CAPSULE PO SCH (10:13)
[2018-12-26] MEDS: MULTIVITAMIN TABLET PO SCH (10:13)
[2018-12-26] MEDS: CYANOCOBALAMIN (VITAMIN B-12) 1,000 MCG TABLET PO SCH (10:13)
[2018-12-26] MEDS: TIOTROPIUM BROMIDE DPI 5 CAP/KIT (18 MCG/CAP) IH SCH (10:14)
[2018-12-26] MEDS: SALMETEROL XINAFOATE DISKUS 50 MCG/1 DOSE 28 DOSE IH SCH ×2 (10:14→22:16)
[2018-12-26] MEDS ORDERED: LIDOCAINE 5% (700 MG) TRANSDERMAL ADH..PATCH TP ONE (13:30)
[2018-12-26] MEDS: KETOROLAC TROMETHAMINE INJ/PF 30 MG/1 ML SDV IV PRN (15:18)
--- NOTE | 2018-12-26 16:29 | PDOC PROGRESS REPORT ---
Subjective Progress Note for:: 12/26/18 Subjective:: Patient is a 78-year-old female with past medical history of Alzheimer's dementia, hypertension, chronic kidney disease, presents after a fall of unclear mechanism. The patient was admitted for a L hip fracture. No other notable injuries. Now POD#6 Cephalo-medullary nailing of left intertrochanteric hip fracture. The patient was seen on morning rounds. She is found resting in bed comfortably on high flow nasal cannula with an FiO2 of 46%. The patient is awake, oriented to self today. She is conversational; tells me that she is unhappy with the frequency of her urine voids due to pain and discomfort utilizing bedpan. She also reports that she needs to have a bowel movement this morning. She denies fever, headache, chest pain, difficulty breathing, cough, abdominal pain, nausea and vomiting. Spoke with the patient's son, Narciso Mcdonald, today. Discussed her clinical progress, anticipation for discharge to SNF >48 hours, and recommendations for palliative care/hospice services. Pt's son reports that an out of state brother is the POA, but that to his knowledge, all prior living [place] has indicated that attempts at resuscitation be made; patient remains FULL CODE They have no other questions or concerns today. No concerns per nursing. Reason For Visit: STATUS POST NAILING OF LEFT HIP FRACTURE Physical Exam Vital Signs: Temp Pulse Resp BP Pulse Ox 98.3 F 73 18 147/47 H 95 12/26/18 12:00 12/26/18 12:00 12/26/18 12:40 12/26/18 12:00 12/26/18 12:40 Pulse Oximeter Continuous Start: 12/24/18 1 6:20 Freq: RTQ4 Status: Active Protocol: Document 12/26/18 12:40 [facility] (Rec: 12/26/18 12:41 [facility] [id number]) Pulse Oximetry Assessment Oxygen Saturation (92-100) 95 Oxygen Flow Rate (L/min) 35 Oxygen Delivery Method Nasal Cannula Fraction of Inspired Oxygen (FIO2) 46 Equipment Usage Equipment in Use Continuous SpO2 Machine # 5 Intake & Output 12/25/18 12/26/18 12/27/18 06:59 06:59 06:59 Intake Total 390 600 Balance 390 600 Weight 35.4 kg 32.8 kg General appearance: PRESENT: no acute distress, cooperative, well-developed, other - Cachectic Head exam: PRESENT: atraumatic, normocephalic Eye exam: PRESENT: conjunctiva pink, EOMI, PERRLA. ABSENT: scleral icterus Ear exam: PRESENT: normal external ear exam Mouth exam: PRESENT: moist, tongue midline Teeth exam: PRESENT: poor dentation Neck exam: ABSENT: carotid bruit, JVD, lymphadenopathy, thyromegaly Respiratory exam: PRESENT: clear to auscultation raeann, decreased breath sounds - Throughout; poor inspiratory effort, symmetrical, tachypnea, other - High flow nasal cannula. ABSENT: rales, rhonchi, wheezes Cardiovascular exam: PRESENT: RRR, +S1, +S2. ABSENT: diastolic murmur, rubs, systolic murmur Pulses: PRESENT: normal dorsalis pedis pul Vascular exam: PRESENT: normal capillary refill GI/Abdominal exam: PRESENT: normal bowel sounds, soft. ABSENT: distended, guarding, mass, organolmegaly, rebound, tenderness Rectal exam: PRESENT: deferred Extremities exam: PRESENT: full ROM. ABSENT: calf tenderness, clubbing, pedal edema Neurological exam: PRESENT: alert, awake, oriented to person, CN II-XII grossly intact, other - Pleasantly confused. ABSENT: motor sensory deficit Psychiatric exam: PRESENT: appropriate affect, normal mood. ABSENT: homicidal ideation, suicidal ideation Skin exam: PRESENT: dry, intact, warm. ABSENT: cyanosis, rash Results Laboratory Results: 12/26/18 04:14 12/26/18 04:14 12/25/18 12/26/18 12/26/18 16:58 04:14 04:14 WBC 11.2 H RBC 2.80 L Hgb 8.6 L Hct 25.6 L MCV 92 MCH 30.9 MCHC 33.7 RDW 16.2 H Plt Count 386 Carbonic Acid 1.05 HCO3/H2CO3 Ratio 26:1 ABG pH 7.52 H ABG pCO2 35.0 ABG pO2 67.1 L ABG HCO3 28.2 H ABG O2 Saturation 95.2 ABG Base Excess 5.5 FiO2 52% Sodium 144.6 Potassium 3.9 Chloride 113 H Carbon Dioxide 27 Anion Gap 5 BUN 40 H Creatinine 1.17 Est GFR ( Amer) 54 L Est GFR (Non-Af Amer) 45 L Glucose 111 H Calcium 8.7 12/18/18 12/20/18 12/25/18 00:07 04:36 05:20 CK-MB (CK-2) 2.59 Troponin I < 0.012 < 0.012 NT-Pro-B Natriuret Pep 5590 H 12/26/18 04:14 CK-MB (CK-2) Troponin I NT-Pro-B Natriuret Pep 4820 H Impressions: Cervical Spine CT 12/18/18 01:44 IMPRESSION: Negative for acute C-spine abnormality. Multilevel degenerative change. Left sphenoid sinusitis. Emphysematous changes.. TECHNICAL DOCUMENTATION: Quality ID # 436: Final reports with documentation of one or more dose reduction techniques (e.g., Automated exposure control, adjustment of the mA and/or kV according to patient size, use of iterative reconstruction technique) copyright 2010 [employer]- All Rights Reserved Head CT 12/18/18 01:44 IMPRESSION: No acute intracranial abnormalities. Hand X-Ray 12/18/18 01:48 IMPRESSION: No acute osseous abnormalities. copyright 2010 [employer]- All Rights Reserved Wrist X-Ray 12/18/18 01:48 IMPRESSION: No acute osseous abnormalities. copyright 2010 [employer]- All Rights Reserved Fluoroscopy 12/19/18 00:00 IMPRESSION: IMAGE(S) OBTAINED DURING PROCEDURE. Hip X-Ray 12/19/18 00:00 IMPRESSION: IMAGE(S) OBTAINED DURING PROCEDURE. Chest/Abdomen CTA 12/24/18 00:00 IMPRESSION: 1. Negative examination pulmonary embolism. 2. Moderate bilateral pleural effusions. 3. Severe emphysema. 4. Coronary artery disease. Chest X-Ray 12/26/18 00:00 IMPRESSION: Persistent basilar opacities in left effusion with slight improved aeration. Assessment & Plan - Diagnosis (1) Closed intertrochanteric fracture of left femur Qualifiers: Encounter type: initial encounter Fracture alignment: displaced Qualified Code(s): S72.142A - Displaced intertrochanteric fracture of left femur, initial encounter for closed fracture Is this a current diagnosis for this admission?: Yes Plan: Now POD # 8 left cephalo-medullary nail intertrochanteric fracture Management per orthopedics recommendations. Physical therapy per their recommendations. DVT prophylaxis per orthopedics. Lovenox on hold for possible thoracentesis. Tylenol and oxycodone every 4 hours as needed Discharge planning is consulted; anticipate SNF at discharge, bed offer at [place]. (2) Anemia Qualifiers: Anemia type: iron deficiency Is this a current diagnosis for this admission?: Yes Plan: Stable; Hgb 7.6->11->10.2--> 9.6--> 9.4--> 9.9--> 8.6 Anemia panel revealed severely depleted iron stores. The patient is now status post 2 units PRBC and iron infusion. Have discontinued maintenance IV fluids. Continue oral multivitamin and iron supplements Recommend f/u CBC in 5-7 days. (3) Chronic obstructive pulmonary disease Qualifiers: COPD type: unspecified COPD Qualified Code(s): J44.9 - Chronic obstructive pulmonary disease, unspecified Is this a current diagnosis for this admission?: Yes Plan: Improved. Chest x-ray demonstrated left pleural effusion and left lower lobe consolidation. Repeat CXR is slightly improved. CT of the chest shows severe emphysema, bilateral moderate pleural effusions, mild bilateral atelectasis. Negative for pulmonary embolus. ABG demonstrated respiratory alkalosis with hypoxia; pH 7.52, CO2 32.5, PO2 50.2, HCO3 25.8 Supplemental O2 to maintain SPO2>88%; high flow nasal cannula Scheduled and as needed nebulizers Scheduled Pulicort, Spiriva, serevent Prednisone 60 mg daily. (4) Dementia Qualifiers: Dementia type: Alzheimer's disease Dementia behavioral disturbance: without behavioral disturbance Is this a current diagnosis for this admission?: Yes Plan: Home dose aricept and Namenda Currently, the patient lives at home alone. Family expressed concern about her ability to take care of herself. State that she frequently forgets to take her medications. Will consult discharge planning - Patient is going to Acute Rehab or SNF following discharge from [facility]. 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 Recommend palliative care follow-up. Case management aware. (5) Hypertension Qualifiers: Hypertension type: essential hypertension Qualified Code(s): I10 - Essential (primary) hypertension Is this a current diagnosis for this admission?: Yes Plan: Blood pressures are acceptable for age. Continue home dose losartan. (6) Urinary retention Is this a current diagnosis for this admission?: Yes Plan: Resolved Postoperative urinary retention. Started on Flomax. (7) Chest pain Qualifiers: Chest pain type: unspecified Qualified Code(s): R07.9 - Chest pain, unspecified Is this a current diagnosis for this admission?: Yes Plan: Resolved. Patient persistently complains of R sided chest pain EKG shows NSR. Cardiac enzymes normal. Pain reproducible with palpation - likely musculoskeletal PRN tylenol, percocet for pain control (8) Acute respiratory failure with hypoxia Is this a current diagnosis for this admission?: Yes Plan: Improved. Remains on high flow nasal cannula, FiO2 has been reduced from 62-46% . No longer tachycardic, tachypneic, or hypoxic; improved patient alertness and comfort today. Chest x-ray demonstrated left pleural effusion and left lower lobe consolidation. Repeat chest x-ray shows slight improved aeration. CT of the chest shows severe emphysema, bilateral moderate pleural effusions, mild bilateral atelectasis. Negative for pulmonary embolus. ABG demonstrates respiratory alkalosis with hypoxia; improved today with high flow nasal cannula Supplemental O2 to maintain SPO2>88%; high flow nasal cannula Scheduled and as needed nebulizers Scheduled Pulicort, Spiriva, serevent Prednisone 60 mg daily. Diuresis with IV furosemide. Spoke with Dr. Shields; recommended evaluating for thoracentesis. Spoke with radiology; requesting PT/INR and to hold Lovenox x 48 hrs. (9) Full code status Is this a current diagnosis for this admission?: Yes Plan: Discussed with patient's son today; patient remains full code. Strongly recommend outpatient palliative care consultation. - Time Time Spent with patient: 35 or more minutes Medications reviewed and adjusted accordingly: Yes Anticipated discharge: SNF
[2018-12-26] MEDS: TAMSULOSIN HCL 0.4 MG CAP.SR.24H PO SCH (17:45)
[2018-12-27] MEDS: LEVALBUTEROL HCL NEB 1.25 MG/3 ML AMPUL NEB SCH ×3 (00:13→19:31)
[2018-12-27] MEDS: IPRATROPIUM BROMIDE 0.02% NEB 0.5 MG/2.5 ML AMPUL NEB SCH ×3 (00:13→19:31)
[2018-12-27] MEDS: OXYCODONE-ACETAMINOPHEN 5-325 MG TABLET PO PRN ×3 (03:49→17:46)
[2018-12-27 05:23] LABS: HEMATOCRIT 25.2 % (36.0-47.0); HEMOGLOBIN 8.6 g/dL (12.0-15.5); MEAN CORPUSCULAR HEMOGLOBIN 31.5 pg (27.0-33.4); MEAN CORPUSCULAR HGB CONC 34.2 g/dL (32.0-36.0); MEAN CORPUSCULAR VOLUME 92 fl (80-97); PLATELET COUNT 429 10^3/uL (150-450); RED BLOOD COUNT 2.73 10^6/uL (3.72-5.28); RED CELL DISTRIBUTION WIDTH 16.4 % (11.5-14.0); WHITE BLOOD COUNT 11.9 10^3/uL (4.0-10.5)
[2018-12-27 05:59] LABS: ANION GAP 6 (5-19); BLOOD UREA NITROGEN 46 mg/dL (7-20); CALCIUM 8.9 mg/dL (8.4-10.2); CARBON DIOXIDE 28 mmol/L (22-30); CHLORIDE 110 mmol/L (98-107); GLUCOSE 92 mg/dL (75-110); POTASSIUM 3.6 mmol/L (3.6-5.0); SODIUM 144.3 mmol/L (137-145)
[2018-12-27] MEDS: BUDESONIDE NEB 0.5 MG/2 ML AMPUL NEB SCH ×2 (07:42→19:31)
[2018-12-27] MEDS: SALMETEROL XINAFOATE DISKUS 50 MCG/1 DOSE 28 DOSE IH SCH ×2 (09:19→21:28)
[2018-12-27] MEDS: FAMOTIDINE INJ/PF 20 MG/2 ML SDV IV SCH ×2 (09:19→21:29)
[2018-12-27] MEDS: PREDNISONE 20 MG TABLET PO SCH (09:20)
[2018-12-27] MEDS: DONEPEZIL HCL 5 MG TABLET PO SCH (09:20)
[2018-12-27] MEDS: FERROUS SULFATE 325 MG TABLET PO SCH (09:21)
[2018-12-27] MEDS: CALCIUM CARBONATE 250 MG/VITAMIN D3 125 UNIT TABLET PO SCH (09:21)
[2018-12-27] MEDS: PRENATAL VITAMIN W DHA CAPSULE PO SCH (09:21)
[2018-12-27] MEDS: SENNOSIDES/DOCUSATE 8.6-50 MG 1 EACH TABLET PO SCH ×2 (09:22→17:46)
[2018-12-27] MEDS: CYANOCOBALAMIN (VITAMIN B-12) 1,000 MCG TABLET PO SCH (09:22)
[2018-12-27] MEDS: LOSARTAN POTASSIUM 50 MG TABLET PO SCH (09:23)
[2018-12-27] MEDS: MULTIVITAMIN TABLET PO SCH (09:23)
[2018-12-27] MEDS: ASPIRIN 81 MG TABLET, ENT COATED PO SCH (09:23)
[2018-12-27] MEDS: FOLIC ACID 1 MG TABLET PO SCH (09:23)
[2018-12-27] MEDS: FLUOXETINE HCL 20 MG CAPSULE PO SCH (09:24)
[2018-12-27] MEDS: TIOTROPIUM BROMIDE DPI 5 CAP/KIT (18 MCG/CAP) IH SCH (09:25)
[2018-12-27] MEDS ORDERED: FUROSEMIDE 20 MG TABLET PO SCH (11:00)
--- NOTE | 2018-12-27 14:29 | PDOC PROGRESS REPORT ---
Subjective Progress Note for:: 12/27/18 Subjective:: Patient is a 78-year-old female with past medical history of Alzheimer's dementia, hypertension, chronic kidney disease, presents after a fall of unclear mechanism. The patient was admitted for a L hip fracture. No other notable injuries. Now POD#6 Cephalo-medullary nailing of left intertrochanteric hip fracture. The patient was seen on morning rounds. She is found resting in bed comfortably on supplemental oxygen via nasal cannula at 3 L/min; continuous pulse ox shows oxygen saturations in the mid 90s and her heart rate in the 80s. The patient is awake, oriented to self today. She is conversational and states that she is feeling much better today. She denies fever, headache, chest pain, difficulty breathing, cough, abdominal pain, nausea and vomiting. She has no questions or concerns at this time. No concerns per nursing. Reason For Visit: STATUS POST NAILING OF LEFT HIP FRACTURE Physical Exam Vital Signs: Temp Pulse Resp BP Pulse Ox 98.7 F 79 17 146/52 H 94 12/27/18 11:27 12/27/18 11:27 12/27/18 11:27 12/27/18 11:27 12/27/18 12:00 Pulse Oximeter Continuous Start: 12/24/18 16:20 Freq: RTQ4 Status: Active Protocol: Document 12/27/18 12:00 [facility] (Rec: 12/27/18 14:17 J [id number]) Pulse Oximetry Assessment Oxygen Saturation (92-100) 94 Oxygen Flow Rate (L/min) 2 Oxygen Delivery Method Nasal Cannula Equipment Usage Equipment in Use Continuous SpO2 Machine # 5 Intake & Output 12/26/18 12/27/18 12/28/18 06:59 06:59 06:59 Intake Total 600 457 Output Total 1420 Balance 600 -963 Weight 32.8 kg 33.1 kg General appearance: PRESENT: no acute distress, cooperative, well-developed, other - Cachectic Head exam: PRESENT: atraumatic, normocephalic Eye exam: PRESENT: conjunctiva pink, EOMI, PERRLA. ABSENT: scleral icterus Ear exam: PRESENT: normal external ear exam Mouth exam: PRESENT: moist, tongue midline Teeth exam: PRESENT: poor dentation Neck exam: ABSENT: carotid bruit, JVD, lymphadenopathy, thyromegaly Respiratory exam: PRESENT: clear to auscultation raeann, decreased breath sounds - Bibasilar; improved from yesterday, symmetrical, unlabored, other - Supplemental oxygen via nasal cannula. ABSENT: rales, rhonchi, wheezes Cardiovascular exam: PRESENT: RRR. ABSENT: diastolic murmur, rubs, systolic murmur Pulses: PRESENT: normal dorsalis pedis pul Vascular exam: PRESENT: normal capillary refill GI/Abdominal exam: PRESENT: normal bowel sounds, soft. ABSENT: distended, guard ing, mass, organolmegaly, rebound, tenderness Rectal exam: PRESENT: deferred Extremities exam: PRESENT: tenderness - Left hip. ABSENT: calf tenderness, clubbing, pedal edema Neurological exam: PRESENT: alert, awake, oriented to person, CN II-XII grossly intact, other - Improved alertness today; pleasantly confused, convers ationally/socially appropriate. ABSENT: motor sensory deficit Psychiatric exam: PRESENT: appropriate affect, normal mood. ABSENT: homicidal ideation, suicidal ideation Skin exam: PRESENT: dry, intact, warm. ABSENT: cyanosis, rash Results Laboratory Results: 12/27/18 04:35 12/27/18 04:35 12/27/18 12/27/18 04:35 04:35 WBC 11.9 H RBC 2.73 L Hgb 8.6 L Hct 25.2 L MCV 92 MCH 31.5 MCHC 34.2 RDW 16.4 H Plt Count 429 Sodium 144.3 Potassium 3.6 Chloride 110 H Carbon Dioxide 28 Anion Gap 6 BUN 46 H Creatinine 1.24 Est GFR ( Amer) 51 L Est GFR (Non-Af Amer) 42 L Glucose 92 Calcium 8.9 12/18/18 12/20/18 12/25/18 00:07 04:36 05:20 CK-MB (CK-2) 2.59 Troponin I < 0.012 < 0.012 NT-Pro-B Natriuret Pep 5590 H 12/26/18 04:14 CK-MB (CK-2) Troponin I NT-Pro-B Natriuret Pep 4820 H Impressions: Cervical Spine CT 12/18/18 01:44 IMPRESSION: Negative for acute C-spine abnormality. Multilevel degenerative change. Left sphenoid sinusitis. Emphysematous changes.. TECHNICAL DOCUMENTATION: Quality ID # 436: Final reports with documentation of one or more dose reduction techniques (e.g., Automated exposure control, adjustment of the mA and/or kV according to patient size, use of iterative reconstruction technique) copyright 2010 [employer]- All Rights Reserved Head CT 12/18/18 01:44 IMPRESSION: No acute intracranial abnormalities. Hand X-Ray 12/18/18 01:48 IMPRESSION: No acute osseous abnormalities. copyright 2010 [employer]- All Rights Reserved Wrist X-Ray 12/18/18 01:48 IMPRESSION: No acute osseous abnormalities. copyright 2010 [employer]- All Rights Reserved Fluoroscopy 12/19/18 00:00 IMPRESSION: IMAGE(S) OBTAINED DURING PROCEDURE. Hip X-Ray 12/19/18 00:00 IMPRESSION: IMAGE(S) OBTAINED DURING PROCEDURE. Chest/Abdomen CTA 12/24/18 00:00 IMPRESSION: 1. Negative examination pulmonary embolism. 2. Moderate bilateral pleural effusions. 3. Severe emphysema. 4. Coronary artery disease. Chest X-Ray 12/26/18 00:00 IMPRESSION: Persistent basilar opacities in left effusion with slight improved aeration. Assessment & Plan - Diagnosis (1) Closed intertrochanteric fracture of left femur Qualifiers: Encounter type: initial encounter Fracture alignment: displaced Qualified Code(s): S72.142A - Displaced intertrochanteric fracture of left femur, initial encounter for closed fracture Is this a current diagnosis for this admission?: Yes Plan: Now POD # 9 left cephalo-medullary nail intertrochanteric fracture Management per orthopedics recommendations. Physical therapy per their recommendations. DVT prophylaxis per orthopedics. Lovenox on hold for possible thoracentesis. Tylenol and oxycodone every 4 hours as needed Discharge planning is consulted; anticipate SNF at discharge, bed offer at [facility]. (2) Anemia Qualifiers: Anemia type: iron deficiency Is this a current diagnosis for this admission?: Yes Plan: Stable; Hgb 7.6->11->10.2--> 8.6--> 8.6 Anemia panel revealed severely depleted iron stores. The patient is now status post 2 units PRBC and iron infusion. Have discontinued maintenance IV fluids. Continue oral multivitamin and iron supplements Recommend f/u CBC in 5-7 days. (3) Chronic obstructive pulmonary disease Qualifiers: COPD type: unspecified COPD Qualified Code(s): J44.9 - Chronic obstructive pulmonary disease, unspecified Is this a current diagnosis for this admission?: Yes Plan: Improved. Chest x-ray demonstrated left pleural effusion and left lower lobe consolidatio n. Repeat CXR is slightly improved. CT of the chest shows severe emphysema, bilateral moderate pleural effusions, mild bilateral atelectasis. Negative for pulmonary embolus. ABG demonstrated respiratory alkalosis with hypoxia; pH 7.52, CO2 32.5, PO2 50.2, HCO3 25.8 Supplemental O2 to maintain SPO2>88%; now one nasal cannula at 3lpm Scheduled and as needed nebulizers Scheduled Pulicort, Spiriva, serevent Prednisone 60 mg daily. (4) Dementia Qualifiers: Dementia type: Alzheimer's disease Dementia behavioral disturbance: without behavioral disturbance Is this a current diagnosis for this admission?: Yes Plan: Home dose aricept and Namenda Currently, the patient lives at home alone. Family expressed concern about her ability to take care of herself. State that she frequently forgets to take her medications. Will consult discharge planning - Patient is going to Acute Rehab or SNF following discharge from [facility]. Discuss need for alf care. Recommend palliative care follow-up. Case management aware. (5) Hypertension Qualifiers: Hypertension type: essential hypertension Qualified Code(s): I10 - Essential (primary) hypertension Is this a current diagnosis for this admission?: Yes Plan: Blood pressures are acceptable for age. Patient reports dizziness with activity; orthostatic hypotension versus debility from prolonged immobility. We will obtain orthostatic vital signs. Assess a.m. cortisol level. Continue home dose losartan. (6) Urinary retention Is this a current diagnosis for this admission?: Yes Plan: Resolved Postoperative urinary retention. Started on Flomax. (7) Chest pain Qualifiers: Chest pain type: unspecified Qualified Code(s): R07.9 - Chest pain, unspecified Is this a current diagnosis for this admission?: Yes Plan: Resolved. Patient persistently complains of R sided chest pain EKG shows NSR. Cardiac enzymes normal. Pain reproducible with palpation - likely musculoskeletal PRN tylenol, percocet for pain control (8) Acute respiratory failure with hypoxia Is this a current diagnosis for this admission?: Yes Plan: Improved. Now maintaining oxygen saturations on NC. No longer tachycardic, tachypneic, or hypoxic; improved patient alertness and comfort today. Pt is not home O2 dependant. Chest x-ray demonstrated left pleural effusion and left lower lobe consolidation. Repeat chest x-ray shows slight improved aeration. CT of the chest shows severe emphysema, bilateral moderate pleural effusions, mild bilateral atelectasis. Negative for pulmonary embolus. ABG demonstrates respiratory alkalosis with hypoxia; improved today with high flow nasal cannula Supplemental O2 to maintain SPO2>88%; nasal cannula at 3lpm. Scheduled and as needed nebulizers; have decreased frequency of scheduled nebs. Scheduled Pulicort, Spiriva, serevent Prednisone 60 mg daily. Have transitioned to p.o. furosemide Spoke with Dr. Shields; recommended evaluating for thoracentesis. Spoke with radiology; requesting PT/INR and to hold Lovenox x 48 hrs. Will repeat CXR tomorrow; do not anticipate that patient will still require interventional radiology. (9) Full code status Is this a current diagnosis for this admission?: Yes Plan: Discussed with patient's son today; patient remains full code. Strongly recommend outpatient palliative care consultation. - Time Time Spent with patient: 15-24 minutes Medications reviewed and adjusted accordingly: Yes Anticipated discharge: SNF Within: within 24 hours
[2018-12-27] MEDS: TAMSULOSIN HCL 0.4 MG CAP.SR.24H PO SCH (17:46)
[2018-12-27] MEDS: KETOROLAC TROMETHAMINE INJ/PF 30 MG/1 ML SDV IV PRN (21:29)
[2018-12-28 05:55] LABS: BLOOD UREA NITROGEN 47 mg/dL (7-20); GLUCOSE 88 mg/dL (75-110); POTASSIUM 3.4 mmol/L (3.6-5.0)
[2018-12-28 06:02] LABS: CARBON DIOXIDE 31 mmol/L (22-30); CHLORIDE 111 mmol/L (98-107); SODIUM 144.6 mmol/L (137-145)
[2018-12-28 06:06] LABS: ANION GAP 3 (5-19)
[2018-12-28] MEDS: LEVALBUTEROL HCL NEB 1.25 MG/3 ML AMPUL NEB SCH (08:14)
[2018-12-28] MEDS: IPRATROPIUM BROMIDE 0.02% NEB 0.5 MG/2.5 ML AMPUL NEB SCH (08:14)
[2018-12-28] MEDS: BUDESONIDE NEB 0.5 MG/2 ML AMPUL NEB SCH (08:15)
--- NOTE | 2018-12-28 09:32 | Progress Note ---
Provider Note Provider Note: I spoke with the patient's son, Rad Mcdonald, to discuss the patient's overall health and poor recovery following orthopedic surgery. I described the patient's advanced dementia now requiring 24-hour supervision (alert and oriented to self only, pleasantly confused, sundowning), malnourished state (BMI 13.3) with minimal p.o. intake, severe emphysema by CT, development of respiratory failure postoperatively requiring high flow nasal cannula (now improved), and age all being indications for goal of care discussion and consideration of palliative care/hospice services. Further recommended the patient be a DNR given the highly probable poor outcome regardless of aggressive and heroic measures. Mr. Mcdonald stated that his brother, who lives out of state, is the patient's POA. He confirms that the patient has began speaking about end-of-life and so they may need to revisit her current living will which clearly states that she would wish "attempts at resuscitation." He acknowledges that those attempts may be futile, however, at this time, the patient is to remain a FULL CODE. He is agreeable to meeting with palliative care/hospice services to discuss future goals of care. Will recommend outpatient Palliative Care/Hospice consultation to arrange for a family conference to discuss the patient's future healthcare desires. Face to Face time: 20 minutes at patient's bedside, 30 minutes on the phone with the patient's son and [id number]. >50% spent in counseling and coordination of care with regard to advance care planning.
--- NOTE | 2018-12-28 09:34 | PDOC DISCHARGE SUMMARY ---
General - Admit/Disc Date/PCP Admission Date/Primary Care Provider: 12/18/18 04:41 MIGUEL LOWRY MD Discharge Date: 12/28/18 - Discharge Diagnosis (1) Closed intertrochanteric fracture of left femur Is this a current diagnosis for this admission?: Yes Summary: Now POD # 10 left cephalo-medullary nail intertrochanteric fracture by Dr. Adela Choi. She was on Lovenox for DVT prophylaxis postoperatively. We will continue on oral aspirin. The patient is high risk for falls and bleeding complications; not a good candidate for long-term anticoagulation. She is discharged to [facility] for continued physical therapy/rehabilitation. Should follow-up with Dr. Adela Choi as scheduled on January 01. (2) Anemia Is this a current diagnosis for this admission?: Yes Summary: Stable; Hgb 7.6->11->10.2--> 8.6--> 8.6 Anemia panel revealed severely depleted iron stores. The patient is now status post 2 units PRBC and iron infusion. Recommend continuing multivitamin with iron supplementation. Encouraged nutrition. Recommend follow-up CBC in 5-7 days. (3) Chronic obstructive pulmonary disease Is this a current diagnosis for this admission?: Yes Summary: Improved. Chest x-ray demonstrated left pleural effusion and left lower lobe consolidat ion. Repeat CXR is slightly improved. CT of the chest shows severe emphysema, bilateral moderate pleural effusions, mild bilateral atelectasis. Negative for pulmonary embolus. ABG demonstrated respiratory alkalosis with hypoxia; pH 7.52, CO2 32.5, PO2 50.2, HCO3 25.8 The patient did briefly experience respiratory failure with hypoxia postoperatively; she was supported with her home dose Spiriva, Serevent, Pulmicort, scheduled and as needed nebulizer treatments, IV Lasix for diuresis, and p.o. prednisone. She did briefly require high flow nasal cannula, but has been weaned to supplemental oxygen at 1-2 L/min via nasal cannula and is maintaining oxygen saturations while at rest in the mid to high 90s. On day of discharge, she is maintaining oxygen saturations on 1 L/min while at rest. Breathing is even and unlabored, lung sounds are clear. Recommend palliative care consultation with possible hospice bridge due to advanced emphysema. (4) Dementia Is this a current diagnosis for this admission?: Yes Summary: Continue home dose aricept and Namenda. The patient is alert and oriented to self and place, conversational, and socially appropriate baseline. She does sundowning in the evenings with agitation but does not require sedation or a sitter. Recommend palliative care consultation. (5) Hypertension Is this a current diagnosis for this admission?: Yes Summary: Blood pressures are acceptable for age. Patient reports dizziness with activity; orthostatic hypotension versus debility from prolonged immobility. Continue home dose losartan; she has been placed on low-dose carvedilol and furosemide. Recommend daily weights and weaning furosemide as tolerated. Further recommend review of Aricept and Namenda with family members with regard to side effect of dizziness if the patient continues to have vertigo with activity. (6) Urinary retention Is this a current diagnosis for this admission?: Yes Summary: Resolved Postoperative urinary retention requiring short-term placement of John catheter. Started on Flomax. Recommend monitoring urinary output; consideration of straight cath every 6 hours as needed per facilities protocols. Consider urology follow-up should the patient continue to have difficulty with urinary retention. (7) Chest pain Is this a current diagnosis for this admission?: Yes Summary: Resolved. Patient persistently complains of R sided chest pain EKG shows NSR. Cardiac enzymes normal. Pain reproducible with palpation - likely musculoskeletal PRN tylenol, percocet for pain control (8) Acute respiratory failure with hypoxia Is this a current diagnosis for this admission?: Yes Summary: Resolved. Now maintaining oxygen saturations on NC at 1 lpm. No longer tachycardic, tachypneic, or hypoxic; improved patient alertness and comfort today. Pt is not home O2 dependant. Chest x-ray demonstrated left pleural effusion and left lower lobe consolidation. Repeat chest x-ray shows slight improved aeration. CT of the chest shows severe emphysema, bilateral moderate pleural effusions, mild bilateral atelectasis. Negative for pulmonary embolus. ABG demonstrates respiratory alkalosis with hypoxia The patient did briefly experience respiratory failure with hypoxia postoperatively; she was supported with her home dose Spiriva, Serevent, Pulmicort, scheduled and as needed nebulizer treatments, IV Lasix for diuresis, and p.o. prednisone. She did briefly require high flow nasal cannula, but has been weaned to supplemental oxygen at 1-2 L/min via nasal cannula and is maintaining oxygen saturations while at rest in the mid to high 90s. Her Lovenox was placed on hold in anticipation of possible need for thoracentesis; fortunately serial chest x-rays and clinical evaluations demonstrated improvem ent of her pleural effusions and she did not require invasive interventions. I did speak with the patient's family son, Rad Mcdonald, to discuss the patient's severe emphysema. He confirms continued FULL CODE STATUS but is agreeable to meeting with Palliative Care services. On day of discharge, she is maintaining oxygen saturations on 1 L/min while at rest. Breathing is even and unlabored, lung sounds are clear. (9) Full code status Is this a current diagnosis for this admission?: Yes Summary: Spoke with the patient's son, Rad Mcdonald, to discuss the patient's overall health. I described advanced dementia now requiring 24-hour supervision (alert and oriented to self only, pleasantly confused, sundowning), malnourished (BMI 13.3) with minimal p.o. intake, severe emphysema by CT, and age all being indications for goal of care discussion and consideration of palliative care/hospice services. Mr. Mcdonald stated that his brother, who lives out of state, is the patient's POA. He confirms that the patient has began speaking about end-of-life and so they may need to revisit her current living will. However, at this time, the patient remains a FULL CODE. He is agreeable to meeting with palliative care/hospice services to discuss future goals of care. - Additional Information Resuscitation Status: Full Code Discharge Diet: As Tolerated - Low-sodium, Mech soft with ground meats, thin liquids. Requires assist. Discharge Activity: Activity As Tolerated, Balance Activity w/Rest, Slowly Increase Activity, Supervised Activity Prescriptions: Furosemide [Lasix] 10 mg PO DAILY #14 tablet Ipratropium [place] [Atrovent 0.02% Neb 0.5 mg/2.5 ml Ampul] 0.5 mg NEB RTQ6HP PRN #60 vial.neb PRN Reason: Shortness Of Breath Levalbuterol HCl [Xopenex Neb 1.25 mg/3 ml Ampul] 1.25 mg NEB RTQ6HP PRN #60 vial.neb PRN Reason: Shortness Of Breath Losartan Potassium [Cozaar 50 mg Tablet] 50 mg PO DAILY #30 tablet Nicotine [Nicoderm 21 mg/24 Hr Transderm Patch] 1 each TD DAILYP PRN #30 patch.td24 PRN Reason: Oxycodone HCl/Acetaminophen [Percocet 5-325 mg Tablet] 1 tab PO Q4HP PRN #18 tablet PRN Reason: Prednisone [Deltasone 20 mg Tablet] 60 mg PO DAILY #15 tablet Vit/Dha [ Multi + Dha Capsule] 1 cap PO DAILY #30 capsule Tamsulosin HCl [Flomax 0.4 mg Cap.sr] 0.4 mg PO PCSUPPER #30 cap.sr.24h Tiotropium [place] [Spiriva Handihaler 5 Cap/Kit (18 Mcg/Cap)] 1 cap IH DAILY #1 kit Home Medications: Albuterol Sulfate [Ventolin Hfa] 1 - 2 puff IH Q4 PRN 01/05/16 Alendronate Sodium [Binosto] 70 mg PO TU@1000 01/05/16 Budesonide/Formoterol Fumarate [Symbicort HFA 160-4.5 mcg Inhaler 6 gm] 2 puff IH BID 06/20/16 Donepezil HCl [Aricept] 10 mg PO DAILY 06/20/16 Aspirin [Ecotrin 81 mg EC Tablet] 81 mg PO DAILY #30 tabec 06/22/16 Calcium Carbonate/Vitamin D3 [Calcium 600 + Vit D Tablet] 1 tab PO DAILY 12/18/18 Cholecalciferol (Vitamin D3) [Vitamin D3 5000 unit Capsule] 5,000 unit PO DAILY 12/18/18 Cyanocobalamin (Vitamin B-12) [B-12] 1,000 mcg PO DAILY 12/18/18 Cyproheptadine HCl 4 mg PO BID 12/18/18 Ferrous Sulfate [Iron] 325 mg PO DAILY 12/18/18 Fluoxetine HCl [Prozac 20 mg Capsule] 20 mg PO DAILY 12/18/18 Folic Acid 0.8 mg PO DAILY 12/18/18 Memantine HCl [Namenda Xr] 28 mg PO DAILY 12/18/18 Multivitamin [Multiple Vitamins] 1 each PO DAILY 12/18/18 Trazodone HCl [Desyrel 50 mg Tablet] 50 mg PO QHS 12/18/18 Acetaminophen [Tylenol 325 mg Tablet] 650 mg PO Q4HP PRN tablet 12/24/18 Losartan Potassium [Cozaar 50 mg Tablet] 50 mg PO DAILY #30 tablet 12/24/18 Nicotine [Nicoderm 21 mg/24 Hr Transderm Patch] 1 each TD DAILYP PRN #30 patch.td24 12/24/18 Oxycodone HCl/Acetaminophen [Percocet 5-325 mg Tablet] 1 tab PO Q4HP PRN #18 ta blet 12/24/18 Vit/Dha [ Multi + Dha Capsule] 1 cap PO DAILY #30 capsule 12/24/18 Sennosides/Docusate 8.6-50 mg [Senna Plus Tablet] 1 each PO BID tablet 12/24/18 Tamsulosin HCl [Flomax 0.4 mg Cap.sr] 0.4 mg PO PCSUPPER #30 cap.sr.24h 12/24/18 Tiotropium [place] [Spiriva Handihaler 5 Cap/Kit (18 Mcg/Cap)] 1 cap IH DAILY #1 kit 12/24/18 Carvedilol [Coreg] 1 tab PO Q12 #60 tab 12/28/18 Furosemide [Lasix] 10 mg PO DAILY #14 tablet 12/28/18 Ipratropium [place] [Atrovent 0.02% Neb 0.5 mg/2.5 ml Ampul] 0.5 mg NEB RTQ6HP PRN #60 vial.neb 12/28/18 Levalbuterol HCl [Xopenex Neb 1.25 mg/3 ml Ampul] 1.25 mg NEB RTQ6HP PRN #60 vial.neb 12/28/18 Prednisone [Deltasone 20 mg Tablet] 60 mg PO DAILY #15 tablet 12/28/18 History of Present Illness History of Present Illness: Per H&P by Dr. Rondon: ARPIT ARITA is a 78 year old female who was presented to the emergency room via EMS with a history that she had fallen at some time at home and had developed sudden pain of her left hip and inability to stand on the hip after the fall. She apparently crawled to the phone in order to get help by contacting 911. Patient unfortunately has rather profound dementia and is unable to contribute any more useful information to her medical care. She is unsure of how long she may have been down and is not sure of the circumstances of the fall she is however certain that her left hip is severely painful whenever it is moved or pressure is applied to the area. In the emergency room she was found to have an intertrochanteric fracture of the left hip and subsequently will be admitted to our service for medical care and Dr. Deleon will be consulted for orthopedic evaluation and treatment. Physical Exam Vital Signs: Temp Pulse Resp BP Pulse Ox 98.3 F 80 20 161/59 H 94 12/28/18 08:26 12/27/18 23:20 12/28/18 08:26 12/28/18 08:26 12/28/18 03:56 Pulse Oximeter Continuous Start: 12/24/18 16:20 Freq: RTQ4 Status: Active Protocol: Document 12/28/18 03:56 CBR (Rec: 12/28/18 03:57 CBR [id number]) Pulse Oximetry Assessment Oxygen Saturation (92-100) 94 Oxygen Flow Rate (L/min) 2 Oxygen Delivery Method Nasal Cannula Fraction of Inspired Oxygen (FIO2) 28 Equipment Usage Equipment in Use Continuous SpO2 Machine # 5 Intake & Output 12/27/18 12/28/18 12/29/18 06:59 06:59 06:59 Intake Total 457 357 Output Total 1420 590 Balance -963 -233 Weight 33.1 kg 31.9 kg General appearance: PRESENT: no acute distress, well-developed, other - Cachectic Head exam: PRESENT: atraumatic, normocephalic Eye exam: PRESENT: conjunctiva pink, EOMI, PERRLA. ABSENT: scleral icterus Ear exam: PRESENT: normal external ear exam Mouth exam: PRESENT: moist, tongue midline Neck exam: ABSENT: carotid bruit, JVD, lymphadenopathy, thyromegaly Respiratory exam: PRESENT: clear to auscultation raeann, symmetrical, unlabored, other. ABSENT: rales, rhonchi, wheezes Cardiovascular exam: PRESENT: RRR, +S1, +S2. ABSENT: diastolic murmur, rubs, systolic murmur Pulses: PRESENT: normal dorsalis pedis pul Vascular exam: PRESENT: normal capillary refill GI/Abdominal exam: PRESENT: normal bowel sounds, soft. ABSENT: distended, guarding, mass, organolmegaly, rebound, tenderness Rectal exam: PRESENT: deferred Extremities exam: PRESENT: tenderness - Left lower extremity. ABSENT: calf tenderness, clubbing, pedal edema Neurological exam: PRESENT: alert, awake, oriented to person, CN II-XII grossly intact, other - Pleasantly confused, socially appropriate at baseline. Does experience sundowning with agitation; does not require sedation or restraints.. ABSENT: motor sensory deficit Psychiatric exam: PRESENT: appropriate affect, normal mood. ABSENT: homicidal ideation, suicidal ideation Skin exam: PRESENT: dry, warm, other - Surgical incision left hip. ABSENT: cyanosis, rash Results Laboratory Results: 12/27/18 04:35 12/28/18 05:19 12/28/18 05:19 Sodium 144.6 Potassium 3.4 L Chloride 111 H Carbon Dioxide 31 H Anion Gap 3 L BUN 47 H Creatinine 1.35 H Est GFR ( Amer) 46 L Est GFR (Non-Af Amer) 38 L Glucose 88 Calcium 9.0 12/18/18 12/20/18 12/25/18 00:07 04:36 05:20 CK-MB (CK-2) 2.59 Troponin I < 0.012 < 0.012 NT-Pro-B Natriuret Pep 5590 H 12/26/18 12/28/18 04:14 05:19 CK-MB (CK-2) Troponin I NT-Pro-B Natriuret Pep 4820 H 05592 H Impressions: Cervical Spine CT 12/18/18 01:44 IMPRESSION: Negative for acute C-spine abnormality. Multilevel degenerative change. Left sphenoid sinusitis. Emphysematous changes.. TECHNICAL DOCUMENTATION: Quality ID # [id number]: Final reports with documentation of one or more dose reduction techniques (e.g., Automated exposure control, adjustment of the mA and/or kV according to patient size, use of iterative reconstruction technique) copyright 2011 [employer]- All Rights Reserved Head CT 12/18/18 01:44 IMPRESSION: No acute intracranial abnormalities. Hand X-Ray 12/18/18 01:48 IMPRESSION: No acute osseous abnormalities. copyright 2010 [employer]- All Rights Reserved Wrist X-Ray 12/18/18 01:48 IMPRESSION: No acute osseous abnormalities. copyright 2010 [employer]- All Rights Reserved Fluoroscopy 12/19/18 00:00 IMPRESSION: IMAGE(S) OBTAINED DURING PROCEDURE. Hip X-Ray 12/19/18 00:00 IMPRESSION: IMAGE(S) OBTAINED DURING PROCEDURE. Chest/Abdomen CTA 12/24/18 00:00 IMPRESSION: 1. Negative examination pulmonary embolism. 2. Moderate bilateral pleural effusions. 3. Severe emphysema. 4. Coronary artery disease. Chest X-Ray 12/26/18 00:00 IMPRESSION: Persistent basilar opacities in left effusion with slight improved aeration. Qualifiers - * PATIENT BEING DISCHARGED WITH ANY OF THE FOLLOWING DIAGNOSIS: Heart Failure HF Pt being discharged on ACEI for LVEF less than 40%?: No Reason(s) for not prescribing ACEI:: Not indicated - On ARB HF Pt being discharged on ARBS for LVEF less than 40%?: Yes HF Pt with Afib discharged with Warfarin?: No Reason(s) for not prescribing Warfarin:: Not indicated - Not in A. fib HF Pt discharged on evidence-based Beta Nadir:: Yes
[2018-12-28] MEDS ORDERED: FUROSEMIDE 20 MG TABLET PO SCH (10:00)
[2018-12-28] MEDS: PRENATAL VITAMIN W DHA CAPSULE PO SCH (10:08)
[2018-12-28] MEDS: PREDNISONE 20 MG TABLET PO SCH (10:08)
[2018-12-28] MEDS: CALCIUM CARBONATE 250 MG/VITAMIN D3 125 UNIT TABLET PO SCH (10:09)
[2018-12-28] MEDS: SENNOSIDES/DOCUSATE 8.6-50 MG 1 EACH TABLET PO SCH ×2 (10:09→17:28)
[2018-12-28] MEDS: FERROUS SULFATE 325 MG TABLET PO SCH (10:09)
[2018-12-28] MEDS: DONEPEZIL HCL 5 MG TABLET PO SCH (10:09)
[2018-12-28] MEDS: MULTIVITAMIN TABLET PO SCH (10:09)
[2018-12-28] MEDS: FLUOXETINE HCL 20 MG CAPSULE PO SCH (10:09)
[2018-12-28] MEDS: LOSARTAN POTASSIUM 50 MG TABLET PO SCH (10:09)
[2018-12-28] MEDS: ASPIRIN 81 MG TABLET, ENT COATED PO SCH (10:09)
[2018-12-28] MEDS: FOLIC ACID 1 MG TABLET PO SCH (10:09)
[2018-12-28] MEDS: CYANOCOBALAMIN (VITAMIN B-12) 1,000 MCG TABLET PO SCH (10:09)
[2018-12-28] MEDS: FAMOTIDINE INJ/PF 20 MG/2 ML SDV IV SCH (10:10)
[2018-12-28] MEDS: TIOTROPIUM BROMIDE DPI 5 CAP/KIT (18 MCG/CAP) IH SCH (10:10)
[2018-12-28] MEDS: SALMETEROL XINAFOATE DISKUS 50 MCG/1 DOSE 28 DOSE IH SCH (10:10)
[2018-12-28] MEDS: OXYCODONE-ACETAMINOPHEN 5-325 MG TABLET PO PRN (12:54)
[2018-12-28 13:19] VITALS: BP 147/61
[2018-12-28] MEDS: TAMSULOSIN HCL 0.4 MG CAP.SR.24H PO SCH (17:28)
== END 2018-12-28 18:46 | DRG 480 ==
LOC: ER 23:52 → UNDOADMIN 12-18 04:41 → EH 12-18 04:41 → 5 12-18 19:11
PROVIDERS: ADMIT Emergency Medicine; ATTEND Emergency Medicine
PROC: 3E0234Z Introduction of Serum, Toxoid and Vaccine into Muscle, Percutaneous Approach (ICD-10-PCS; 2018-12-18)
PROC: 3E0F73Z Introduction of Anti-inflammatory into Respiratory Tract, Via Natural or Artificial Opening (ICD-10-PCS; 2018-12-18)
PROC: 30233N1 Transfusion of Nonautologous Red Blood Cells into Peripheral Vein, Percutaneous Approach (ICD-10-PCS; 2018-12-19)
PROC: 0QS736Z Reposition Left Upper Femur with Intramedullary Internal Fixation Device, Percutaneous Approach (ICD-10-PCS; principal; 2018-12-19 08:00)
DX: S72.142A Displaced intertrochanteric fracture of left femur, initial encounter for closed fracture (principal); J96.01 Acute respiratory failure with hypoxia; Z68.1 Body mass index [BMI] 19.9 or less, adult; E46 Unspecified protein-calorie malnutrition; W19.XXXA Unspecified fall, initial encounter; Y92.009 Unspecified place in unspecified non-institutional (private) residence as the place of occurrence of the external cause; J43.9 Emphysema, unspecified; R33.9 Retention of urine, unspecified; M85.80 Other specified disorders of bone density and structure, unspecified site; G30.9 Alzheimer's disease, unspecified; F02.80 Dementia in other diseases classified elsewhere, unspecified severity, without behavioral disturbance, psychotic disturbance, mood disturbance, and anxiety; N18.9 Chronic kidney disease, unspecified; I12.9 Hypertensive chronic kidney disease with stage 1 through stage 4 chronic kidney disease, or unspecified chronic kidney disease; D50.9 Iron deficiency anemia, unspecified; Z60.2 Problems related to living alone; Z23 Encounter for immunization; Z90.49 Acquired absence of other specified parts of digestive tract; Z90.710 Acquired absence of both cervix and uterus; Z79.82 Long term (current) use of aspirin; Z88.0 Allergy status to penicillin; Z82.49 Family history of ischemic heart disease and other diseases of the circulatory system
CPT/HCPCS: 01230; 36415; 36430; 36600; 70450; 71045; 71275; 72125; 73522; 80048; 81001; 82553; 82607; 82728; 82746; 82803; 82962; 83540; 83550; 83735; 83880; 84439; 84443; 84481; 84484; 85025; 85027; 85045; 86850; 86900; 86901; 86920; 90471; 90715; 93005; 93010; 94640; 94762; 94799; 99285; C1713; J0690; J1650; J1885; J1940; J2250; J2270; J2704; J3010; J3490; J7120; J7512; P9016; Q0138; S0028

== ENCOUNTER 2019-03-17 18:32 | Emergency (ER) | payer MEDICARE, OTHER ==
--- NOTE | 2019-03-17 20:11 | ER Document Report ---
ED General - General Chief Complaint: Leg Pain Stated Complaint: LEG PAIN Time Seen by Provider: 03/17/19 19:21 Primary Care Provider: MASON CARLTON MD [Primary Care Provider] - Follow up as needed CHRISSY ALTAMIRANO MD [ACTIVE STAFF] - Follow up in 3-5 days Cannot obtain history due to: Dementia Notes: Patient is a 78-year-old female residing at [facility] who presents due to concerns of uncontrolled pain in her left lower extremity. Patient was hospitalized in November for a left intertrochanteric fracture that was repaired but has not been ambulatory since that time. Patient herself is unable to provide any meaningful history secondary to her advanced dementia. Family at bedside states that the patient has always complained of pain since surgery, has refused to walk or participate in physical therapy which has resulted in progressively worsening deconditioning. The patient as far as family knows has not gotten up and out of bed the entire time while at the [facility]. There is also concern of a wound to her left heel which the family has not seen. Apparently the patient received a Percocet at [facility] which did not control her pain and resulted in transfer to the emergency department. Per EMS the patient was in no distress during transport to the hospital and has been noted to be calmly resting in bed since arriving here in the emergency department. No new fall or injury. TRAVEL OUTSIDE OF THE [place] IN LAST 30 DAYS: No - Related Data Allergies/Adverse Reactions: Penicillins Allergy (Verified 06/20/16 10:52) Past Medical History - General Information source: Relative Cannot obtain history due to: Dementia - Social History Smoking Status: Never Smoker Frequency of alcohol use: None Drug Abuse: None Lives with: Care Home Family History: Hypertension Patient has suicidal ideation: No Patient has homicidal ideation: No - Past Medical History Cardiac Medical History: Reports: Hx Hypertension Denies: Hx Atrial Fibrillation, Hx Coronary Artery Disease, Hx DVT, Hx Hypercholesterolemia, Hx Pulmonary Embolism Pulmonary Medical History: Reports: Hx Asthma, Hx COPD Neurological Medical History: Denies: Hx Seizures Endocrine Medical History: Denies: Hx Diabetes Mellitus Type 1, Hx Diabetes Mellitus Type 2, Hx Hyperthyroidism, Hx Hypothyroidism Renal/ Medical History: Denies: Hx Peritoneal Dialysis GI Medical History: Denies: Hx Cirrhosis, Hx Hepatitis Musculoskeletal Medical History: Reports Hx Arthritis, Denies Hx Fibromyalgia Skin Medical History: Denies Hx Eczema, Denies Hx Psoriasis Psychiatric Medical History: Reports: Hx Dementia Infectious Medical History: Denies: Hx Hepatitis Past Surgical History: Reports: Hx Appendectomy, Hx Cholecystectomy, Hx Hysterectomy - Immunizations Hx Diphtheria, Pertussis, Tetanus Vaccination: Yes Review of Systems - Review of Systems -: Yes ROS unobtainable due to patient's medical condition Physical Exam - Vital signs Vitals: Temp Pulse Resp BP Pulse Ox 97.6 F 62 18 151/44 H 100 03/17/19 18:44 03/17/19 18:44 03/17/19 18:44 03/17/19 18:44 03/17/19 18:44 Interpretation: Hypertensive Notes: PHYSICAL EXAMINATION: GENERAL: Frail, cachectic elderly female in no distress HEAD: Atraumatic, normocephalic. EYES: Pupils equal round and reactive to light, extraocular movements intact, sclera anicteric, conjunctiva are normal. ENT: nares patent, oropharynx clear without exudates. Moist mucous membranes. NECK: Normal range of motion, supple without lymphadenopathy LUNGS: Breath sounds clear to auscultation bilaterally and equal. No wheezes rales or rhonchi. HEART: Regular rate and rhythm without murmurs ABDOMEN: Soft, nontender, normoactive bowel sounds. No guarding, no rebound. No masses appreciated. EXTREMITIES: Global muscle wasting particularly bilateral lower extremities. No focal area of deformity or limited range of motion NEUROLOGICAL: No focal neurological deficits. Moves all extremities spontaneously and on command. PSYCH: Normal mood, normal affect. SKIN: Warm, Dry, normal turgor, there is an Escher to the heel of the left foot Course - Re-evaluation Re-evalutation: 03/17/19 20:14 Patient presents with concerns of increasing left heel pain a left intertrochanteric repair in November. The dressing was removed and there is an Escher at the base of the heel without swelling cellulitis, induration or evidence of acute infection. The left hip is otherwise unremarkable, surgical incisions are well-healed. There is no obvious deformity, no recurrent fall. Patient is comfortable, in no distress of any kind. Apparently she was sent here for uncontrolled pain although does not appear to be in any distress. There is no recurrent fall, no new injury. I had an extensive conversation with the family at the bedside as the patient has had significant muscle wasting and does not appear that she is getting up or walking at all which family does confirm. It appears that this heel wound is likely secondary to lying in bed for prolonged periods of time and the patient does need referral to wound management. I have encouraged the family to discuss with primary care at the nursing facility need for wound management of the left heel as well as ongoing physical therapy. No indication for labs or imaging at this point. Family in agreement. Will discharge back to nursing facility. - Vital Signs Vital signs: Temp Pulse Resp BP Pulse Ox 97.6 F 66 16 128/41 H 97 03/17/19 18:44 03/17/19 21:08 03/17/19 21:08 03/17/19 21:08 03/17/19 21:08 Discharge - Discharge Clinical Impression: Eschar of heel, Debility Alzheimer's dementia Qualifiers: Alzheimer's disease onset: unspecified onset Dementia behavioral disturbance: without behavioral disturbance Qualified Code(s): G30.9 - Alzheimer's disease, unspecified Muscle wasting Qualifiers: Muscle atrophy area: unspecified site Qualified Code(s): M62.50 - Muscle wasting and atrophy, not elsewhere classified, unspecified site Condition: Stable Disposition: HOME-SNF (ED ONLY) Additional Instructions: Your mother does need to be referred to wound management for management of the wound on her left heel. This requires more than a simple dressing for healing and will require wound debridement. It is clear from her exam that there is minimal if any ambulation. She has almost no muscle tone in her legs and does not appear like she would be able to walk at all at this point. This is likely the cause of the wound on her foot. Please discuss with her care team at the nursing facility regarding long-term planning for if she will ever be able to get up and walk and get discharged back to an independent setting which seems unlikely at this time. Please have her follow-up with wound management at your earliest ability. Return for any additional concerns you may have. Referrals: MASON ACRLTON MD [Primary Care Provider] - Follow up as needed CHRISSY ALTAMIRANO MD [ACTIVE STAFF] - Follow up in 3-5 days
[2019-03-17 21:08] VITALS: BP 128/41
[2019-03-17] MEDS ORDERED: ACETAMINOPHEN 325 MG TABLET PO ONE (21:12)
== END 2019-03-17 22:01 ==
LOC: ER 18:32
DX: R54 Age-related physical debility (principal); M79.605 Pain in left leg; L98.8 Other specified disorders of the skin and subcutaneous tissue; M62.50 Muscle wasting and atrophy, not elsewhere classified, unspecified site; G30.9 Alzheimer's disease, unspecified; J44.9 Chronic obstructive pulmonary disease, unspecified; I10 Essential (primary) hypertension; Z88.0 Allergy status to penicillin; Z90.710 Acquired absence of both cervix and uterus; Z90.49 Acquired absence of other specified parts of digestive tract; Z98.890 Other specified postprocedural states
CPT/HCPCS: 99283; A9270

== ENCOUNTER → 2019-04-15 | Outpatient (CLI) | payer MEDICARE ==
--- NOTE | 2019-04-15 12:44 | RADIOLOGY REPORT (SQ) ---
EXAM DESCRIPTION: ARTERIAL LOWER EXTREM BILAT; PHYSIO ARTERIAL LTD COMPLETED DATE/TIME: 04/15/2019 12:15 pm REASON FOR STUDY: LT FOOT ULCER L97.422 NON-PRS CHR ULCER OF LEFT HEEL AND MIDFOOT W FAT LAY COMPARISON: None. TECHNIQUE: Dynamic and static beltrán scale and color images acquired of the lower extremity arteries. Additional selected spectral images recorded. ABIs recorded. LIMITATIONS: None. FINDINGS: RIGHT LEG: ABIS: 0.56 to 0.63 INFLOW ARTERIES: No stenosis. FEMORAL ARTERIES:Multiphasic waveforms. Elevated velocity mid SFA 2.86 m/sec POPLITEAL ARTERY:Biphasic waveforms. No focal stenosis. PATENT TIBIOPERONEAL TRUNK AND 3 VESSEL RUNOFF: Anterior posterior tibial patent. Peroneal not visua lized. TBI: Not performed. OTHER: No other significant finding. LEFT LEG: ABIS: 0.51 INFLOW ARTERIES: No stenosis. FEMORAL ARTERIES:Multiphasic waveforms. Elevated velocity mid SFA 2.5 m/sec. POPLITEAL ARTERY:Biphasic waveforms. No focal stenosis. PATENT TIBIOPERONEAL TRUNK AND 3 VESSEL RUNOFF: BS. Occluded posterior tibial distally. TBI: Not performed. OTHER: No other significant finding. IMPRESSION: Right: Estimated 50- 75% stenosis SFA. Small vessel disease. Left: Estimated 50 75% stenosis SFA. Small vessel disease. COMMENT: [facility] NORMAL: Greater than 1.0 MINIMAL DISEASE: 0.9 to 1.0 CLAUDICATION: 0.5 to 0.9 SEVERE ARTERIAL DISEASE: Less than 0.5 [facility] NORMAL: Greater than 1.0 (1.2 If Heavy Calcifications) NORMAL TO MILD ISCHEMIA: 0.8 to 1.0 MODERATE ISCHEMIA: 0.4 to 0.8 SEVERE ISCHEMIA: Less than 0.4 TECHNICAL DOCUMENTATION: JOB ID: [id number] [employer]- All Rights Reserved Reading location - IP/workstation name: [email or web address]
--- NOTE | 2019-04-15 12:44 | RADIOLOGY REPORT (SQ) ---
EXAM DESCRIPTION: ARTERIAL LOWER EXTREM BILAT; PHYSIO ARTERIAL LTD COMPLETED DATE/TIME: 04/15/2019 12:15 pm REASON FOR STUDY: LT FOOT ULCER L97.422 NON-PRS CHR ULCER OF LEFT HEEL AND MIDFOOT W FAT LAY COMPARISON: None. TECHNIQUE: Dynamic and static beltrán scale and color images acquired of the lower extremity arteries. Additional selected spectral images recorded. ABIs recorded. LIMITATIONS: None. FINDINGS: RIGHT LEG: ABIS: 0.56 to 0.63 INFLOW ARTERIES: No stenosis. FEMORAL ARTERIES:Multiphasic waveforms. Elevated velocity mid SFA 2.86 m/sec POPLITEAL ARTERY:Biphasic waveforms. No focal stenosis. PATENT TIBIOPERONEAL TRUNK AND 3 VESSEL RUNOFF: Anterior posterior tibial patent. Peroneal not visua lized. TBI: Not performed. OTHER: No other significant finding. LEFT LEG: ABIS: 0.51 INFLOW ARTERIES: No stenosis. FEMORAL ARTERIES:Multiphasic waveforms. Elevated velocity mid SFA 2.5 m/sec. POPLITEAL ARTERY:Biphasic waveforms. No focal stenosis. PATENT TIBIOPERONEAL TRUNK AND 3 VESSEL RUNOFF: BS. Occluded posterior tibial distally. TBI: Not performed. OTHER: No other significant finding. IMPRESSION: Right: Estimated 50- 75% stenosis SFA. Small vessel disease. Left: Estimated 50 75% stenosis SFA. Small vessel disease. COMMENT: [facility] NORMAL: Greater than 1.0 MINIMAL DISEASE: 0.9 to 1.0 CLAUDICATION: 0.5 to 0.9 SEVERE ARTERIAL DISEASE: Less than 0.5 [facility] NORMAL: Greater than 1.0 (1.2 If Heavy Calcifications) NORMAL TO MILD ISCHEMIA: 0.8 to 1.0 MODERATE ISCHEMIA: 0.4 to 0.8 SEVERE ISCHEMIA: Less than 0.4 TECHNICAL DOCUMENTATION: JOB ID: [id number] [employer]- All Rights Reserved Reading location - IP/workstation name: [email or web address]
== END ==
LOC: SP 10:00
PROVIDERS: ATTEND Nurse Practitioner Family
DX: L97.422 Non-pressure chronic ulcer of left heel and midfoot with fat layer exposed (principal); I77.1 Stricture of artery
CPT/HCPCS: 93922; 93925

== ENCOUNTER → 2019-07-02 | Outpatient (CLI) | payer MEDICARE ==
[2019-07-02 15:34] LABS: ABSOLUTE BASOPHILS # (AUTO) 0.1 10^3/uL (0.0-0.2); ABSOLUTE EOSINOPHILS # (AUTO) 0.2 10^3/uL (0.0-0.6); ABSOLUTE LYMPHOCYTES (AUTO) 1.2 10^3/uL (0.5-4.7); ABSOLUTE MONOCYTES (AUTO) 0.9 10^3/uL (0.1-1.4); ABSOLUTE NEUT (AUTO) 6.9 10^3/uL (1.7-8.2); BASOPHILS % (AUTO) 1.4 % (0-2); EOSINOPHILS % (AUTO) 2.2 % (0-6); HEMATOCRIT 31.5 % (36.0-47.0); HEMOGLOBIN 10.3 g/dL (12.0-15.5); LYMPHOCYTES % (AUTO) 13.1 % (13-45); MEAN CORPUSCULAR HEMOGLOBIN 33.1 pg (27.0-33.4); MEAN CORPUSCULAR HGB CONC 32.8 g/dL (32.0-36.0); MEAN CORPUSCULAR VOLUME 101 fl (80-97); MONOCYTES % (AUTO) 9.2 % (3-13); PLATELET COUNT 349 10^3/uL (150-450); RED BLOOD COUNT 3.12 10^6/uL (3.72-5.28); RED CELL DISTRIBUTION WIDTH 16.6 % (11.5-14.0); SEGMENTED NEUTROPHILS % (AUTO) 74.1 % (42-78); TOTAL CELLS COUNTED % (AUTO) 100 %; WHITE BLOOD COUNT 9.3 10^3/uL (4.0-10.5)
[2019-07-02 15:57] LABS: ALBUMIN 3.8 g/dL (3.5-5.0); ALKALINE PHOSPHATASE 120 U/L (38-126); ANION GAP 7 (5-19); ASPARTATE AMINO TRANSFERASE 34 U/L (14-36); BILIRUBIN,DIRECT 0.2 mg/dL (0.0-0.4); BILIRUBIN,TOTAL 0.5 mg/dL (0.2-1.3); BLOOD UREA NITROGEN 21 mg/dL (7-20); C-REACTIVE PROTEIN 26.3 mg/L (<10.0); CALCIUM 10.6 mg/dL (8.4-10.2); CARBON DIOXIDE 23 mmol/L (22-30); CHLORIDE 112 mmol/L (98-107); GLUCOSE 76 mg/dL (75-110); POTASSIUM 4.2 mmol/L (3.6-5.0); TOTAL PROTEIN 6.2 g/dL (6.3-8.2)
--- NOTE | 2019-07-02 16:01 | RADIOLOGY REPORT (SQ) ---
EXAM DESCRIPTION: OS CALCIS/HEEL LEFT COMPLETED DATE/TIME: 07/02/2019 3:04 pm REASON FOR STUDY: PRESSURE ULCER OF LEFT HEEL, STAGE 3 L89.623 PRESSURE ULCER OF LEFT HEEL, STAGE 3 COMPARISON: 06/04/2019 NUMBER OF VIEWS: Two views. TECHNIQUE: Plantar and oblique radiographic images acquired of the left calcaneous. LIMITATIONS: None. FINDINGS: MINERALIZATION: Osteopenia. BONES: No acute displaced fracture . There is a curvilinear band of sclerosis within the posterosupe rior calcaneus, not previously seen. No other acute bony abnormality. JOINTS: Mild osteophytosis. No dislocation pre SOFT TISSUES: No soft tissue swelling. No foreign body. OTHER: No other significant finding. IMPRESSION: New curvilinear band of sclerosis within the posterosuperior calcaneus suggestive of a c alcaneal insufficiency fracture. TECHNICAL DOCUMENTATION: JOB ID: [id number] [email or web address]- All Rights Reserved Reading location - IP/workstation name: [email or web address]
[2019-07-02 16:11] LABS: ERYTHROCYTE SEDIMENTATION RATE 55 mm/hr (0-30)
== END ==
LOC: WC 14:19
PROVIDERS: ATTEND Nurse Practitioner Family
DX: L89.623 Pressure ulcer of left heel, stage 3 (principal); M84.475A Pathological fracture, left foot, initial encounter for fracture
CPT/HCPCS: 36415; 80053; 85025; 85652; 86140

== ENCOUNTER 2019-07-10 13:33 | Emergency (ER) | payer MEDICARE ==
[2019-07-10 14:13] LABS: ABSOLUTE BASOPHILS # (AUTO) 0.2 10^3/uL (0.0-0.2); ABSOLUTE EOSINOPHILS # (AUTO) 0.2 10^3/uL (0.0-0.6); ABSOLUTE LYMPHOCYTES (AUTO) 1.4 10^3/uL (0.5-4.7); ABSOLUTE MONOCYTES (AUTO) 0.6 10^3/uL (0.1-1.4); ABSOLUTE NEUT (AUTO) 5.2 10^3/uL (1.7-8.2); EOSINOPHILS % (AUTO) 2.4 % (0-6); HEMATOCRIT 38.3 % (36.0-47.0); HEMOGLOBIN 12.7 g/dL (12.0-15.5); MEAN CORPUSCULAR HEMOGLOBIN 33.3 pg (27.0-33.4); MEAN CORPUSCULAR HGB CONC 33.2 g/dL (32.0-36.0); MEAN CORPUSCULAR VOLUME 100 fl (80-97); MONOCYTES % (AUTO) 8.4 % (3-13); PLATELET COUNT 477 10^3/uL (150-450); RED BLOOD COUNT 3.82 10^6/uL (3.72-5.28); RED CELL DISTRIBUTION WIDTH 15.7 % (11.5-14.0); SEGMENTED NEUTROPHILS % (AUTO) 69.2 % (42-78); TOTAL CELLS COUNTED % (AUTO) 100 %; WHITE BLOOD COUNT 7.6 10^3/uL (4.0-10.5)
[2019-07-10 14:14] LABS: ALBUMIN 4.8 g/dL (3.5-5.0); ALKALINE PHOSPHATASE 168 U/L (38-126); ANION GAP 13 (5-19); ASPARTATE AMINO TRANSFERASE 33 U/L (14-36); BILIRUBIN,DIRECT 0.3 mg/dL (0.0-0.4); BILIRUBIN,TOTAL 0.6 mg/dL (0.2-1.3); BLOOD UREA NITROGEN 19 mg/dL (7-20); CALCIUM 10.8 mg/dL (8.4-10.2); CARBON DIOXIDE 23 mmol/L (22-30); CHLORIDE 108 mmol/L (98-107); CREATINE KINASE 35 U/L (30-135); GLUCOSE 88 mg/dL (75-110); POTASSIUM 4.9 mmol/L (3.6-5.0); TOTAL PROTEIN 7.8 g/dL (6.3-8.2)
--- NOTE | 2019-07-10 14:14 | RADIOLOGY REPORT (SQ) ---
EXAM DESCRIPTION: CHEST SINGLE VIEW COMPLETED DATE/TIME: 07/10/2019 2:05 pm REASON FOR STUDY: chest pain COMPARISON: None. NUMBER OF VIEWS: One view. TECHNIQUE: Single frontal radiographic view of the chest acquired. LIMITATIONS: None. FINDINGS: LUNGS AND PLEURA: No opacities, masses or pneumothorax. No pleural effusion. Attenuated bl ood vessels and flattened eulalia-diaphragms. MEDIASTINUM AND HILAR STRUCTURES: No masses. Contour normal. HEART AND VASCULAR STRUCTURES: Heart normal in size. Normal vasculature. BONES: No acute findings. HARDWARE: None in the chest. OTHER: No other significant finding. IMPRESSION: COPD. NO ACUTE RADIOGRAPHIC FINDING IN THE CHEST. TECHNICAL DOCUMENTATION: JOB ID: [id number] [employer]- All Rights Reserved Reading location - IP/workstation name: [email or web address]
[2019-07-10 14:25] LABS: CREATINE KINASE MB 0.59 ng/mL (<4.55)
[2019-07-10 14:27] LABS: TROPONIN I < 0.012 ng/mL
[2019-07-10] MEDS ORDERED: NORMAL SALINE 1000 ML 1,000 ML IV ONE (15:44)
[2019-07-10 17:04] LABS: AMORPHOUS SEDIMENT,URINE TRACE /HPF; APPEARANCE,URINE TURBID; BILIRUBIN,URINE NEGATIVE (NEGATIVE); GLUCOSE, URINE NEGATIVE (NEGATIVE); KETONES,URINE TRACE mg/dL (NEGATIVE); LEUKOCYTE ESTERASE,URINE LARGE (NEGATIVE); NITRITE,URINE POSITIVE (NEGATIVE); PROTEIN,URINE 100 mg/dL (NEGATIVE); URINE SPECIFIC GRAVITY 1.019; UROBILINOGEN,URINE NEGATIVE mg/dL (<2.0)
[2019-07-10 17:05] LABS: COLOR,URINE DARK YELLOW
[2019-07-10] MEDS ORDERED: CEFTRIAXONE 1 GM/D5W RTU 1 GM/50 ML RTUPB IV ONE (19:18)
[2019-07-10 21:26] VITALS: BP 176/68
--- NOTE | 2019-07-10 21:45 | ER Document Report ---
Entered by MYNOR WEBB SCRIBE 07/10/19 1547 Acting as scribe for:TOYIN BARROW DO ED General - General Stated Complaint: CHEST PAIN Time Seen by Provider: 07/10/19 14:32 Primary Care Provider: EROS VENCES NP, MINING SUPPORT WORKER [Primary Care Provider] - Follow up as needed Mode of Arrival: Medic Information source: Patient Notes: 78-year-old female who presents to the emergency department today with complaints of "feeling lousy and weak" this morning. Son at bedside states that the patient frequently calls him to tell him when she does not feel good and he goes over to her house and usually is able to talk to her and the patient calms down. Son states that she tried to call him today but he did not answer the phone and she then used her life alert button and called 911. EMS run sheet reports that the patient complained of chest pain but nothing else. Patient currently denies any pain including abdominal pain or chest pain as well as shortness of breath. Family mentions that the patient goes long stretches without eating or drinking because she "forgets to". TRAVEL OUTSIDE OF THE [place] IN LAST 30 DAYS: No - Related Data Allergies/Adverse Reactions: Penicillins Allergy (Verified 06/20/16 10:52) Past Medical History - General Information source: Patient - Social History Smoking Status: Current Some Day Smoker Cigarette use (# per day): Yes Frequency of alcohol use: None Drug Abuse: None Lives with: Family Family History: Reviewed & Not Pertinent, Hypertension Patient has suicidal ideation: No Patient has homicidal ideation: No - Past Medical History Cardiac Medical History: Reports: Hx Hypertension Pulmonary Medical History: Reports: Hx Asthma, Hx COPD Musculoskeletal Medical History: Reports Hx Arthritis Psychiatric Medical History: Reports: Hx Dementia Past Surgical History: Reports: Hx Appendectomy, Hx Cholecystectomy, Hx Hysterectomy - Immunizations Hx Diphtheria, Pertussis, Tetanus Vaccination: Yes Review of Systems - Review of Systems Constitutional: No symptoms reported EENT: No symptoms reported Cardiovascular: denies: Chest pain Respiratory: denies: Short of breath Gastrointestinal: denies: Abdominal pain Genitourinary: No symptoms reported Female Genitourinary: No symptoms reported Musculoskeletal: No symptoms reported Skin: No symptoms reported Hematologic/Lymphatic: No symptoms reported Neurological/Psychological: denies: Headaches -: Yes All other systems reviewed and negative Physical Exam - Vital signs Vitals: Resp 19 07/10/19 13:38 - Notes Notes: Physical Exam: General: Alert, appears chronically ill. HEENT: Normocephalic. Atraumatic. PERRL. Extraocular movements intact. Oropharynx clear. Neck: Supple. Non-tender. Respiratory: No respiratory distress. Clear and equal breath sounds bilaterally. Cardiovascular: Regular rate and rhythm. Abdominal: Normal Inspection. Non-tender. No distension. Normal Bowel Sounds. Back: Non-tender. No deformity or step off. Extremities: Moves all four extremities. Upper extremities: Normal inspection. Normal ROM. Lower extremities: Normal inspection. No edema. Normal ROM. Neurological: AAOx2 to person and place. Normal speech. Psychological: Normal affect. Normal Mood. Skin: Warm. Dry. Normal color. Course - Re-evaluation Re-evalutation: 07/10/19 17:23 Patient has no complaints. Has consumed half of the sweet tea that she requested. Patient wants food. 07/10/19 20:25 Patient is a 78-year-old female who was brought in by EMS. Possible complaint of chest pain prior to arrival the patient is no complaints on presentation. She has had decreased p.o. intake but cannot tell me why. No complaints of pain. Blood work benign. Slight elevation of creatinine. Patient is being hydrated. Urine consistent with nitrate positive urinary tract infection. Rocephin given in the emergency department. Urine culture sent. 07/10/19 21:44 Patient eating and drinking without difficulty. Discussed admission versus going home with family. They will take her home and stay with her tonight. Urine culture sent. Vitals are stable. No fever. No further confusion. Patient feels well would prefer to go home. Stable for discharge. Will be discharged home with Keflex. Return if any worsening or concerning symptoms. Son advised of symptoms to look out for that would warrant repeat hospital visit. Stable for discharge. - Vital Signs Vital signs: Temp Pulse Resp BP Pulse Ox 23 H 176/68 H 94 07/10/19 21:03 07/10/19 21:03 07/10/19 21:03 - Laboratory Result Diagrams: 07/10/19 13:11 07/10/19 13:11 Laboratory results interpreted by me: 07/10/19 07/10/19 07/10/19 13:11 13:11 16:34 MCV 100 H RDW 15.7 H Plt Count 477 H Chloride 108 H Creatinine 1.51 H Est GFR ( Amer) 40 L Est GFR (Non-Af Amer) 33 L Calcium 10.8 H Alkaline Phosphatase 168 H Urine Protein 100 H Urine Ketones TRACE H Urine Blood SMALL H Urine Nitrite POSITIVE H Ur Leukocyte Esterase LARGE H Discharge - Discharge Clinical Impression: UTI (urinary tract infection) Qualifiers: Urinary tract infection type: site unspecified Hematuria presence: with jaylen turia Qualified Code(s): N39.0 - Urinary tract infection, site not specified; R31.9 - Hematuria, unspecified Condition: Stable Disposition: HOME, SELF-CARE Instructions: Urinary Tract Infection ([facility]) Prescriptions: Cephalexin Monohydrate [Keflex 500 mg Capsule] 500 mg PO TID 10 Days capsule Referrals: EROS VENCES NP, MINING SUPPORT WORKER [Primary Care Provider] - Follow up as needed Scribe Attestation: 07/10/19 21:45 I personally performed the services described in the documentation, reviewed and edited the documentation which was dictated to the scribe in my presence, and it accurately records my words and actions. I personally performed the services described in the documentation, reviewed and edited the documentation which was dictated to the scribe in my presence, and it accurately records my words and actions.
--- NOTE | 2019-07-11 11:32 | EKG REPORT ---
SEVERITY:- NORMAL ECG - SINUS RHYTHM : Confirmed by: Emerald Guthrie 11-Jul-2019 11:31:47
== END 2019-07-10 21:57 | disposition home or self-care (01) ==
LOC: ER 13:33
DX: N39.0 Urinary tract infection, site not specified (principal); R31.9 Hematuria, unspecified; R53.1 Weakness; F17.210 Nicotine dependence, cigarettes, uncomplicated; I10 Essential (primary) hypertension; J44.9 Chronic obstructive pulmonary disease, unspecified; Z88.0 Allergy status to penicillin
CPT/HCPCS: 93005; 99285; 96361; 96365; 96366; 36415; 87040; 87086; 82553; 82550; 85025; 87088; 80053; 81001; 84484; 71045; 93010; J7030; J0696; 87186

== ENCOUNTER 2019-07-14 12:40 | Inpatient (IN) | payer MEDICARE ==
[2019-07-14 13:58] LABS: ABSOLUTE BASOPHILS # (AUTO) 0.1 10^3/uL (0.0-0.2); ABSOLUTE EOSINOPHILS # (AUTO) 0.3 10^3/uL (0.0-0.6); ABSOLUTE LYMPHOCYTES (AUTO) 0.8 10^3/uL (0.5-4.7); ABSOLUTE MONOCYTES (AUTO) 0.7 10^3/uL (0.1-1.4); ABSOLUTE NEUT (AUTO) 5.8 10^3/uL (1.7-8.2); BASOPHILS % (AUTO) 1.8 % (0-2); EOSINOPHILS % (AUTO) 3.5 % (0-6); HEMATOCRIT 29.3 % (36.0-47.0); HEMOGLOBIN 9.8 g/dL (12.0-15.5); LYMPHOCYTES % (AUTO) 10.1 % (13-45); MEAN CORPUSCULAR HEMOGLOBIN 33.4 pg (27.0-33.4); MEAN CORPUSCULAR HGB CONC 33.5 g/dL (32.0-36.0); MEAN CORPUSCULAR VOLUME 100 fl (80-97); PLATELET COUNT 318 10^3/uL (150-450); RED BLOOD COUNT 2.93 10^6/uL (3.72-5.28); RED CELL DISTRIBUTION WIDTH 15.6 % (11.5-14.0); SEGMENTED NEUTROPHILS % (AUTO) 75.6 % (42-78); TOTAL CELLS COUNTED % (AUTO) 100 %; WHITE BLOOD COUNT 7.7 10^3/uL (4.0-10.5)
[2019-07-14 14:06] LABS: ALBUMIN 3.5 g/dL (3.5-5.0); ALKALINE PHOSPHATASE 102 U/L (38-126); ANION GAP 8 (5-19); ASPARTATE AMINO TRANSFERASE 34 U/L (14-36); BILIRUBIN,DIRECT 0.3 mg/dL (0.0-0.4); BILIRUBIN,TOTAL 0.5 mg/dL (0.2-1.3); BLOOD UREA NITROGEN 21 mg/dL (7-20); CALCIUM 9.5 mg/dL (8.4-10.2); CARBON DIOXIDE 21 mmol/L (22-30); CHLORIDE 112 mmol/L (98-107); CREATINE KINASE 38 U/L (30-135); GLUCOSE 76 mg/dL (75-110); POTASSIUM 4.5 mmol/L (3.6-5.0); TOTAL PROTEIN 5.7 g/dL (6.3-8.2)
[2019-07-14 14:17] LABS: CREATINE KINASE MB 0.73 ng/mL (<4.55); TROPONIN I < 0.012 ng/mL
--- NOTE | 2019-07-14 14:27 | RADIOLOGY REPORT (SQ) ---
EXAM DESCRIPTION: CHEST SINGLE VIEW COMPLETED DATE/TIME: 07/14/2019 2:17 pm REASON FOR STUDY: Fall, right anterior rib pain COMPARISON: 07/10/2019 EXAM PARAMETERS: NUMBER OF VIEWS: One view. TECHNIQUE: Single frontal radiographic view of the chest acquired. RADIATION DOSE: NA LIMITATIONS: None. FINDINGS: LUNGS AND PLEURA: Emphysema. No focal airspace opacity. MEDIASTINUM AND HILAR STRUCTURES: No masses. Contour normal. HEART AND VASCULAR STRUCTURES: Cardiomegaly. BONES: No acute findings. HARDWARE: None in the chest. OTHER: No other significant finding. IMPRESSION: Emphysema and cardiomegaly without acute abnormality of the lungs. No focal airspace op acity. TECHNICAL DOCUMENTATION: JOB ID: [id number] [email or web address]- All Rights Reserved Reading location - IP/workstation name: [email or web address]
[2019-07-14] MEDS ORDERED: NORMAL SALINE 500 ML IV ONE (15:52)
[2019-07-14 16:12] LABS: APPEARANCE,URINE CLEAR; BILIRUBIN,URINE NEGATIVE (NEGATIVE); COLOR,URINE YELLOW; GLUCOSE, URINE NEGATIVE (NEGATIVE); KETONES,URINE TRACE mg/dL (NEGATIVE); LEUKOCYTE ESTERASE,URINE NEGATIVE (NEGATIVE); NITRITE,URINE NEGATIVE (NEGATIVE); PROTEIN,URINE NEGATIVE (NEGATIVE); URINE SPECIFIC GRAVITY 1.018; UROBILINOGEN,URINE NEGATIVE mg/dL (<2.0)
--- NOTE | 2019-07-14 16:18 | RADIOLOGY REPORT (SQ) ---
EXAM DESCRIPTION: WRIST LEFT 3 VIEWS COMPLETED DATE/TIME: 07/14/2019 4:06 pm REASON FOR STUDY: Injured left wrist in fall COMPARISON: 07/14/2019 NUMBER OF VIEWS: Three views. TECHNIQUE: AP, lateral, and oblique radiographic images acquired of the left wrist. LIMITATIONS: None. FINDINGS: MINERALIZATION: Decreased BONES: No acute fracture or dislocation. No worrisome bone lesions. Normal alignment. Mild degener ative change at the 1st and 2nd carpometacarpal joint with joint space loss, subchondral sclerosis an d osteophytosis. SOFT TISSUES: No soft tissue swelling. No foreign body. OTHER: No other significant finding. IMPRESSION: No evidence of acute bony abnormality. Decreased mineralization with degenerative changes greatest at the 1st carpometacarpal joint. TECHNICAL DOCUMENTATION: JOB ID: [id number] [employer]- All Rights Reserved Reading location - IP/workstation name: [email or web address]
--- NOTE | 2019-07-14 16:24 | ER Document Report ---
ED Fall - General Chief Complaint: Fall Injury Stated Complaint: RIB INJURY Time Seen by Provider: 07/14/19 13:25 Primary Care Provider: EROS VENCES INSURANCE CLERK, INSURANCE CLERK [Primary Care Provider] - Follow up as needed Notes: Patient fell last evening and apparently laid on the floor for 4 to 5 hours and unable to get herself up. She eventually was able to get up enough to call for help. Patient is complaining of pain in her right anterior ribs and in her left wrist. Her son is here and he says the patient lives alone. He visited her last night and left her place about 6 PM and no one has seen her since then. She is not eating or drinking fluids sufficiently. She was seen here 5 days ago and was diagnosed with a UTI and put on antibiotic. Son says that someone from here called a day or 2 ago and said that they had antibiotic that was prescribed was not sufficient and she was changed to a second antibiotic. Patient has a history of some dementia, kidney insufficiency, recent stents in her legs on June 28 in [place]. She has a subsequent ulcer sore on the heel of her left foot. This sore is bandaged changed every week by visiting home health nurse and is showing improvement, according to her son. Patient had a fractured hip repaired in November in this hospital. TRAVEL OUTSIDE OF THE [place] IN LAST 30 DAYS: No - Related data Allergies/Adverse Reactions: Penicillins Allergy (Verified 06/20/16 10:52) Past Medical History - Social History Smoking Status: Former Smoker Frequency of alcohol use: None Drug Abuse: None Family History: Reviewed & Not Pertinent, Hypertension Patient has suicidal ideation: No Patient has homicidal ideation: No - Past Medical History Cardiac Medical History: Reports: Hx Hypertension Pulmonary Medical History: Reports: Hx Asthma, Hx COPD Neurological Medical History: Denies: Hx Cerebrovascular Accident, Hx Seizures Endocrine Medical History: Denies: Hx Diabetes Mellitus Type 1, Hx Diabetes M ellitus Type 2, Hx Hyperthyroidism, Hx Hypothyroidism Renal/ Medical History: Reports: Hx Renal Insufficiency Musculoskeletal Medical History: Reports Hx Arthritis, Denies Hx Fibromyalgia Psychiatric Medical History: Reports: Hx Dementia Past Surgical History: Reports: Hx Appendectomy, Hx Cholecystectomy, Hx Hysterectomy - Immunizations Hx Diphtheria, Pertussis, Tetanus Vaccination: Yes Review of Systems - Review of Systems Notes: REVIEW OF SYSTEMS: CONSTITUTIONAL : Denies fever. Patient reportedly either passed out and had a syncopal episode or fell for some unknown reason. There were no witnesses or anyone else in the household. Patient does not remember what happened. EENT: Denies eye, ear, nose or mouth or throat pain or other symptoms. CARDIOVASCULAR: Denies chest pain. RESPIRATORY: Denies cough, chest congestion, or shortness of breath. GASTROINTESTINAL: Denies abdominal pain or nausea, vomiting, or diarrhea. GENITOURINARY: Denies difficulty or painful urinating, urinary frequency, blood in urine. MUSCULOSKELETAL: Denies back or neck pain. Denies joint pain or swelling. SKIN: Denies rash or skin lesions. NEUROLOGICAL: See HPI.. Denies headache. Denies sensory loss or motor deficits. ALL OTHER SYSTEMS REVIEWED AND NEGATIVE. Physical Exam - Vital signs Vitals: Temp Pulse Resp BP Pulse Ox 97.4 F 71 18 140/42 H 93 07/14/19 12:48 07/14/19 12:48 07/14/19 12:48 07/14/19 12:48 07/14/19 12:48 Interpretation: Normal Notes: PHYSICAL EXAMINATION: GENERAL: Elderly appearing female holding her hands over the right anterior rib region as if in pain and so the ribs do not move. Vital signs are all normal. HEAD: Atraumatic, normocephalic. EYES: Pupils equal round and reactive to light, extraocular movements intact. ENT: oropharynx clear without exudates. Moist mucous membranes. NECK: Normal range of motion, supple. LUNGS: Breath sounds clear and equal bilaterally. Extremely tender to press on the anterior mid and lower right ribs. HEART: Regular rate and rhythm without murmurs. ABDOMEN: Soft, nontender. No guarding or rebound. No masses. Rectal exam reveals stool which appears to be green in color, but it is testing positive for occult blood. BACK: No tenderness throughout entire back. EXTREMITIES: Normal range of motion without pain. Left foot is bandaged over the heel. NEUROLOGICAL: Normal speech, unable to stand or walk. Grossly normal sensory, motor, and reflex exams. Awake, seems to understand what is being said to her and responds to questions, although she stays in the same position holding her anterior chest with her hands. SKIN: Warm, dry, no rashes. Course - Re-evaluation Re-evalutation: 07/14/19 16:57 A John catheter was placed in the patient and there was no urine in the bladd er. After a rather extended weight of a couple of hours, there was a very small amount of urine produced, about 25 mL, according to the nurse. This was sent for lab analysis. That urine was normal. Small amount of ketones present. Patient's hemoglobin today is 9.8 and it was 12.7 just 4 days ago when the patient was seen here. There is no reported blood loss anywhere that the patient or family indicates. Rectal exam, was performed and no gross blood present and no bleeding noted. And stool actually look on a green in color although it did test positive for occult blood. - Vital Signs Vital signs: Temp Pulse Resp BP Pulse Ox 97.4 F 71 18 140/42 H 93 07/14/19 12:48 07/14/19 12:48 07/14/19 12:48 07/14/19 12:48 07/14/19 12:48 - Laboratory Result Diagrams: 07/14/19 13:05 07/14/19 13:05 Laboratory results interpreted by me: 07/14/19 07/14/19 07/14/19 13:05 13:05 15:50 RBC 2.93 L Hgb 9.8 L Hct 29.3 L MCV 100 H RDW 15.6 H Lymph % (Auto) 10.1 L Chloride 112 H Carbon Dioxide 21 L BUN 21 H Est GFR ( Amer) 53 L Est GFR (MDRD) Non-Af 44 L Total Protein 5.7 L Urine Ketones TRACE H - Diagnostic Test Radiology reviewed: Reports reviewed - Chest x-ray read by radiology shows cardiomegaly and emphysema but no other abnormalities and no acute processes. - EKG Interpretation by Me EKG shows normal: Sinus rhythm Rate: Normal Rhythm: NSR Additional EKG results interpreted by me: 07/14/19 16:59 EKG shows low voltage, but otherwise is a normal EKG. Discharge - Discharge Clinical Impression: Fall, Syncope, Dehydration, Anemia Condition: Stable Disposition: ADMITTED INPATIENT Admitting Provider: Myke Rowland hospitalist Unit Admitted: IMCU Referrals: EROS VENCES INSURANCE CLERK, INSURANCE CLERK [Primary Care Provider] - Follow up as needed
[2019-07-14] MEDS ORDERED: ONDANSETRON HCL INJ/PF 4 MG/2 ML SDV IV PRN (17:04)
[2019-07-14] MEDS ORDERED: ALBUTEROL SULFATE 0.083% NEB 2.5 MG/3 ML AMPUL NEB PRN (17:15)
--- NOTE | 2019-07-14 17:16 | Progress Note Acknowledgement ---
Progress Note Acknowledgement Progess Note Acknowledgement: I, the undersigned member of the medical staff with appropriate privileges and with supervisory authority over [Myke Rowland], a dependent practice allied health professional, acknowledge that I have reviewed the progress notes entered on this patient, and in my professional judgment believe that the assessment made and/or any care evidenced was appropriate
--- NOTE | 2019-07-14 17:26 | PDOC H&P ---
History of Present Illness Admission Date/PCP: July 14, 2019 EROS VENCES NP Patient complains of: Right rib pain History of Present Illness: ARPIT ARITA is a 78 year old female who presents to the ER after having a fall/possible syncopal episode last evening. Patient may have laid on the floor up to 4 hours. Patient states pain in her right ribs secondary to this fall. Chest x-ray was normal on obtaining CT at this time. Patient was also found to be anemic. Patient was here several days ago had a hemoglobin of 12.7 today is 9.3. Patient also had heme positive stool in the ER. Patient very poor historian. No family at bedside. No treatment prior to arrival. All activities elevating factor. Past Medical History Cardiac Medical History: Reports: Hypertension Denies: Atrial Fibrillation, Coronary Artery Disease, DVT, Hyperlipidema, Pulmonary Embolism Pulmonary Medical History: Reports: Asthma, Chronic Obstructive Pulmonary Disease (COPD) Neurological Medical History: Denies: Seizures Endocrine Medical History: Denies: Diabetes Mellitus Type 1, Diabetes Mellitus Type 2, Hyperthyroidism, Hypothyroidism GI Medical History: Denies: Cirrhosis, Hepatitis Musculoskeltal Medical History: Reports: Arthritis Denies: Fibromyalgia Skin Medical History: Denies: Eczema, Psoriasis Psychiatric Medical History: Reports: Dementia Hematology: Reports: Anemia Denies: Bleeding Tendencies Past Surgical History Past Surgical History: Reports: Appendectomy, Cholecystectomy, Hysterectomy Social History Information Source: Patient Lives with: Alone Smoking Status: Former Smoker Frequency of Alcohol Use: None Hx Recreational Drug Use: No Drugs: None Hx Prescription Drug Abuse: No - Advance Directive Resuscitation Status: Full Code Family History Family History: Hypertension Parental Family History Reviewed: Yes Children Family History Reviewed: Yes Sibling(s) Family History Reviewed.: Yes Medication/Allergy Home Medications: Albuterol Sulfate [Ventolin Hfa] 1 - 2 puff IH Q4 PRN 01/05/16 Alendronate Sodium [Binosto] 70 mg PO TU@1000 01/05/16 Budesonide/Formoterol Fumarate [Symbicort HFA 160-4.5 mcg Inhaler 6 gm] 2 puff IH BID 06/20/16 Donepezil HCl [Aricept] 10 mg PO DAILY 06/20/16 Aspirin [Ecotrin 81 mg EC Tablet] 81 mg PO DAILY #30 tabec 06/22/16 Calcium Carbonate/Vitamin D3 [Calcium 600 + Vit D Tablet] 1 tab PO DAILY 12/18/18 Cholecalciferol (Vitamin D3) [Vitamin D3 5000 unit Capsule] 5,000 unit PO DAILY 12/18/18 Cyanocobalamin (Vitamin B-12) [B-12] 1,000 mcg PO DAILY 12/18/18 Cyproheptadine HCl 4 mg PO BID 12/18/18 Ferrous Sulfate [Iron] 325 mg PO DAILY 12/18/18 Fluoxetine HCl [Prozac 20 mg Capsule] 20 mg PO DAILY 12/18/18 Folic Acid 0.8 mg PO DAILY 12/18/18 Memantine HCl [Namenda Xr] 28 mg PO DAILY 12/18/18 Multivitamin [Multiple Vitamins] 1 each PO DAILY 12/18/18 Trazodone HCl [Desyrel 50 mg Tablet] 50 mg PO QHS 12/18/18 Acetaminophen [Tylenol 325 mg Tablet] 650 mg PO Q4HP PRN tablet 12/24/18 Losartan Potassium [Cozaar 50 mg Tablet] 50 mg PO DAILY #30 tablet 12/24/18 Nicotine [Nicoderm 21 mg/24 Hr Transderm Patch] 1 each TD DAILYP PRN #30 patch.td24 12/24/18 Oxycodone HCl/Acetaminophen [Percocet 5-325 mg Tablet] 1 tab PO Q4HP PRN #18 tablet 12/24/18 Vit/Dha [ Multi + Dha Capsule] 1 cap PO DAILY #30 capsule 12/24/18 Sennosides/Docusate 8.6-50 mg [Senna Plus Tablet] 1 each PO BID tablet 12/24/18 Tamsulosin HCl [Flomax 0.4 mg Cap.sr] 0.4 mg PO PCSUPPER #30 cap.sr.24h 12/24/18 Tiotropium [place] [Spiriva Handihaler 5 Cap/Kit (18 Mcg/Cap)] 1 cap IH DAILY #1 kit 12/24/18 Carvedilol [Coreg] 1 tab PO Q12 #60 tab 12/28/18 Furosemide [Lasix] 10 mg PO DAILY #14 tablet 12/28/18 Ipratropium [place] [Atrovent 0.02% Neb 0.5 mg/2.5 ml Ampul] 0.5 mg NEB RTQ6HP PRN #60 vial.neb 12/28/18 Levalbuterol HCl [Xopenex Neb 1.25 mg/3 ml Ampul] 1.25 mg NEB RTQ6HP PRN #60 vial.neb 12/28/18 Prednisone [Deltasone 20 mg Tablet] 60 mg PO DAILY #15 tablet 12/28/18 Cephalexin Monohydrate [Keflex 500 mg Capsule] 500 mg PO TID 10 Days capsule 07/10/19 Allergies/Adverse Reactions: Penicillins Allergy (Verified 06/20/16 10:52) Review of Systems Constitutional: PRESENT: weakness Eyes: ABSENT: visual disturbances Ears: ABSENT: hearing changes Cardiovascular: ABSENT: chest pain, dyspnea on exertion, edema, orthropnea, palpitations Respiratory: ABSENT: cough, hemoptysis Gastrointestinal: ABSENT: abdominal pain, constipation, diarrhea, hematemesis, hematochezia, nausea, vomiting Genitourinary: ABSENT: dysuria, hematuria Musculoskeletal: ABSENT: joint swelling Integumentary: ABSENT: rash, wounds Neurological: PRESENT: vertigo, weakness. ABSENT: abnormal gait, abnormal speech, confusion, dizziness, focal weakness, syncope Psychiatric: ABSENT: anxiety, depression, homidical ideation, suicidal ideation Endocrine: ABSENT: cold intolerance, heat intolerance, polydipsia, polyuria Hematologic/Lymphatic: ABSENT: easy bleeding, easy bruising Physical Exam Vital Signs: Temp Pulse Resp BP Pulse Ox 97.4 F 71 18 140/42 H 93 07/14/19 12:48 07/14/19 12:48 07/14/19 12:48 07/14/19 12:48 07/14/19 12:48 Intake & Output 07/13/19 07/14/19 07/15/19 06:59 06:59 06:59 Intake Total 500 Balance 500 Weight 38.7 kg General appearance: PRESENT: no acute distress, well-developed, well-nourished Head exam: PRESENT: atraumatic, normocephalic Eye exam: PRESENT: conjunctiva pink, EOMI, PERRLA. ABSENT: scleral icterus Ear exam: PRESENT: normal external ear exam Mouth exam: PRESENT: moist, tongue midline Neck exam: ABSENT: carotid bruit, JVD, lymphadenopathy, thyromegaly Respiratory exam: PRESENT: clear to auscultation raeann. ABSENT: rales, rhonchi, wheezes Cardiovascular exam: PRESENT: RRR. ABSENT: diastolic murmur, rubs, systolic murmur Pulses: PRESENT: normal dorsalis pedis pul Vascular exam: PRESENT: normal capillary refill GI/Abdominal exam: PRESENT: normal bowel sounds, soft, other - Heme positive stool. ABSENT: distended, guarding, mass, organolmegaly, rebound, tenderness Rectal exam: PRESENT: heme (+) stool Extremities exam: PRESENT: full ROM. ABSENT: calf tenderness, clubbing, pedal edema Musculoskeletal exam: PRESENT: other - Right rib pain no gross findings Neurological exam: PRESENT: alert, awake, other - Pleasantly confused Psychiatric exam: PRESENT: other - Pleasant confused but appropriate Skin exam: PRESENT: dry, intact, warm. ABSENT: cyanosis, rash Results Laboratory Results: 07/14/19 13:05 07/14/19 13:05 07/14/19 07/14/19 07/14/19 13:05 13:05 15:50 WBC 7.7 RBC 2.93 L Hgb 9.8 L Hct 29.3 L MCV 100 H MCH 33.4 MCHC 33.5 RDW 15.6 H Plt Count 318 Seg Neutrophils % 75.6 Sodium 141.0 Potassium 4.5 Chloride 112 H Carbon Dioxide 21 L Anion Gap 8 BUN 21 H Creatinine 1.19 Est GFR ( Amer) 53 L Glucose 76 Calcium 9.5 Total Bilirubin 0.5 AST 34 Alkaline Phosphatase 102 Total Protein 5.7 L Albumin 3.5 Urine Color YELLOW Urine Appearance CLEAR Urine pH 5.0 Ur Specific [place] 1.018 Urine Protein NEGATIVE Urine Glucose (UA) NEGATIVE Urine Ketones TRACE H Urine Blood NEGATIVE Urine Nitrite NEGATIVE Ur Leukocyte Esterase NEGATIVE Urine WBC (Auto) 2 Urine RBC (Auto) 1 07/14/19 07/14/19 13:05 13:05 Creatine Kinase 38 CK-MB (CK-2) 0.73 Troponin I < 0.012 Impressions: Chest X-Ray 07/14/19 13:29 IMPRESSION: Emphysema and cardiomegaly without acute abnormality of the lungs. No focal airspace opacity. Wrist X-Ray 07/14/19 15:53 IMPRESSION: No evidence of acute bony abnormality. Decreased mineralization with degenerative changes greatest at the 1st carpometacarpal joint. Assessment and Plan - Diagnosis (1) Anemia Is this a current diagnosis for this admission?: Yes Plan: July 14, 2019-patient was seen in the ER 4 days ago had a hemoglobin of 12.7 at that time. Patient presents today with a fall was found to have a hemoglobin of 9.3 and she has heme positive on rectal exam. At this time placed on IMCU. N.p.o. Surgical consultation for possible endoscopy/colonoscopy. I put patient on Protonix 40 mg IV push twice daily. Await further recommendations per surgery (2) Syncope Is this a current diagnosis for this admission?: Yes Plan: July 14, 2019-possible syncopal episode. Serial troponins, echocardiogram, Dr. Saucedo consultation. Most likely not syncopal episode most likely secondary to anemia. First troponin is negative at this time. (3) Fall Is this a current diagnosis for this admission?: Yes Plan: July 14, 2019-patient did sustain a fall unknown if it was an extended amount of time on the ground or not. She does complain of right rib pain. Chest x-ray was normal will obtain a CT of her chest without contrast to rule out definitively if patient has fractures. Will give patient Dilaudid 0.5 g IV every 3 hours as needed for pain. Adjust as needed for patient comfort (4) Hypertension Qualifiers: Hypertension type: essential hypertension Qualified Code(s): I10 - Essential (primary) hypertension Is this a current diagnosis for this admission?: Yes Plan: July 14, 2019-as patient is n.p.o. at this time will give hydralazine 10 mg IV push every 4 hours as needed systolic above 160 (5) Dementia Qualifiers: Dementia type: Alzheimer's disease Dementia behavioral disturbance: without behavioral disturbance Is this a current diagnosis for this admission?: Yes Plan: July 14, 2019-patient is n.p.o. at this time will remit resume Namenda as soon as possible. (6) Pain Is this a current diagnosis for this admission?: Yes Plan: July 14, 2019-Dilaudid 0.5 mg IV every 3 hours PRN pain (7) Chronic obstructive pulmonary disease Qualifiers: COPD type: unspecified COPD Qualified Code(s): J44.9 - Chronic obstructive pulmonary disease, unspecified Is this a current diagnosis for this admission?: Yes Plan: July 14, 2019-albuterol nebs every 4 hours as needed. As soon as patient's med rec is complete I will continue home medications include budesonide at that time. - Time Time Spent with patient: 35 or more minutes - Inpatient Certification Based on my medical assessment, after consideration of the patient's comorbidities, presenting symptoms, or acuity I expect that the services needed warrant INPATIENT care.: Yes I certify that my determination is in accordance with my understanding of Medicare's requirements for reasonable and necessary INPATIENT services [42 CFR 412.3e].: Yes Medical Necessity: Other - IV fluids, possible colonoscopy/endoscopy, cardiac work-up
--- NOTE | 2019-07-14 17:31 | EKG REPORT ---
SEVERITY:- OTHERWISE NORMAL ECG - SINUS RHYTHM LOW VOLTAGE IN FRONTAL LEADS : Confirmed by: Julianna Saucedo MD 14-Jul-2019 17:31:00
[2019-07-14] MEDS: NORMAL SALINE 1000 ML 1,000 ML IV PRN (18:42)
[2019-07-14 19:03] LABS: HEMATOCRIT 29.3 % (36.0-47.0); HEMOGLOBIN 9.7 g/dL (12.0-15.5); MEAN CORPUSCULAR HGB CONC 33.1 g/dL (32.0-36.0); MEAN CORPUSCULAR VOLUME 100 fl (80-97); PLATELET COUNT 310 10^3/uL (150-450); RED BLOOD COUNT 2.94 10^6/uL (3.72-5.28); RED CELL DISTRIBUTION WIDTH 15.3 % (11.5-14.0); WHITE BLOOD COUNT 6.8 10^3/uL (4.0-10.5)
--- NOTE | 2019-07-14 19:22 | RADIOLOGY REPORT (SQ) ---
EXAM DESCRIPTION: CT CHEST WITHOUT COMPLETED DATE/TIME: 07/14/2019 6:28 pm REASON FOR STUDY: FALL COMPARISON: CT angio chest 06/20/2016, 12/24/2018 Chest films 07/14/2019, 07/10/2019 TECHNIQUE: CT scan performed of the chest without intravenous contrast. Images reviewed with lung, soft tissue and bone windows. Reconstructed coronal and sagittal MPR images reviewed. All images st ored on PACS. All CT scanners at this facility use dose modulation, iterative reconstruction, and/or weight based d osing when appropriate to reduce radiation dose to as low as reasonably achievable (ALARA). [facility]: Dose Right [facility]: CareDose [facility]: Dose Right [facility]: Teradose 4D [facility]: [employer] RADIATION DOSE: CT Rad equipment meets quality standard of care and radiation dose reduction techniq ues were employed. CTDIvol: 4.1 mGy. DLP: 171 mGy-cm. mGy. LIMITATIONS: No technical limitations. FINDINGS: LUNGS AND PLEURA: End-stage appearance of obstructive lung disease no acute infiltrates. No pleural effusion or pneumothorax. Minimal dependent atelectasis left posterior costophrenic sulcu s HILAR AND MEDIASTINAL STRUCTURES: No identified masses or abnormal nodes. No obvious aneurysm. HEART AND VASCULAR STRUCTURES: No aneurysm. No pericardial effusion. Calcified coronary arteries UPPER ABDOMEN: Nonobstructive calcifications in right and left upper pole kidney. 1 cm cyst right up per pole kidney THYROID AND OTHER SOFT TISSUES: No masses. No adenopathy. BONES: Osteoporotic. No acute displaced rib fracture. No gross thoracic spine acute compression def ormity. HARDWARE: None in the chest. OTHER: No other significant findings. IMPRESSION: No acute findings TECHNICAL DOCUMENTATION: JOB ID: [id number] Quality ID # [id number]: Final reports with documentation of one or more dose reduction techniques (e.g., Au tomated exposure control, adjustment of the mA and/or kV according to patient size, use of iterative reconstruction technique) 2010 [employer]- All Rights Reserved Reading location - IP/workstation name: [email or web address]
[2019-07-14] MEDS: PANTOPRAZOLE SODIUM 40 MG VIAL IV SCH (21:42)
[2019-07-15 01:18] LABS: HEMATOCRIT 28.6 % (36.0-47.0); HEMOGLOBIN 9.3 g/dL (12.0-15.5); MEAN CORPUSCULAR HEMOGLOBIN 32.6 pg (27.0-33.4); MEAN CORPUSCULAR HGB CONC 32.5 g/dL (32.0-36.0); MEAN CORPUSCULAR VOLUME 100 fl (80-97); PLATELET COUNT 310 10^3/uL (150-450); RED BLOOD COUNT 2.85 10^6/uL (3.72-5.28); WHITE BLOOD COUNT 7.6 10^3/uL (4.0-10.5)
[2019-07-15] MEDS: NORMAL SALINE 1000 ML 1,000 ML IV PRN (04:56)
[2019-07-15] MEDS: HYDROMORPHONE HCL INJ/PF 2 MG/ML AMPULE IV PRN ×4 (05:08→21:48)
[2019-07-15 07:47] LABS: ABSOLUTE BASOPHILS # (AUTO) 0.1 10^3/uL (0.0-0.2); ABSOLUTE EOSINOPHILS # (AUTO) 0.4 10^3/uL (0.0-0.6); ABSOLUTE MONOCYTES (AUTO) 0.8 10^3/uL (0.1-1.4); ABSOLUTE NEUT (AUTO) 5.8 10^3/uL (1.7-8.2); BASOPHILS % (AUTO) 1.4 % (0-2); EOSINOPHILS % (AUTO) 4.4 % (0-6); HEMATOCRIT 26.1 % (36.0-47.0); HEMOGLOBIN 8.5 g/dL (12.0-15.5); LYMPHOCYTES % (AUTO) 12.3 % (13-45); MEAN CORPUSCULAR HEMOGLOBIN 33.1 pg (27.0-33.4); MEAN CORPUSCULAR HGB CONC 32.7 g/dL (32.0-36.0); MEAN CORPUSCULAR VOLUME 101 fl (80-97); MONOCYTES % (AUTO) 9.4 % (3-13); PLATELET COUNT 298 10^3/uL (150-450); RED BLOOD COUNT 2.58 10^6/uL (3.72-5.28); RED CELL DISTRIBUTION WIDTH 15.3 % (11.5-14.0); SEGMENTED NEUTROPHILS % (AUTO) 72.5 % (42-78); TOTAL CELLS COUNTED % (AUTO) 100 %
[2019-07-15 08:16] LABS: ANION GAP 9 (5-19); BLOOD UREA NITROGEN 17 mg/dL (7-20); CALCIUM 8.5 mg/dL (8.4-10.2); CARBON DIOXIDE 16 mmol/L (22-30); CHLORIDE 116 mmol/L (98-107); POTASSIUM 4.3 mmol/L (3.6-5.0)
[2019-07-15 08:23] LABS: GLUCOSE 48 mg/dL (75-110)
[2019-07-15] MEDS ORDERED: DEXTROSE 50%-WATER 25 GM/50 ML DISP.SYRIN IV ONE (08:27)
[2019-07-15] MEDS: DEXTROSE 50%-WATER SYRINGE 12.5 GM/25 ML DOSE IV PRN ×2 (08:29→11:18)
[2019-07-15] MEDS: PANTOPRAZOLE SODIUM 40 MG VIAL IV SCH ×2 (09:28→21:39)
[2019-07-15] MEDS ORDERED: GLUCAGON,HUMAN RECOMB 1 MG INJ IM PRN (09:30)
[2019-07-15] MEDS ORDERED: DEXTROSE 40% GEL 15 GM TUBE X 2 PO PRN (09:30)
[2019-07-15] MEDS ORDERED: DEXTROSE 40% GEL 15 GM TUBE PO PRN (09:30)
[2019-07-15] MEDS ORDERED: DEXTROSE 50%-WATER SYRINGE 25 GM/50 ML DOSE IV PRN (09:30)
[2019-07-15] MEDS ORDERED: DEXTROSE 5%-1/2 NORMAL SALINE 500 ML IV PRN (11:20)
[2019-07-15] MEDS: DEXTROSE 5%-1/2 NORMAL SALINE 1,000 ML IV PRN ×2 (11:26→21:41)
--- NOTE | 2019-07-15 12:23 | PDOC PROGRESS REPORT ---
Subjective Progress Note for:: 07/15/19 Subjective:: July 15 2019-continue rib pain. Reason For Visit: ANEMIA,SYNCOPE,FALL Physical Exam Vital Signs: Temp Pulse Resp BP Pulse Ox 98.2 F 57 L 18 131/41 H 94 07/15/19 08:01 07/15/19 08:01 07/15/19 08:01 07/15/19 08:01 07/15/19 08:01 Intake & Output 07/14/19 07/15/19 07/16/19 06:59 06:59 06:59 Intake Total 1500 652 Output Total 650 Balance 850 652 Weight 38 kg General appearance: PRESENT: no acute distress, well-developed, well-nourished Neck exam: ABSENT: carotid bruit, JVD, lymphadenopathy, thyromegaly Respiratory exam: PRESENT: clear to auscultation raeann. ABSENT: rales, rhonchi, wheezes Cardiovascular exam: PRESENT: RRR. ABSENT: diastolic murmur, rubs, systolic murmur Pulses: PRESENT: normal dorsalis pedis pul Vascular exam: PRESENT: normal capillary refill GI/Abdominal exam: PRESENT: normal bowel sounds, soft. ABSENT: distended, guarding, mass, organolmegaly, rebound, tenderness Extremities exam: PRESENT: full ROM. ABSENT: calf tenderness, clubbing, pedal edema Neurological exam: PRESENT: alert, awake, oriented to person, oriented to place, oriented to time, oriented to situation, CN II-XII grossly intact. ABSENT: motor sensory deficit Psychiatric exam: PRESENT: appropriate affect, normal mood. ABSENT: homicidal ideation, suicidal ideation Skin exam: PRESENT: dry, intact, warm. ABSENT: cyanosis, rash Results Laboratory Results: 07/15/19 06:54 07/15/19 06:54 07/14/19 07/14/19 07/14/19 13:05 13:05 15:50 WBC 7.7 RBC 2.93 L Hgb 9.8 L Hct 29.3 L MCV 100 H MCH 33.4 MCHC 33.5 RDW 15.6 H Plt Count 318 Seg Neutrophils % 75.6 Sodium 141.0 Potassium 4.5 Chloride 112 H Carbon Dioxide 21 L Anion Gap 8 BUN 21 H Creatinine 1.19 Est GFR ( Amer) 53 L Glucose 76 Calcium 9.5 Total Bilirubin 0.5 AST 34 Alkaline Phosphatase 102 Total Protein 5.7 L Albumin 3.5 Urine Color YELLOW Urine Appearance CLEAR Urine pH 5.0 Ur Specific [place] 1.018 Urine Protein NEGATIVE Urine Glucose (UA) NEGATIVE Urine Ketones TRACE H Urine Blood NEGATIVE Urine Nitrite NEGATIVE Ur Leukocyte Esterase NEGATIVE Urine WBC (Auto) 2 Urine RBC (Auto) 1 07/14/19 07/15/19 07/15/19 18:49 01:09 06:54 WBC 6.8 7.6 8.0 RBC 2.94 L 2.85 L 2.58 L Hgb 9.7 L 9.3 L 8.5 L Hct 29.3 L 28.6 L 26.1 L MCV 100 H 100 H 101 H MCH 33.0 32.6 33.1 MCHC 33.1 32.5 32.7 RDW 15.3 H 15.0 H 15.3 H Plt Count 310 310 298 Seg Neutrophils % 72.5 Sodium Potassium Chloride Carbon Dioxide Anion Gap BUN Creatinine Est GFR ( Amer) Glucose Calcium Total Bilirubin AST Alkaline Phosphatase Total Protein Albumin Urine Color Urine Appearance Urine pH Ur Specific [place] Urine Protein Urine Glucose (UA) Urine Ketones Urine Blood Urine Nitrite Ur Leukocyte Esterase Urine WBC (Auto) Urine RBC (Auto) 07/15/19 06:54 WBC RBC Hgb Hct MCV MCH MCHC RDW Plt Count Seg Neutrophils % Sodium 141.1 Potassium 4.3 Chloride 116 H Carbon Dioxide 16 L Anion Gap 9 BUN 17 Creatinine 1.09 Est GFR ( Amer) 59 L Glucose 48 L Calcium 8.5 Total Bilirubin AST Alkaline Phosphatase Total Protein Albumin Urine Color Urine Appearance Urine pH Ur Specific [place] Urine Protein Urine Glucose (UA) Urine Ketones Urine Blood Urine Nitrite Ur Leukocyte Esterase Urine WBC (Auto) Urine RBC (Auto) 07/14/19 07/14/19 07/14/19 13:05 13:05 18:49 Creatine Kinase 38 CK-MB (CK-2) 0.73 Troponin I < 0.012 < 0.012 07/15/19 07/15/19 01:09 06:54 Creatine Kinase CK-MB (CK-2) Troponin I < 0.012 < 0.012 Impressions: Chest X-Ray 07/14/19 13:29 IMPRESSION: Emphysema and cardiomegaly without acute abnormality of the lungs. No focal airspace opacity. Wrist X-Ray 07/14/19 15:53 IMPRESSION: No evidence of acute bony abnormality. Decreased mineralization with degenerative changes greatest at the 1st carpometacarpal joint. Chest CT 07/14/19 18:02 IMPRESSION: No acute findings Assessment and Plan - Diagnosis (1) Anemia Is this a current diagnosis for this admission?: Yes Plan: July 14, 2019-patient was seen in the ER 4 days ago had a hemoglobin of 12.7 at that time. Patient presents today with a fall was found to have a hemoglobin of 9.3 and she has heme positive on rectal exam. At this time placed on IMCU. N.p.o. Surgical consultation for possible endoscopy/colonoscopy. I put patient on Protonix 40 mg IV push twice daily. Await further recommendations per surgery July 15, 2019-slight decrease in heme globin 8.5. Patient has no active bleeding we can see we will continue Protonix at this time patient will go for endoscopy/colonoscopy most likely tomorrow or at least once patient is been cleared by cardiology. I have discussed this with surgery. (2) Syncope Is this a current diagnosis for this admission?: Yes Plan: July 14, 2019-possible syncopal episode. Serial troponins, echocardiogram, Dr. Saucedo consultation. Most likely not syncopal episode most likely secondary to anemia. First troponin is negative at this time. July 15, 2019-awaiting cardiology recommendations (3) Fall Is this a current diagnosis for this admission?: Yes Plan: July 14, 2019-patient did sustain a fall unknown if it was an extended amount of time on the ground or not. She does complain of right rib pain. Chest x-ray was normal will obtain a CT of her chest without contrast to rule out definitively if patient has fractures. Will give patient Dilaudid 0.5 g IV every 3 hours as needed for pain. Adjust as needed for patient comfort July 15-patient complains of continued pain in her ribs. CT of the chest was negative for any fractures. Continue PRN Dilaudid (4) Hypertension Qualifiers: Hypertension type: essential hypertension Qualified Code(s): I10 - Essential (primary) hypertension Is this a current diagnosis for this admission?: Yes Plan: July 14, 2019-as patient is n.p.o. at this time will give hydralazine 10 mg IV push every 4 hours as needed systolic above 160 July 15, 2019-stable at this time continue current therapy (5) Dementia Qualifiers: Dementia type: Alzheimer's disease Dementia behavioral disturbance: without behavioral disturbance Is this a current diagnosis for this admission?: Yes Plan: July 14, 2019-patient is n.p.o. at this time will remit resume Namenda as soon as possible. July 15 2019-n.p.o. at this time will go ahead and get patient her Namenda (6) Pain Is this a current diagnosis for this admission?: Yes Plan: July 14, 2019-Dilaudid 0.5 mg IV every 3 hours PRN pain July 15 2019-continue PRN Dilaudid (7) Chronic obstructive pulmonary disease Qualifiers: COPD type: unspecified COPD Qualified Code(s): J44.9 - Chronic obstructive pulmonary disease, unspecified Is this a current diagnosis for this admission?: Yes Plan: July 14, 2019-albuterol nebs every 4 hours as needed. As soon as patient's med rec is complete I will continue home medications include budesonide at that time. July 15 2019 continue current therapy - Time Time Spent with patient: 15-24 minutes - Inpatient Certification Based on my medical assessment, after consideration of the patient's comorbidities, presenting symptoms, or acuity I expect that the services needed warrant INPATIENT care.: Yes I certify that my determination is in accordance with my understanding of Medicare's requirements for reasonable and necessary INPATIENT services [42 CFR 412.3e].: Yes Medical Necessity: Other - IV fluids, constant monitoring, EGD and colonoscopy
[2019-07-15] MEDS: HYDRALAZINE HCL INJ/PF 20 MG/1 ML SDV IV PRN (12:47)
--- NOTE | 2019-07-15 16:05 | PDOC CONSULTATION ---
Consultation Consult Date: 07/15/19 Provider Consulted: NAOMY MUNIZ Consult reason:: anemia, heme positive stools History of Present Illness Admission Date/PCP: 07/14/19 17:38 EROS VENCES NP History of Present Illness: ARPIT ARITA is a 78 year old female, lives [place], brought to hospital after a fall at home for unspecified number of days. She has been found to be anemic (H/H= 9.8/29.3 on admission; today, her H/H= 8.5/26.1) with heme positive stools and admitted for anemia. A review of the medical records reveals that she has been anemic at [facility] since December 2018 (Hc 29). Currently she appears very cachectic, poorly nourished, weak, and a poor historian. I was consulted to sue murray EGD and colonoscopy on this patient. Past Medical History Cardiac Medical History: Reports: Hypertension Denies: Atrial Fibrillation, Coronary Artery Disease, DVT, Hyperlipidema, Pulmonary Embolism Pulmonary Medical History: Reports: Asthma, Chronic Obstructive Pulmonary Disease (COPD) Neurological Medical History: Denies: Seizures Endocrine Medical History: Denies: Diabetes Mellitus Type 1, Diabetes Mellitus Type 2, Hyperthyroidism, Hypothyroidism GI Medical History: Denies: Cirrhosis, Hepatitis Musculoskeltal Medical History: Reports: Arthritis Denies: Fibromyalgia Skin Medical History: Denies: Eczema, Psoriasis Psychiatric Medical History: Reports: Dementia, Depression Hematology: Reports: Anemia Denies: Bleeding Tendencies Past Surgical History Past Surgical History: Reports: Appendectomy, Cholecystectomy, Hysterectomy Social History Lives with: Alone Smoking Status: Former Smoker Cigarettes Packs Per Day: 1 Number of Years Smokin Last Time Smoked: 2 weeks ago Frequency of Alcohol Use: None Hx Recreational Drug Use: No Drugs: None Hx Prescription Drug Abuse: No - Advance Directive Resuscitation Status: Full Code Family History Family History: Reviewed & Not Pertinent, Hypertension Parental Family History Reviewed: No Children Family History Reviewed: No Sibling(s) Family History Reviewed.: No Medication/Allergy Home Medications: Clopidogrel Bisulfate [Plavix 75 mg Tablet] 75 mg PO DAILY 07/14/19 Donepezil HCl [Aricept] 10 mg PO QHS 07/14/19 Fluoxetine HCl [Prozac 20 mg Capsule] 20 mg PO DAILY 07/14/19 Losartan Potassium [Cozaar 25 mg Tablet] 12.5 mg PO DAILY 07/14/19 Trazodone HCl 25 mg PO QHS 07/14/19 Allergies/Adverse Reactions: Penicillins Allergy (Verified 06/20/16 10:52) Physical Exam Vital Signs: Temp Pulse Resp BP Pulse Ox 98.0 F 65 18 163/38 H 94 07/15/19 11:09 07/15/19 14:00 07/15/19 11:09 07/15/19 11:09 07/15/19 11:09 Intake & Output 07/14/19 07/15/19 07/16/19 06:59 06:59 06:59 Intake Total 1500 652 Output Total 650 Balance 850 652 Weight 38 kg General appearance: PRESENT: no acute distress, thin, other - cachectic Head exam: PRESENT: atraumatic Eye exam: PRESENT: EOMI Mouth exam: PRESENT: dry mucosa, neck supple Teeth exam: PRESENT: edentulous Respiratory exam: PRESENT: chest wall tenderness, other - tender in the right chest wall Cardiovascular exam: PRESENT: RRR GI/Abdominal exam: PRESENT: hypoactive bowel sounds, soft Rectal exam: PRESENT: deferred Extremities exam: PRESENT: full ROM Musculoskeletal exam: PRESENT: full ROM Neurological exam: PRESENT: altered, oriented to person, oriented to place, oriented to situation Psychiatric exam: PRESENT: flat affect Results Laboratory Results: 07/15/19 06:54 07/15/19 06:54 07/14/19 07/14/19 07/15/19 15:50 18:49 01:09 WBC 6.8 7.6 RBC 2.94 L 2.85 L Hgb 9.7 L 9.3 L Hct 29.3 L 28.6 L MCV 100 H 100 H MCH 33.0 32.6 MCHC 33.1 32.5 RDW 15.3 H 15.0 H Plt Count 310 310 Seg Neutrophils % Sodium Potassium Chloride Carbon Dioxide Anion Gap BUN Creatinine Est GFR ( Amer) Glucose Calcium Urine Color YELLOW Urine Appearance CLEAR Urine pH 5.0 Ur Specific [place] 1.018 Urine Protein NEGATIVE Urine Glucose (UA) NEGATIVE Urine Ketones TRACE H Urine Blood NEGATIVE Urine Nitrite NEGATIVE Ur Leukocyte Esterase NEGATIVE Urine WBC (Auto) 2 Urine RBC (Auto) 1 07/15/19 07/15/19 06:54 06:54 WBC 8.0 RBC 2.58 L Hgb 8.5 L Hct 26.1 L MCV 101 H MCH 33.1 MCHC 32.7 RDW 15.3 H Plt Count 298 Seg Neutrophils % 72.5 Sodium 141.1 Potassium 4.3 Chloride 116 H Carbon Dioxide 16 L Anion Gap 9 BUN 17 Creatinine 1.09 Est GFR ( Amer) 59 L Glucose 48 L Calcium 8.5 Urine Color Urine Appearance Urine pH Ur Specific [place] Urine Protein Urine Glucose (UA) Urine Ketones Urine Blood Urine Nitrite Ur Leukocyte Esterase Urine WBC (Auto) Urine RBC (Auto) 07/14/19 07/14/19 07/14/19 13:05 13:05 18:49 Creatine Kinase 38 CK-MB (CK-2) 0.73 Troponin I < 0.012 < 0.012 07/15/19 07/15/19 01:09 06:54 Creatine Kinase CK-MB (CK-2) Troponin I < 0.012 < 0.012 Impressions: Chest X-Ray 07/14/19 13:29 IMPRESSION: Emphysema and cardiomegaly without acute abnormality of the lungs. No focal airspace opacity. Wrist X-Ray 07/14/19 15:53 IMPRESSION: No evidence of acute bony abnormality. Decreased mineralization with degenerative changes greatest at the 1st carpometacarpal joint. Chest CT 07/14/19 18:02 IMPRESSION: No acute findings Assessment & Plan - Diagnosis (2) Anemia Qualifiers: Anemia type: iron deficiency Iron deficiency anemia type: unspecified iron deficiency Qualified Code(s): D50.9 - Iron deficiency anemia, unspecified Is this a current diagnosis for this admission?: Yes (3) Dementia Qualifiers: Dementia type: Alzheimer's disease Dementia behavioral disturbance: without behavioral disturbance Is this a current diagnosis for this admission?: Yes - Plan Summary Plan Summary: A/ Elderly, cachectic female, who sustained a fall from home for an unspecified n umber of days anemia (H/H= 8.5/19/12 Poor general conditions as well as her mental status is affected by dementia P/ The patient is a poor candidate for any procedure at this time. Once her general conditions improve, she might undergo EGD/Colonoscopy. At this time however, a bowel prep could cause severe electrolyte shifts, which could potentially cause her demise. I will sign off.
[2019-07-15] MEDS ORDERED: ZIPRASIDONE MESYLATE INJ/PF 20 MG SDV IM PRN (16:54)
[2019-07-15] MEDS ORDERED: ZIPRASIDONE MESYLATE INJ/PF 20 MG SDV IM ONE ×2 (16:54→18:00)
[2019-07-15 18:47] LABS: HEMATOCRIT 30.8 % (36.0-47.0); MEAN CORPUSCULAR HEMOGLOBIN 33.1 pg (27.0-33.4); MEAN CORPUSCULAR HGB CONC 32.5 g/dL (32.0-36.0); MEAN CORPUSCULAR VOLUME 102 fl (80-97); PLATELET COUNT 308 10^3/uL (150-450); RED BLOOD COUNT 3.02 10^6/uL (3.72-5.28); RED CELL DISTRIBUTION WIDTH 15.1 % (11.5-14.0); WHITE BLOOD COUNT 9.1 10^3/uL (4.0-10.5)
--- NOTE | 2019-07-15 19:31 | XCELERA REPORT ---
[address] [address] Transthoracic Echocardiogram Report Name: ARPIT ARITA Age: 78 yrs Gender: Female : 1940 Patient Status: Inpatient Patient Location: [address] [place], [place] [id number] Study Date: 07/15/2019 11:37 AM Height: 62 in Weight: 83 lb BSA: 1.3 m2 Procedure: A two-dimensional transthoracic echocardiogram with color flow and Doppler was performed. Study Quality: Fair. Reason For Study: symptomatic bradycardia History: symptomatic bradycardia / MURMUR. Ordering Physician: JULIANNA QUINTANILLA Performed By: Urban Lockwood Interpretation Summary The left ventricle is normal in size. There is normal left ventricular wall thickness. LV EF is > than 65% Left ventricular systolic function is normal. Doppler measurements suggest impaired left ventricular relaxation, which is associated with grade I/IV or mild diastolic dysfunction The left ventricular wall motion is normal. There is no thrombus. No ASD ,VSD ,or PFO seen. The right ventricular systolic function is mildly reduced. The right ventricle is mildly dilated. The right atrium is normal. The left atrial size is normal. There is no vegetation seen on the mitral valve. There is no mitral valve stenosis. There is a trace to mild amount of mitral regurgitation There is no aortic valvular vegetation. There is aortic sclerosis without aortic stenosis. There is no aortic valve stenosis There is no LVOT obstruction. No aortic regurgitation is present. There is no tricuspid stenosis. There is a mild to moderate amount of tricuspid regurgitation The tricuspid valve is not well visualized secondary to technical limitations There is moderate pulmonary hypertension by echo RVSP is 53 to 58 mm of Hg , with RA mean of 5 to 10. There is no pulmonic valvular stenosis. There is a trace amount of pulmonic regurgitation The aortic root is normal size. The inferior vena cava appeared normal and decreased > 50% with respiration (RAP 5-10 mmHg) There is no pericardial effusion. MMode/2D Measurements & Calculations RVDd: 3.3 cm LVIDd: 3.5 cm FS: 36.9 % Ao root diam: 2.7 cm IVSd: 0.88 cm LVIDs: 2.2 cm EDV(Teich): Ao root area: LVPWd: 0.86 cm 49.4 ml 5.9 cm2 ESV(Teich): LA dimension: 3.1 cm 15.9 ml EF(Teich): 67.8 % LVLd ap4: 6.5 cm SV(MOD-sp4): EDV(MOD-sp4): 29.0 ml 46.0 ml LVLs ap4: 5.1 cm ESV(MOD-sp4): 17.0 ml EF(MOD-sp4): 63.0 % Doppler Measurements & Calculations MV E max juan alberto: MV P1/2t max juan alberto: Ao V2 max: LV V1 max P.3 cm/sec 102.1 cm/sec 105.3 cm/sec 4.7 mmHg MV A max juan alberto: MV P1/2t: 88.0 msec Ao max P.4 mmHgLV V1 max: 108.6 cm/sec MVA(P1/2t): 2.5 cm2 108.6 cm/sec MV E/A: 0.87 MV dec slope: 339.6 cm/sec2 MV dec time: 0.27 sec PA V2 max: TR max juan alberto: MV P1/2t-pr_phl: 81.9 cm/sec 347.5 cm/sec 88.0 msec PA max P.7 mmHgTR max P.3 mmHg Left Ventricle The left ventricle is normal in size. There is normal left ventricular wall thickness. LV EF is > than 65%. Left ventricular systolic function is normal. Doppler measurements suggest impaired left ventricular relaxation, which is associated with grade I/IV or mild diastolic dysfunction. The left ventricular wall motion is normal. There is no thrombus. No ASD ,VSD ,or PFO seen. Right Ventricle The right ventricle is not well visualized secondary to technical limitations. The right ventricle is mildly dilated. The right ventricular systolic function is mildly reduced. Atria The right atrium is normal. The left atrial size is normal. Mitral Valve There is no evidence of mitral valve prolapse. There is no vegetation seen on the mitral valve. There is no mitral valve stenosis. There is a trace to mild amount of mitral regurgitation. Aortic Valve There is no aortic valvular vegetation. There is aortic sclerosis without aortic stenosis. There is no aortic valve stenosis. There is no LVOT obstruction. No aortic regurgitation is present. Tricuspid Valve The tricuspid valve is not well visualized secondary to technical limitations. There is no tricuspid stenosis. There is a mild to moderate amount of tricuspid regurgitation. There is moderate pulmonary hypertension by echo. RVSP is 53 to 58 mm of Hg , with RA mean of 5 to 10. Pulmonic Valve There is no pulmonic valvular stenosis. There is a trace amount of pulmonic regurgitation. Great Vessels The aortic root is normal size. The inferior vena cava appeared normal and decreased > 50% with respiration (RAP 5-10 mmHg). Effusions There is no pericardial effusion. : JULIANNA QUINTANILLA > Julianna Quintanilla
[2019-07-15] MEDS: DONEPEZIL HCL 5 MG TABLET PO SCH ×2 (21:39→21:57)
[2019-07-15] MEDS ORDERED: (PENDING PHARMACY ID) (Donepezil Hcl [Aricept] 10 MG) PO SCH (22:00)
[2019-07-15 23:24] LABS: CREATINE KINASE MB 0.79 ng/mL (<4.55)
[2019-07-15 23:28] LABS: TROPONIN I < 0.012 ng/mL
[2019-07-16 05:27] LABS: ABSOLUTE BASOPHILS # (AUTO) 0.1 10^3/uL (0.0-0.2); ABSOLUTE EOSINOPHILS # (AUTO) 0.3 10^3/uL (0.0-0.6); ABSOLUTE LYMPHOCYTES (AUTO) 0.7 10^3/uL (0.5-4.7); ABSOLUTE MONOCYTES (AUTO) 0.7 10^3/uL (0.1-1.4); ABSOLUTE NEUT (AUTO) 4.8 10^3/uL (1.7-8.2); BASOPHILS % (AUTO) 1.3 % (0-2); EOSINOPHILS % (AUTO) 4.3 % (0-6); HEMOGLOBIN 9.4 g/dL (12.0-15.5); LYMPHOCYTES % (AUTO) 10.8 % (13-45); MEAN CORPUSCULAR HEMOGLOBIN 33.4 pg (27.0-33.4); MEAN CORPUSCULAR HGB CONC 33.4 g/dL (32.0-36.0); MEAN CORPUSCULAR VOLUME 100 fl (80-97); PLATELET COUNT 325 10^3/uL (150-450); RED CELL DISTRIBUTION WIDTH 14.6 % (11.5-14.0); SEGMENTED NEUTROPHILS % (AUTO) 73.6 % (42-78); TOTAL CELLS COUNTED % (AUTO) 100 %; WHITE BLOOD COUNT 6.6 10^3/uL (4.0-10.5)
[2019-07-16 05:44] LABS: ANION GAP 6 (5-19); BLOOD UREA NITROGEN 11 mg/dL (7-20); CALCIUM 8.4 mg/dL (8.4-10.2); CARBON DIOXIDE 21 mmol/L (22-30); CHLORIDE 112 mmol/L (98-107); CREATINE KINASE 35 U/L (30-135); GLUCOSE 117 mg/dL (75-110); POTASSIUM 3.7 mmol/L (3.6-5.0)
[2019-07-16 05:57] LABS: CREATINE KINASE MB 0.85 ng/mL (<4.55)
[2019-07-16 06:08] LABS: TROPONIN I < 0.012 ng/mL
[2019-07-16] MEDS: DEXTROSE 5%-1/2 NORMAL SALINE 1,000 ML IV PRN (07:52)
[2019-07-16] MEDS: HYDRALAZINE HCL INJ/PF 20 MG/1 ML SDV IV PRN (07:57)
[2019-07-16] MEDS: HYDROMORPHONE HCL INJ/PF 2 MG/ML AMPULE IV PRN ×3 (08:02→23:34)
[2019-07-16] MEDS: PANTOPRAZOLE SODIUM 40 MG VIAL IV SCH ×2 (09:13→23:34)
[2019-07-16 11:02] LABS: CREATINE KINASE MB 0.81 ng/mL (<4.55)
[2019-07-16 11:04] LABS: TROPONIN I < 0.012 ng/mL
--- NOTE | 2019-07-16 12:24 | EKG REPORT ---
SEVERITY:- OTHERWISE NORMAL ECG - SINUS RHYTHM LOW VOLTAGE IN FRONTAL LEADS : Confirmed by: Julianna Saucedo MD 16-Jul-2019 12:23:45
--- NOTE | 2019-07-16 13:03 | PDOC PROGRESS REPORT ---
Subjective Progress Note for:: 07/16/19 Subjective:: July 15 2019-continue rib pain. July 16, 2019-continue rib pain Reason For Visit: ANEMIA,SYNCOPE,FALL Physical Exam Vital Signs: Temp Pulse Resp BP Pulse Ox 97.3 F 64 17 162/49 H 96 07/16/19 07:53 07/16/19 07:53 07/16/19 07:53 07/16/19 07:53 07/16/19 07:53 Intake & Output 07/15/19 07/16/19 07/17/19 06:59 06:59 06:59 Intake Total 1500 1652 1568 Output Total 650 600 300 Balance 850 1052 1268 Weight 38 kg 40.7 kg General appearance: PRESENT: no acute distress, well-developed, well-nourished Neck exam: ABSENT: carotid bruit, JVD, lymphadenopathy, thyromegaly Respiratory exam: PRESENT: clear to auscultation raeann. ABSENT: rales, rhonchi, wheezes Cardiovascular exam: PRESENT: RRR. ABSENT: diastolic murmur, rubs, systolic murmur Pulses: PRESENT: normal dorsalis pedis pul Vascular exam: PRESENT: normal capillary refill GI/Abdominal exam: PRESENT: normal bowel sounds, soft. ABSENT: distended, guarding, mass, organolmegaly, rebound, tenderness Extremities exam: PRESENT: full ROM. ABSENT: calf tenderness, clubbing, pedal edema Neurological exam: PRESENT: alert, awake, oriented to person, oriented to place, oriented to time, oriented to situation, CN II-XII grossly intact. ABSENT: motor sensory deficit Psychiatric exam: PRESENT: appropriate affect, normal mood. ABSENT: homicidal ideation, suicidal ideation Skin exam: PRESENT: dry, intact, warm. ABSENT: cyanosis, rash Results Laboratory Results: 07/16/19 04:19 07/16/19 04:19 07/15/19 07/16/19 07/16/19 18:33 04:19 04:19 WBC 9.1 6.6 RBC 3.02 L 2.80 L Hgb 10.0 L 9.4 L Hct 30.8 L 28.0 L MCV 102 H 100 H MCH 33.1 33.4 MCHC 32.5 33.4 RDW 15.1 H 14.6 H Plt Count 308 325 Seg Neutrophils % 73.6 Sodium 139.2 Potassium 3.7 Chloride 112 H Carbon Dioxide 21 L Anion Gap 6 BUN 11 Creatinine 1.02 Est GFR ( Amer) > 60 Glucose 117 H Calcium 8.4 07/14/19 07/14/19 07/14/19 13:05 13:05 18:49 Creatine Kinase 38 CK-MB (CK-2) 0.73 Troponin I < 0.012 < 0.012 07/15/19 07/15/19 07/15/19 01:09 06:54 22:46 Creatine Kinase 37 CK-MB (CK-2) Troponin I < 0.012 < 0.012 07/15/19 07/16/19 07/16/19 22:46 04:19 04:19 Creatine Kinase 35 CK-MB (CK-2) 0.79 0.85 Troponin I < 0.012 < 0.012 07/16/19 07/16/19 10:21 10:21 Creatine Kinase 38 CK-MB (CK-2) 0.81 Troponin I < 0.012 Impressions: Chest X-Ray 07/14/19 13:29 IMPRESSION: Emphysema and cardiomegaly without acute abnormality of the lungs. No focal airspace opacity. Wrist X-Ray 07/14/19 15:53 IMPRESSION: No evidence of acute bony abnormality. Decreased mineralization with degenerative changes greatest at the 1st carpomet acarpal joint. Chest CT 07/14/19 18:02 IMPRESSION: No acute findings Assessment and Plan - Diagnosis (1) Anemia Qualifiers: Anemia type: iron deficiency Iron deficiency anemia type: unspecified iron deficiency Qualified Code(s): D50.9 - Iron deficiency anemia, unspecified Is this a current diagnosis for this admission?: Yes Plan: July 14, 2019-patient was seen in the ER 4 days ago had a hemoglobin of 12.7 at that time. Patient presents today with a fall was found to have a hemoglobin of 9.3 and she has heme positive on rectal exam. At this time placed on IMCU. N.p.o. Surgical consultation for possible endoscopy/colonoscopy. I put patient on Protonix 40 mg IV push twice daily. Await further recommendations per surgery July 15, 2019-slight decrease in heme globin 8.5. Patient has no active bleeding we can see we will continue Protonix at this time patient will go for endoscopy/colonoscopy most likely tomorrow or at least once patient is been carlyle red by cardiology. I have discussed this with surgery. July 16, 2019-hemoglobin stable at this time. We will continue Protonix. Patient refuses endoscopy colonoscopy even if she could have the procedure. Continue to follow (2) Syncope Is this a current diagnosis for this admission?: Yes Plan: July 14, 2019-possible syncopal episode. Serial troponins, echocardiogram, Dr. Saucedo consultation. Most likely not syncopal episode most likely secondary to anemia. First troponin is negative at this time. July 15, 2019-awaiting cardiology recommendations July 16, 2019-cleared by cardiology (3) Fall Is this a current diagnosis for this admission?: Yes Plan: July 14, 2019-patient did sustain a fall unknown if it was an extended amount of time on the ground or not. She does complain of right rib pain. Chest x-ray was normal will obtain a CT of her chest without contrast to rule out definitively if patient has fractures. Will give patient Dilaudid 0.5 g IV every 3 hours as needed for pain. Adjust as needed for patient comfort July 15, 2019-patient complains of continued pain in her ribs. CT of the chest was negative for any fractures. Continue PRN Dilaudid July 16, 2019 continues to have pain in her chest after her fall. CT negative for any fractures. Continue PRN Dilaudid (4) Hypertension Qualifiers: Hypertension type: essential hypertension Qualified Code(s): I10 - Essential (primary) hypertension Is this a current diagnosis for this admission?: Yes Plan: July 14, 2019-as patient is n.p.o. at this time will give hydralazine 10 mg IV push every 4 hours as needed systolic above 160 July 15, 2019-stable at this time continue current therapy July 16, 2019-systolic 163 A suspect this mostly from pain as just left the room the patient was complained of severe pain in her chest from her fall. We will treat with PRN pain medication and give as needed hydralazine as needed. (5) Dementia Qualifiers: Dementia type: Alzheimer's disease Dementia behavioral disturbance: without behavioral disturbance Is this a current diagnosis for this admission?: Yes Plan: July 14, 2019-patient is n.p.o. at this time will remit resume Namenda as soon as possible. July 15 2019-n.p.o. at this time will go ahead and get patient her Namenda July 16, 2019-continue Namenda (6) Pain Is this a current diagnosis for this admission?: Yes Plan: July 14, 2019-Dilaudid 0.5 mg IV every 3 hours PRN pain July 15 2019-continue PRN Dilaudid July 16, 2019-continue PRN Dilaudid (7) Chronic obstructive pulmonary disease Qualifiers: COPD type: unspecified COPD Qualified Code(s): J44.9 - Chronic obstructive pulmonary disease, unspecified Is this a current diagnosis for this admission?: Yes Plan: July 14, 2019-albuterol nebs every 4 hours as needed. As soon as patient's med rec is complete I will continue home medications include budesonide at that time. July 15 2019 continue current therapy July 16, 2019-continue current therapy - Time Time Spent with patient: 15-24 minutes - Inpatient Certification Based on my medical assessment, after consideration of the patient's comorbiditi es, presenting symptoms, or acuity I expect that the services needed warrant INPATIENT care.: Yes I certify that my determination is in accordance with my understanding of [facility]'s requirements for reasonable and necessary INPATIENT services [42 CFR 412.3e].: Yes Medical Necessity: Other - IV fluids IV pain control
--- NOTE | 2019-07-16 14:54 | ADVANCED CARE ---
- Diagnosis (1) Anemia Diagnosis Current: Yes (2) Syncope Diagnosis Current: Yes (3) Fall Diagnosis Current: Yes (4) Hypertension Diagnosis Current: Yes (5) Dementia Diagnosis Current: Yes (6) Pain Diagnosis Current: Yes (7) Chronic obstructive pulmonary disease Diagnosis Current: Yes Attendance: Myself patient patient son and nurse Resuscitation Status: Do Not Resuscitate Discussion: Discussed with patient and son about patient's clinical course. At this time patient is not a candidate for endoscopy or colonoscopy as she is weak and demented. Surgery Jenelle ruled her out yesterday for these procedures. Upon talking the patient as she is more awake at this time she states she does not want these procedures to start with. Son brought in her power of commonwealth attorney as well as last 5 wishes paperwork and patient does not wish to have heroic measures. At this time still up in the air about what patient wishes if she wishes to be treated or if she wishes to be made comfort measures. I will continue to talk with her and the son as appropriate. Care Planning Goals: 1-determine course of action for patient allowing patient to have as much input as possible 2-continue pain control 3-continue to encourage to eat although patient has not taken oral intake in 6 days 4-continue to discuss plan of care and make changes as appropriate based on patient and sons wishes 5-patient is a DNR Time Spent: 25 minutes
[2019-07-16] MEDS ORDERED: ZIPRASIDONE MESYLATE INJ/PF 20 MG SDV IM ONE (18:00)
[2019-07-16] MEDS: DONEPEZIL HCL 5 MG TABLET PO SCH (23:36)
[2019-07-17 05:22] LABS: ABSOLUTE BASOPHILS # (AUTO) 0.1 10^3/uL (0.0-0.2); ABSOLUTE EOSINOPHILS # (AUTO) 0.2 10^3/uL (0.0-0.6); ABSOLUTE LYMPHOCYTES (AUTO) 0.9 10^3/uL (0.5-4.7); ABSOLUTE MONOCYTES (AUTO) 0.9 10^3/uL (0.1-1.4); ABSOLUTE NEUT (AUTO) 4.6 10^3/uL (1.7-8.2); BASOPHILS % (AUTO) 1.3 % (0-2); EOSINOPHILS % (AUTO) 3.2 % (0-6); HEMATOCRIT 27.8 % (36.0-47.0); HEMOGLOBIN 9.2 g/dL (12.0-15.5); LYMPHOCYTES % (AUTO) 12.9 % (13-45); MEAN CORPUSCULAR HEMOGLOBIN 33.4 pg (27.0-33.4); MEAN CORPUSCULAR HGB CONC 33.2 g/dL (32.0-36.0); MEAN CORPUSCULAR VOLUME 101 fl (80-97); MONOCYTES % (AUTO) 13.6 % (3-13); PLATELET COUNT 311 10^3/uL (150-450); RED BLOOD COUNT 2.76 10^6/uL (3.72-5.28); RED CELL DISTRIBUTION WIDTH 14.9 % (11.5-14.0); TOTAL CELLS COUNTED % (AUTO) 100 %; WHITE BLOOD COUNT 6.7 10^3/uL (4.0-10.5)
[2019-07-17 05:51] LABS: ANION GAP 8 (5-19); BLOOD UREA NITROGEN 8 mg/dL (7-20); CALCIUM 8.7 mg/dL (8.4-10.2); CARBON DIOXIDE 19 mmol/L (22-30); CHLORIDE 114 mmol/L (98-107); GLUCOSE 114 mg/dL (75-110); POTASSIUM 3.7 mmol/L (3.6-5.0)
[2019-07-17] MEDS: DEXTROSE 5%-1/2 NORMAL SALINE 1,000 ML IV PRN ×2 (06:16→18:19)
[2019-07-17] MEDS: PANTOPRAZOLE SODIUM 40 MG VIAL IV SCH ×2 (10:07→22:04)
[2019-07-17] MEDS: HYDROMORPHONE HCL INJ/PF 2 MG/ML AMPULE IV PRN ×2 (10:08→15:37)
[2019-07-17] MEDS ORDERED: MEGESTROL ACETATE SUSP 400 MG/10 ML UDCUP PO ONE (10:24)
[2019-07-17] MEDS: MEGESTROL ACETATE SUSP 400 MG/10 ML UDCUP PO SCH (11:10)
[2019-07-17] MEDS: CHOLECALCIFEROL (D3) 1,000 UNIT (25 MCG) TABLET PO SCH (11:10)
[2019-07-17] MEDS ORDERED: IRON SUCROSE COMPLEX 300 MG in NORMAL SALINE 250 ML IV ONE (13:00)
--- NOTE | 2019-07-17 16:08 | PDOC PROGRESS REPORT ---
Subjective Progress Note for:: 07/17/19 Subjective:: This is an 8 years old female patient who does not have significant past medical history except for hypertension brought from home with chief complaint of right chest pain after she involved in accidental mechanical fall. Her work-up shows hemoglobin of 9.3 and reportedly several days ago her hemoglobin was 12.7. Her stool for occult blood is positive for heme. Patient has been evaluated by Dr. Le who states that "the patient is a poor candidate for any procedure at this time". He recommended to manage her medically and stabilizer. Reason For Visit: ANEMIA,SYNCOPE,FALL Physical Exam Vital Signs: Temp Pulse Resp BP Pulse Ox 97.7 F 82 16 141/38 H 93 07/17/19 12:01 07/17/19 14:00 07/17/19 12:01 07/17/19 12:01 07/17/19 12:01 Intake & Output 07/16/19 07/17/19 07/18/19 06:59 06:59 06:59 Intake Total 1652 2360 265 Output Total 600 2075 Balance 1052 285 265 Weight 40.7 kg 42.2 kg General appearance: PRESENT: no acute distress, thin Head exam: PRESENT: atraumatic Eye exam: PRESENT: conjunctiva pink Mouth exam: PRESENT: moist Neck exam: ABSENT: carotid bruit, JVD, lymphadenopathy, thyromegaly Respiratory exam: PRESENT: clear to auscultation raeann. ABSENT: rales, rhonchi, wheezes Cardiovascular exam: PRESENT: RRR. ABSENT: diastolic murmur, rubs, systolic murmur GI/Abdominal exam: PRESENT: normal bowel sounds, soft. ABSENT: distended, guarding, mass, organolmegaly, rebound, tenderness Neurological exam: PRESENT: alert, awake Results Laboratory Results: 07/17/19 04:37 07/17/19 04:37 07/17/19 07/17/19 04:37 04:37 WBC 6.7 RBC 2.76 L Hgb 9.2 L Hct 27.8 L MCV 101 H MCH 33.4 MCHC 33.2 RDW 14.9 H Plt Count 311 Seg Neutrophils % 69.0 Sodium 140.5 Potassium 3.7 Chloride 114 H Carbon Dioxide 19 L Anion Gap 8 BUN 8 Creatinine 1.01 Est GFR ( Amer) > 60 Glucose 114 H Calcium 8.7 07/14/19 07/14/19 07/14/19 13:05 13:05 18:49 Creatine Kinase 38 CK-MB (CK-2) 0.73 Troponin I < 0.012 < 0.012 07/15/19 07/15/19 07/15/19 01:09 06:54 22:46 Creatine Kinase 37 CK-MB (CK-2) Troponin I < 0.012 < 0.012 07/15/19 07/16/19 07/16/19 22:46 04:19 04:19 Creatine Kinase 35 CK-MB (CK-2) 0.79 0.85 Troponin I < 0.012 < 0.012 07/16/19 07/16/19 10:21 10:21 Creatine Kinase 38 CK-MB (CK-2) 0.81 Troponin I < 0.012 Impressions: Chest X-Ray 07/14/19 13:29 IMPRESSION: Emphysema and cardiomegaly without acute abnormality of the lungs. No focal airspace opacity. Wrist X-Ray 07/14/19 15:53 IMPRESSION: No evidence of acute bony abnormality. Decreased mineralization with degenerative changes greatest at the 1st carpometacarpal joint. Chest CT 07/14/19 18:02 IMPRESSION: No acute findings Assessment and Plan - Diagnosis (1) Acute blood loss anemia Is this a current diagnosis for this admission?: Yes Plan: Possible due to GI bleeding. Per Dr. Le that the patient is poor candidate for any procedure at this time. We will give her Venofer. (2) Status post fall Is this a current diagnosis for this admission?: Yes Plan: Chest x-ray is negative for rib fracture. (3) Moderate to severe malnutrition Is this a current diagnosis for this admission?: Yes Plan: Patient needs additional supplement. (4) Debility and deconditioning Is this a current diagnosis for this admission?: Yes Plan: Patient may benefit from rehab placement.
[2019-07-17] MEDS: DONEPEZIL HCL 5 MG TABLET PO SCH (22:04)
[2019-07-18] MEDS: DEXTROSE 5%-1/2 NORMAL SALINE 1,000 ML IV PRN ×3 (04:20→23:30)
[2019-07-18 05:11] LABS: HEMATOCRIT 23.7 % (36.0-47.0); HEMOGLOBIN 8.1 g/dL (12.0-15.5); MEAN CORPUSCULAR HEMOGLOBIN 33.4 pg (27.0-33.4); MEAN CORPUSCULAR VOLUME 99 fl (80-97); PLATELET COUNT 307 10^3/uL (150-450); RED BLOOD COUNT 2.41 10^6/uL (3.72-5.28); RED CELL DISTRIBUTION WIDTH 14.5 % (11.5-14.0); WHITE BLOOD COUNT 6.9 10^3/uL (4.0-10.5)
[2019-07-18] MEDS: HYDROMORPHONE HCL INJ/PF 2 MG/ML AMPULE IV PRN (07:57)
[2019-07-18] MEDS: PANTOPRAZOLE SODIUM 40 MG VIAL IV SCH ×2 (09:52→22:26)
[2019-07-18] MEDS: CHOLECALCIFEROL (D3) 1,000 UNIT (25 MCG) TABLET PO SCH (09:52)
[2019-07-18] MEDS: MULTIVITAMIN TABLET PO SCH (09:52)
[2019-07-18] MEDS: MEGESTROL ACETATE SUSP 400 MG/10 ML UDCUP PO SCH (09:52)
[2019-07-18] MEDS: FENTANYL 12 MCG/HR PATCH.TD72 TD SCH (14:56)
--- NOTE | 2019-07-18 16:04 | PDOC PROGRESS REPORT ---
Subjective Progress Note for:: 07/18/19 Subjective:: This is an 8 years old female patient who does not have significant past medical history except for hypertension brought from home with chief complaint of right chest pain after she involved in accidental mechanical fall. Her work-up shows hemoglobin of 9.3 and reportedly several days ago her hemoglobin was 12.7. Her stool for occult blood is positive for heme. Patient has been evaluated by Dr. Le who states that "the patient is a poor candidate for any procedure at this time". He recommended to manage her medically and stabilizer. 07/18/2019: Patient is today more awake alert and conversant. She is not in pain or distress. No adverse event overnight. Reason For Visit: ANEMIA,SYNCOPE,FALL Physical Exam Vital Signs: Temp Pulse Resp BP Pulse Ox 97.9 F 81 16 143/49 H 92 07/18/19 12:02 07/18/19 12:02 07/18/19 12:02 07/18/19 12:02 07/18/19 12:02 Intake & Output 07/17/19 07/18/19 07/19/19 06:59 06:59 06:59 Intake Total 2360 2702 1152 Output Total 2075 2300 1190 Balance 285 402 -38 Weight 42.2 kg 44.3 kg General appearance: PRESENT: no acute distress Head exam: PRESENT: atraumatic Eye exam: PRESENT: conjunctiva pink Neck exam: ABSENT: carotid bruit, JVD, lymphadenopathy, thyromegaly Respiratory exam: PRESENT: clear to auscultation areann. ABSENT: rales, rhonchi, wheezes Cardiovascular exam: PRESENT: RRR. ABSENT: diastolic murmur, rubs, systolic murmur GI/Abdominal exam: PRESENT: normal bowel sounds, soft. ABSENT: distended, guarding, mass, organolmegaly, rebound, tenderness Neurological exam: PRESENT: alert, awake Results Laboratory Results: 07/18/19 04:31 07/17/19 04:37 07/18/19 07/18/19 04:31 04:31 WBC 6.9 RBC 2.41 L Hgb 8.1 L Hct 23.7 L MCV 99 H MCH 33.4 MCHC 34.0 RDW 14.5 H Plt Count 307 TSH 1.15 07/14/19 07/14/19 07/14/19 13:05 13:05 18:49 Creatine Kinase 38 CK-MB (CK-2) 0.73 Troponin I < 0.012 < 0.012 07/15/19 07/15/19 07/15/19 01:09 06:54 22:46 Creatine Kinase 37 CK-MB (CK-2) Troponin I < 0.012 < 0.012 07/15/19 07/16/19 07/16/19 22:46 04:19 04:19 Creatine Kinase 35 CK-MB (CK-2) 0.79 0.85 Troponin I < 0.012 < 0.012 07/16/19 07/16/19 10:21 10:21 Creatine Kinase 38 CK-MB (CK-2) 0.81 Troponin I < 0.012 Impressions: Chest X-Ray 07/14/19 13:29 IMPRESSION: Emphysema and cardiomegaly without acute abnormality of the lungs. No focal airspace opacity. Wrist X-Ray 07/14/19 15:53 IMPRESSION: No evidence of acute bony abnormality. Decreased mineralization with degenerative changes greatest at the 1st carpomet acarpal joint. Chest CT 07/14/19 18:02 IMPRESSION: No acute findings Assessment and Plan - Diagnosis (1) Acute blood loss anemia Is this a current diagnosis for this admission?: Yes Plan: Possible due to GI bleeding. Per Dr. Le that the patient is poor candidate for any procedure at this time. We will give her Venofer. (2) Status post fall Is this a current diagnosis for this admission?: Yes Plan: Chest x-ray is negative for rib fracture. (3) Moderate to severe malnutrition Is this a current diagnosis for this admission?: Yes Plan: Patient needs additional supplement. (4) Debility and deconditioning Is this a current diagnosis for this admission?: Yes Plan: Patient may benefit from rehab placement.
[2019-07-18] MEDS ORDERED: IRON SUCROSE COMPLEX 300 MG in NORMAL SALINE 250 ML IV ONE (17:00)
[2019-07-18] MEDS: DONEPEZIL HCL 5 MG TABLET PO SCH (22:26)
[2019-07-19] MEDS: MEGESTROL ACETATE SUSP 400 MG/10 ML UDCUP PO SCH (09:52)
[2019-07-19] MEDS: PANTOPRAZOLE SODIUM 40 MG VIAL IV SCH ×2 (09:52→21:25)
[2019-07-19] MEDS: MULTIVITAMIN TABLET PO SCH (09:52)
[2019-07-19] MEDS: CHOLECALCIFEROL (D3) 1,000 UNIT (25 MCG) TABLET PO SCH (09:52)
--- NOTE | 2019-07-19 17:39 | PDOC PROGRESS REPORT ---
Subjective Progress Note for:: 07/19/19 Subjective:: This is an 8 years old female patient who does not have significant past medical history except for hypertension brought from home with chief complaint of right chest pain after she involved in accidental mechanical fall. Her work-up shows hemoglobin of 9.3 and reportedly several days ago her hemoglobin was 12.7. Her stool for occult blood is positive for heme. Patient has been evaluated by Dr. Le who states that "the patient is a poor candidate for any procedure at this time". He recommended to manage her medically and stabilizer. 07/18/2019: Patient is today more awake alert and conversant. She is not in pain or distress. No adverse event overnight. 07/19/2019: Patient seen resting in bed and surrounded by her daughter and son. Her son is POA for the patient. He states that patient cannot be discharged home and she currently lives by herself. thermometer production worker consulted and placement to prison facilities the plan. Reason For Visit: ANEMIA,SYNCOPE,FALL Physical Exam Vital Signs: Temp Pulse Resp BP Pulse Ox 98.0 F 91 14 171/57 H 94 07/19/19 04:00 07/19/19 14:00 07/19/19 04:00 07/19/19 04:00 07/19/19 04:05 Intake & Output 07/18/19 07/19/19 07/20/19 06:59 06:59 06:59 Intake Total 2702 3144 Output Total 2300 2640 Balance 402 504 Weight 44.3 kg 42.1 kg General appearance: PRESENT: no acute distress Head exam: PRESENT: atraumatic Mouth exam: PRESENT: moist Neck exam: ABSENT: carotid bruit, JVD, lymphadenopathy, thyromegaly Respiratory exam: PRESENT: clear to auscultation raeann. ABSENT: rales, rhonchi, wheezes Cardiovascular exam: PRESENT: RRR. ABSENT: diastolic murmur, rubs, systolic murmur GI/Abdominal exam: PRESENT: normal bowel sounds, soft. ABSENT: distended, guarding, mass, organolmegaly, rebound, tenderness Results Laboratory Results: 07/18/19 04:31 07/17/19 04:37 07/14/19 14:56 Blood Blood Culture - Final NO GROWTH IN 5 DAYS 07/14/19 13:35 Blood Blood Culture - Final NO GROWTH IN 5 DAYS 07/14/19 07/14/19 07/14/19 13:05 13:05 18:49 Creatine Kinase 38 CK-MB (CK-2) 0.73 Troponin I < 0.012 < 0.012 07/15/19 07/15/19 07/15/19 01:09 06:54 22:46 Creatine Kinase 37 CK-MB (CK-2) Troponin I < 0.012 < 0.012 07/15/19 07/16/19 07/16/19 22:46 04:19 04:19 Creatine Kinase 35 CK-MB (CK-2) 0.79 0.85 Troponin I < 0.012 < 0.012 07/16/19 07/16/19 10:21 10:21 Creatine Kinase 38 CK-MB (CK-2) 0.81 Troponin I < 0.012 Impressions: Chest X-Ray 07/14/19 13:29 IMPRESSION: Emphysema and cardiomegaly without acute abnormality of the lungs. No focal airspace opacity. Wrist X-Ray 07/14/19 15:53 IMPRESSION: No evidence of acute bony abnormality. Decreased mineralization with degenerative changes greatest at the 1st carpometacarpal joint. Chest CT 07/14/19 18:02 IMPRESSION: No acute findings Assessment and Plan - Diagnosis (1) Acute blood loss anemia Is this a current diagnosis for this admission?: Yes Plan: Possible due to GI bleeding. Per Dr. Le that the patient is poor candidate for any procedure at this time. We will give her Venofer. (2) Status post fall Is this a current diagnosis for this admission?: Yes Plan: Chest x-ray is negative for rib fracture. (3) Moderate to severe malnutrition Is this a current diagnosis for this admission?: Yes Plan: Patient needs additional supplement. Appetite has improved markedly after she has been started on Megace. (4) Debility and deconditioning Is this a current diagnosis for this admission?: Yes Plan: Patient may benefit from rehab placement.
[2019-07-19] MEDS: DEXTROSE 5%-1/2 NORMAL SALINE 1,000 ML IV PRN (19:50)
[2019-07-19] MEDS: DONEPEZIL HCL 5 MG TABLET PO SCH (21:25)
[2019-07-19] MEDS: ALPRAZOLAM 0.5 MG TABLET PO SCH (21:25)
[2019-07-20] MEDS: ALPRAZOLAM 0.5 MG TABLET PO SCH ×2 (10:16→22:12)
[2019-07-20] MEDS: PANTOPRAZOLE SODIUM 40 MG VIAL IV SCH ×2 (10:16→21:52)
[2019-07-20] MEDS: MEGESTROL ACETATE SUSP 400 MG/10 ML UDCUP PO SCH (10:16)
[2019-07-20] MEDS: CHOLECALCIFEROL (D3) 1,000 UNIT (25 MCG) TABLET PO SCH (10:16)
[2019-07-20] MEDS: MULTIVITAMIN TABLET PO SCH (10:16)
[2019-07-20] MEDS: DEXTROSE 5%-1/2 NORMAL SALINE 1,000 ML IV PRN (16:30)
--- NOTE | 2019-07-20 17:08 | PDOC PROGRESS REPORT ---
Subjective Progress Note for:: 07/20/19 Subjective:: This is an 8 years old female patient who does not have significant past medical history except for hypertension brought from home with chief complaint of right chest pain after she involved in accidental mechanical fall. Her work-up shows hemoglobin of 9.3 and reportedly several days ago her hemoglobin was 12.7. Her stool for occult blood is positive for heme. Patient has been evaluated by Dr. Le who states that "the patient is a poor candidate for any procedure at this time". He recommended to manage her medically and stabilizer. 07/18/2019: Patient is today more awake alert and conversant. She is not in pain or distress. No adverse event overnight. 07/19/2019: Patient seen resting in bed and surrounded by her daughter and son. Her son is POA for the patient. He states that patient cannot be discharged home and she currently lives by herself. order worker consulted and placement to [facility] facilities the plan. 07/20/2019: Today patient's less agitated she is sedated with Xanax that has been ordered for her. Placement to [facility] facility is in the process. Reason For Visit: ANEMIA,SYNCOPE,FALL Physical Exam Vital Signs: Temp Pulse Resp BP Pulse Ox 98.0 F 77 16 143/49 H 98 07/20/19 15:38 07/20/19 15:38 07/20/19 15:38 07/20/19 15:38 07/20/19 15:38 Intake & Output 07/19/19 07/20/19 07/21/19 06:59 06:59 06:59 Intake Total 3144 1812 1222 Output Total 2640 3575 400 Balance 928 -6199 822 Weight 42.1 kg 41.2 kg General appearance: PRESENT: no acute distress, cooperative Mouth exam: PRESENT: moist Neck exam: ABSENT: carotid bruit, JVD, lymphadenopathy, thyromegaly Respiratory exam: PRESENT: clear to auscultation raeann. ABSENT: rales, rhonchi, wheezes GI/Abdominal exam: PRESENT: normal bowel sounds, soft. ABSENT: distended, guarding, mass, organolmegaly, rebound, tenderness Results Laboratory Results: 07/18/19 04:31 07/17/19 04:37 07/14/19 14:56 Blood Blood Culture - Final NO GROWTH IN 5 DAYS 07/14/19 13:35 Blood Blood Culture - Final NO GROWTH IN 5 DAYS 07/14/19 07/14/19 07/14/19 13:05 13:05 18:49 Creatine Kinase 38 CK-MB (CK-2) 0.73 Troponin I < 0.012 < 0.012 07/15/19 07/15/19 07/15/19 01:09 06:54 22:46 Creatine Kinase 37 CK-MB (CK-2) Troponin I < 0.012 < 0.012 07/15/19 07/16/19 07/16/19 22:46 04:19 04:19 Creatine Kinase 35 CK-MB (CK-2) 0.79 0.85 Troponin I < 0.012 < 0.012 07/16/19 07/16/19 10:21 10:21 Creatine Kinase 38 CK-MB (CK-2) 0.81 Troponin I < 0.012 Impressions: Chest X-Ray 07/14/19 13:29 IMPRESSION: Emphysema and cardiomegaly without acute abnormality of the lungs. No focal airspace opacity. Wrist X-Ray 07/14/19 15:53 IMPRESSION: No evidence of acute bony abnormality. Decreased mineralization with degenerative changes greatest at the 1st carpometacarpal joint. Chest CT 07/14/19 18:02 IMPRESSION: No acute findings Assessment and Plan - Diagnosis (1) Acute blood loss anemia Is this a current diagnosis for this admission?: Yes Plan: Possible due to GI bleeding. Per Dr. Le that the patient is poor candidate for any procedure at this time. We will give her Venofer. (2) Status post fall Is this a current diagnosis for this admission?: Yes Plan: Chest x-ray is negative for rib fracture. (3) Moderate to severe malnutrition Is this a current diagnosis for this admission?: Yes Plan: Patient needs additional supplement. Appetite has improved markedly after she has been started on Megace. (4) Debility and deconditioning Is this a current diagnosis for this admission?: Yes Plan: Patient may benefit from rehab placement.
[2019-07-20] MEDS: DONEPEZIL HCL 5 MG TABLET PO SCH (22:12)
[2019-07-21] MEDS: DEXTROSE 5%-1/2 NORMAL SALINE 1,000 ML IV PRN ×2 (02:45→13:36)
[2019-07-21] MEDS: CHOLECALCIFEROL (D3) 1,000 UNIT (25 MCG) TABLET PO SCH (10:01)
[2019-07-21] MEDS: MULTIVITAMIN TABLET PO SCH (10:01)
[2019-07-21] MEDS: PANTOPRAZOLE SODIUM 40 MG VIAL IV SCH (10:01)
[2019-07-21] MEDS: ALPRAZOLAM 0.5 MG TABLET PO SCH ×2 (10:01→22:23)
[2019-07-21] MEDS: MEGESTROL ACETATE SUSP 400 MG/10 ML UDCUP PO SCH (10:02)
[2019-07-21] MEDS: FENTANYL 12 MCG/HR PATCH.TD72 TD SCH (13:30)
--- NOTE | 2019-07-21 13:57 | PDOC PROGRESS REPORT ---
Subjective Progress Note for:: 07/21/19 Subjective:: This is an 8 years old female patient who does not have significant past medical history except for hypertension brought from home with chief complaint of right chest pain after she involved in accidental mechanical fall. Her work-up shows hemoglobin of 9.3 and reportedly several days ago her hemoglobin was 12.7. Her stool for occult blood is positive for heme. Patient has been evaluated by Dr. Le who states that "the patient is a poor candidate for any procedure at this time". He recommended to manage her medically and stabilizer. 07/18/2019: Patient is today more awake alert and conversant. She is not in pain or distress. No adverse event overnight. 07/19/2019: Patient seen resting in bed and surrounded by her daughter and son. Her son is POA for the patient. He states that patient cannot be discharged home and she currently lives by herself. park worker consulted and placement to long term facilities the plan. 07/20/2019: Today patient's less agitated she is sedated with Xanax that has been ordered for her. Placement to long term facility is in the process. 07/21/2019: Patient seen and examined while she is resting in bed comfortably. No adverse changes overnight. Cindy is a social human services assistants has been working on her placement to [facility]. Reason For Visit: ANEMIA,SYNCOPE,FALL Physical Exam Vital Signs: Temp Pulse Resp BP Pulse Ox 98 F 67 24 H 172/61 H 97 07/21/19 05:00 07/21/19 07:00 07/21/19 05:00 07/21/19 05:00 07/21/19 05:00 Intake & Output 07/20/19 07/21/19 07/22/19 06:59 06:59 06:59 Intake Total 1812 2322 1000 Output Total 3575 1150 Balance -1763 1172 1000 Weight 41.2 kg 39.5 kg General appearance: PRESENT: no acute distress Neck exam: ABSENT: carotid bruit, JVD, lymphadenopathy, thyromegaly Respiratory exam: PRESENT: clear to auscultation raeann. ABSENT: rales, rhonchi, wheezes Cardiovascular exam: PRESENT: RRR. ABSENT: diastolic murmur, rubs, systolic murmur GI/Abdominal exam: PRESENT: normal bowel sounds, soft. ABSENT: distended, guarding, mass, organolmegaly, rebound, tenderness Neurological exam: PRESENT: alert, awake Results Laboratory Results: 07/18/19 04:31 07/17/19 04:37 07/14/19 07/14/19 07/14/19 13:05 13:05 18:49 Creatine Kinase 38 CK-MB (CK-2) 0.73 Troponin I < 0.012 < 0.012 07/15/19 07/15/19 07/15/19 01:09 06:54 22:46 Creatine Kinase 37 CK-MB (CK-2) Troponin I < 0.012 < 0.012 07/15/19 07/16/19 07/16/19 22:46 04:19 04:19 Creatine Kinase 35 CK-MB (CK-2) 0.79 0.85 Troponin I < 0.012 < 0.012 07/16/19 07/16/19 10:21 10:21 Creatine Kinase 38 CK-MB (CK-2) 0.81 Troponin I < 0.012 Impressions: Chest X-Ray 07/14/19 13:29 IMPRESSION: Emphysema and cardiomegaly without acute abnormality of the lungs. No focal airspace opacity. Wrist X-Ray 07/14/19 15:53 IMPRESSION: No evidence of acute bony abnormality. Decreased mineralization with degenerative changes greatest at the 1st carpomet acarpal joint. Chest CT 07/14/19 18:02 IMPRESSION: No acute findings Assessment and Plan - Diagnosis (1) Acute blood loss anemia Is this a current diagnosis for this admission?: Yes Plan: Possible due to GI bleeding. Per Dr. Le that the patient is poor candidate for any procedure at this time. We will give her Venofer. (2) Status post fall Is this a current diagnosis for this admission?: Yes Plan: Chest x-ray is negative for rib fracture. (3) Moderate to severe malnutrition Is this a current diagnosis for this admission?: Yes Plan: Patient needs additional supplement. Appetite has improved markedly after she has been started on Megace. (4) Debility and deconditioning Is this a current diagnosis for this admission?: Yes Plan: Awaiting placement to long term facility.
[2019-07-21] MEDS: DONEPEZIL HCL 5 MG TABLET PO SCH (22:23)
[2019-07-22] MEDS: DEXTROSE 5%-1/2 NORMAL SALINE 1,000 ML IV PRN ×3 (02:00→20:41)
[2019-07-22] MEDS: MEGESTROL ACETATE SUSP 400 MG/10 ML UDCUP PO SCH (10:55)
[2019-07-22] MEDS: MULTIVITAMIN TABLET PO SCH (10:55)
[2019-07-22] MEDS: CHOLECALCIFEROL (D3) 1,000 UNIT (25 MCG) TABLET PO SCH (10:55)
--- NOTE | 2019-07-22 14:08 | PDOC PROGRESS REPORT ---
Subjective Progress Note for:: 07/22/19 Subjective:: This is an 8 years old female patient who does not have significant past medical history except for hypertension brought from home with chief complaint of right chest pain after she involved in accidental mechanical fall. Her work-up shows hemoglobin of 9.3 and reportedly several days ago her hemoglobin was 12.7. Her stool for occult blood is positive for heme. Patient has been evaluated by Dr. Le who states that "the patient is a poor candidate for any procedure at this time". He recommended to manage her medically and stabilizer. 07/18/2019: Patient is today more awake alert and conversant. She is not in pain or distress. No adverse event overnight. 07/19/2019: Patient seen resting in bed and surrounded by her daughter and son. Her son is POA for the patient. He states that patient cannot be discharged home and she currently lives by herself. biofuels plant construction worker consulted and placement [facility] the plan. 07/20/2019: Today patient's less agitated she is sedated with Xanax that has been ordered for her. [facility] to [facility] is in the process. 07/21/2019: Patient seen and examined while she is resting in bed comfortably. No adverse changes overnight. Cindy is a public health social worker has been working on her placement to [facility]. 07/22/2019: Patient seen resting in bed comfortably. Complains of pain on her left foot. On the examination of the foot she has tried laceration which she sustained following mechanical fall at home. Reason For Visit: ANEMIA,SYNCOPE,FALL Physical Exam Vital Signs: Temp Pulse Resp BP Pulse Ox 98.0 F 67 16 173/46 H 98 07/22/19 11:41 07/22/19 11:41 07/22/19 11:41 07/22/19 11:41 07/22/19 11:41 Intake & Output 07/21/19 07/22/19 07/23/19 06:59 06:59 06:59 Intake Total 2322 2477 902 Output Total 1150 1375 Balance 1172 1102 902 Weight 39.5 kg 42.9 kg General appearance: PRESENT: no acute distress Eye exam: PRESENT: conjunctiva pink Respiratory exam: PRESENT: clear to auscultation raeann. ABSENT: rales, rhonchi, wheezes Cardiovascular exam: PRESENT: RRR. ABSENT: diastolic murmur, rubs, systolic murmur GI/Abdominal exam: PRESENT: normal bowel sounds, soft. ABSENT: distended, guarding, mass, organolmegaly, rebound, tenderness Extremities exam: PRESENT: other - Dried laceration about 1 x 1 cm in the left heel. Neurological exam: PRESENT: alert, awake Results Laboratory Results: 07/18/19 04:31 07/17/19 04:37 07/14/19 07/14/19 07/14/19 13:05 13:05 18:49 Creatine Kinase 38 CK-MB (CK-2) 0.73 Troponin I < 0.012 < 0.012 07/15/19 07/15/19 07/15/19 01:09 06:54 22:46 Creatine Kinase 37 CK-MB (CK-2) Troponin I < 0.012 < 0.012 07/15/19 07/16/19 07/16/19 22:46 04:19 04:19 Creatine Kinase 35 CK-MB (CK-2) 0.79 0.85 Troponin I < 0.012 < 0.012 07/16/19 07/16/19 10:21 10:21 Creatine Kinase 38 CK-MB (CK-2) 0.81 Troponin I < 0.012 Impressions: Chest X-Ray 07/14/19 13:29 IMPRESSION: Emphysema and cardiomegaly without acute abnormality of the lungs. No focal airspace opacity. Wrist X-Ray 07/14/19 15:53 IMPRESSION: No evidence of acute bony abnormality. Decreased mineralization with degenerative changes greatest at the 1st carpometacarpal joint. Chest CT 07/14/19 18:02 IMPRESSION: No acute findings Assessment and Plan - Diagnosis (1) Acute blood loss anemia Is this a current diagnosis for this admission?: Yes Plan: Possible due to GI bleeding. Per Dr. Le that the patient is poor candidate for any procedure at this time. We will give her Venofer. (2) Status post fall Is this a current diagnosis for this admission?: Yes Plan: Chest x-ray is negative for rib fracture. (3) Moderate to severe malnutrition Is this a current diagnosis for this admission?: Yes Plan: Patient needs additional supplement. Appetite has improved markedly after she has been started on Megace. (4) Debility and deconditioning Is this a current diagnosis for this admission?: Yes Plan: [facility]ing [facility].
[2019-07-22] MEDS: ALPRAZOLAM 0.5 MG TABLET PO SCH ×2 (16:25→21:12)
[2019-07-22] MEDS: ERTAPENEM SODIUM 1 GM in NORMAL SALINE 50 ML IV SCH (19:58)
[2019-07-22] MEDS: DONEPEZIL HCL 5 MG TABLET PO SCH (21:12)
[2019-07-22] MEDS: CYPROHEPTADINE HCL 4 MG TABLET PO SCH (21:13)
[2019-07-22] MEDS ORDERED: MIRTAZAPINE 15 MG TABLET PO SCH (22:00)
[2019-07-23] MEDS: CYPROHEPTADINE HCL 4 MG TABLET PO SCH ×2 (05:39→14:21)
[2019-07-23] MEDS: DEXTROSE 5%-1/2 NORMAL SALINE 1,000 ML IV PRN (06:21)
[2019-07-23] MEDS: MEGESTROL ACETATE SUSP 400 MG/10 ML UDCUP PO SCH (09:21)
[2019-07-23] MEDS: ERTAPENEM SODIUM 1 GM in NORMAL SALINE 50 ML IV SCH (09:21)
[2019-07-23] MEDS: CHOLECALCIFEROL (D3) 1,000 UNIT (25 MCG) TABLET PO SCH (09:22)
[2019-07-23] MEDS: ALPRAZOLAM 0.5 MG TABLET PO SCH (09:22)
[2019-07-23] MEDS: MULTIVITAMIN TABLET PO SCH (09:22)
--- NOTE | 2019-07-23 09:57 | PDOC TRANSFER SUMMARY ---
General - Admit/Disc Date/PCP Admission Date/Primary Care Provider: 07/14/19 17:38 EROS VENCES NP Discharge Date: 07/23/19 - Discharge Diagnosis (1) Complicated UTI (urinary tract infection) Is this a current diagnosis for this admission?: Yes (2) Acute blood loss anemia Is this a current diagnosis for this admission?: Yes (3) Status post fall Is this a current diagnosis for this admission?: Yes (4) Moderate to severe malnutrition Is this a current diagnosis for this admission?: Yes (5) Debility and deconditioning Is this a current diagnosis for this admission?: Yes - Additional Information Resuscitation Status: Do Not Resuscitate Home Medications: Clopidogrel Bisulfate [Plavix 75 mg Tablet] 75 mg PO DAILY 07/14/19 Donepezil HCl [Aricept] 10 mg PO QHS 07/14/19 Fluoxetine HCl [Prozac 20 mg Capsule] 20 mg PO DAILY 07/14/19 Losartan Potassium [Cozaar 25 mg Tablet] 12.5 mg PO DAILY 07/14/19 Trazodone HCl 25 mg PO QHS 07/14/19 History of Present Illness Admission Date/PCP: 07/14/19 17:38 EROS VENCES NP History of Present Illness: ARPIT ARITA is a 78 year old female who presents to the ER after having a fall/possible syncopal episode last evening. Patient may have laid on the floor up to 4 hours. Patient states pain in her right ribs secondary to this fall. Chest x-ray was normal on obtaining CT at this time. Patient was also found to be anemic. Patient was here several days ago had a hemoglobin of 12.7 today is 9.3. Patient also had heme positive stool in the ER. Patient very poor historian. No family at bedside. No treatment prior to arrival. All activities elevating factor. Hospital Course Hospital Course: This is an 8 years old female patient who does not have significant pa st medical history except for hypertension brought from home with chief complaint of right chest pain after she involved in accidental mechanical fall. Her work-up shows hemoglobin of 9.3 and reportedly several days ago her hemoglobin was 12.7. Her stool for occult blood is positive for heme. Patient has been evaluated by Dr. Le who states that "the patient is a poor candidate for any procedure at this time". He recommended to manage her medically and stabilizer. 07/18/2019: Patient is today more awake alert and conversant. She is not in pain or distress. No adverse event overnight. 07/19/2019: Patient seen resting in bed and surrounded by her daughter and son. Her son is POA for the patient. He states that patient cannot be discharged home and she currently lives by herself. highway maintenance crew worker consulted and placement to long term facilities the plan. 07/20/2019: Today patient's less agitated she is sedated with Xanax that has been ordered for her. Placement to long term facility is in the process. 07/21/2019: Patient seen and examined while she is resting in bed comfortably. No adverse changes overnight. Cindy is a social and political studies professor has been working on her placement to [facility]. 07/22/2019: Patient seen resting in bed comfortably. Complains of pain on her left foot. On the examination of the foot she has tried laceration which she sustained following mechanical fall at home. 07/23/2019: Patient seen and examined while she is resting in bed comfortably. No adverse events overnight. Her vitals and blood works are relatively unremarkable. Yesterday prior to her admission her urine culture was positive for E. coli ESBL. Patient has been started on ertapenem and her last dose of ertapenem will be on July 27, 2019. I will continue all her home medication also I will send her home with Remeron 7.5 mg p.o. nightly for sedation and to boost her appetite, cholecalciferol 2000 units p.o. daily and iron sulfate 325 mg twice a day. Physical Exam Vital Signs: Temp Pulse Resp BP Pulse Ox 98.0 F 59 L 16 140/44 H 98 07/23/19 03:59 07/23/19 07:00 07/23/19 03:59 07/23/19 03:59 07/23/19 03:59 Intake & Output 07/22/19 07/23/19 07/24/19 06:59 06:59 06:59 Intake Total 3277 3316 50 Output Total 1375 2225 Balance 1102 1091 50 Weight 42.9 kg 43.2 kg General appearance: PRESENT: no acute distress Head exam: PRESENT: atraumatic Mouth exam: PRESENT: moist, tongue midline Neck exam: ABSENT: carotid bruit, JVD, lymphadenopathy, thyromegaly Respiratory exam: PRESENT: clear to auscultation raeann. ABSENT: rales, rhonchi, wheezes Cardiovascular exam: PRESENT: RRR. ABSENT: diastolic murmur, rubs, systolic murmur GI/Abdominal exam: PRESENT: normal bowel sounds, soft. ABSENT: distended, guarding, mass, organolmegaly, rebound, tenderness Neurological exam: PRESENT: alert, awake Results Laboratory Results: 07/18/19 04:31 07/17/19 04:37 07/14/19 07/14/19 07/14/19 13:05 13:05 18:49 Creatine Kinase 38 CK-MB (CK-2) 0.73 Troponin I < 0.012 < 0.012 07/15/19 07/15/19 07/15/19 01:09 06:54 22:46 Creatine Kinase 37 CK-MB (CK-2) Troponin I < 0.012 < 0.012 07/15/19 07/16/19 07/16/19 22:46 04:19 04:19 Creatine Kinase 35 CK-MB (CK-2) 0.79 0.85 Troponin I < 0.012 < 0.012 07/16/19 07/16/19 10:21 10:21 Creatine Kinase 38 CK-MB (CK-2) 0.81 Troponin I < 0.012 Impressions: Chest X-Ray 07/14/19 13:29 IMPRESSION: Emphysema and cardiomegaly without acute abnormality of the lungs. No focal airspace opacity. Wrist X-Ray 07/14/19 15:53 IMPRESSION: No evidence of acute bony abnormality. Decreased mineralization with degenerative changes greatest at the 1st carpometacarpal joint. Chest CT 07/14/19 18:02 IMPRESSION: No acute findings Qualifiers - * PATIENT BEING DISCHARGED WITH ANY OF THE FOLLOWING DIAGNOSIS: No Acute Heart Failure - Is this a Heart Failure Patient?: No LVEF < 40%?: No- if no continue to question #3 3. Anticoagulant therapy for permanect/persistent/paraoxysmal Afib or Aflutter: N/A
[2019-07-23 12:10] VITALS: BP 145/49
== END 2019-07-23 14:15 | DRG 811 ==
LOC: ER 12:40 → EH 17:38 → 3S 20:17
PROVIDERS: ADMIT Internal Medicine; ATTEND Internal Medicine
DX: D62 Acute posthemorrhagic anemia (principal); E43 Unspecified severe protein-calorie malnutrition; N39.0 Urinary tract infection, site not specified; Z68.1 Body mass index [BMI] 19.9 or less, adult; R55 Syncope and collapse; D64.9 Anemia, unspecified; Z66 Do not resuscitate; W19.XXXA Unspecified fall, initial encounter; Z60.2 Problems related to living alone; I10 Essential (primary) hypertension; G30.9 Alzheimer's disease, unspecified; F02.80 Dementia in other diseases classified elsewhere, unspecified severity, without behavioral disturbance, psychotic disturbance, mood disturbance, and anxiety; J44.9 Chronic obstructive pulmonary disease, unspecified; R07.81 Pleurodynia; Z79.899 Other long term (current) drug therapy; Z87.891 Personal history of nicotine dependence; Z88.0 Allergy status to penicillin; Z79.82 Long term (current) use of aspirin; Z79.891 Long term (current) use of opiate analgesic; Z79.52 Long term (current) use of systemic steroids
CPT/HCPCS: 36415; 71045; 71250; 80048; 80053; 81001; 82550; 82553; 82962; 84443; 84484; 85025; 85027; 87040; 93005; 93010; 93306; 96360; 99285; J0360; J1170; J1335; J1756; J3486; J3490; J7030; J7040; J7050; S0164